=== PATIENT | male | born 1940 | race Caucasian/White ===

== ENCOUNTER 2020-07-13 07:58 | Outpatient (REF) | payer MEDICARE, SELFPAY ==
[2020-07-13 10:23] LABS: Hematocrit 42.6 % (42-52); Hemoglobin 14.5 g/dl (14.0-18.0); Mean Corpuscular Hemoglobin 31.6 pg (27.0-33.0); Mean Corpuscular Volume 92.8 fL (80-98); Mean Platelet Volume 10.3 fL (9.4-12.4); Platelet Count 201 X10*3/uL (160-400); Red Blood Count 4.59 X10*6/uL (4.60-5.80); Red Cell Distribution Width 12.2 % (11.0-16.0); White Blood Count 6.2 X10*3/uL (4.8-10.8)
[2020-07-13 10:27] LABS: Estimated Average Glucose 137 mg/dL; Hemoglobin A1c % 6.4 %
[2020-07-13 10:48] LABS: Glucose Urine UA NEG (NEG); Leukocyte Esterase Urine NEG (NEG); Nitrite Urine NEG (NEG); PH 6.5 (5.0-8.0); Urine Blood NEG (NEG); Urine Ketones NEG (NEG); Urine Protein NEG (NEG-TRACE)
[2020-07-13 10:50] LABS: Appearance Urine CLEAR; Color Urine YELLOW
[2020-07-13 10:54] LABS: Alanine Aminotransferase 17 U/L (0-40); Albumin Level 3.7 g/dL (3.5-5.0); Alkaline Phosphatase 60 U/L (39-117); Aspartate Amino Transferase 19 U/L (5-37); Bilirubin Total 1.1 mg/dL (0.0-1.0); Blood Urea Nitrogen 21 mg/dL (9-16); Calcium 8.8 mg/dL (8.4-10.2); Estimated Glomerular Filt Rate > 60; Glucose Random 120 mg/dL (60-115); Total Protein 6.1 g/dL (6.5-8.0)
[2020-07-13 11:23] LABS: Anion Gap 10 (12-20); Carbon Dioxide 31 mmol/L (22-29); Chloride 104 mmol/L (96-108); Potassium 4.4 mmol/l (3.3-5.1); Sodium 141 mmol/L (135-145)
[2020-07-13 11:33] LABS: Creatinine Urine 110.03 mg/dL; Microalbumin Urine < 5.0 mg/L
== END 2020-07-13 07:59 | disposition home or self-care (01) ==
LOC: HO.10HDL 07:58
PROVIDERS: PCP Internal Medicine; Visit Provider Internal Medicine
DX: I10 Essential (primary) hypertension (principal); K21.9 Gastro-esophageal reflux disease without esophagitis; R73.01 Impaired fasting glucose; E78.00 Pure hypercholesterolemia, unspecified
CPT/HCPCS: 36415; 80053; 81003; 82043; 83036; 85027

== ENCOUNTER 2020-08-16 07:34 | Outpatient (REF) | payer MEDICARE, SELFPAY ==
[2020-08-16 10:55] LABS: Anion Gap 8 (12-20); Blood Urea Nitrogen 16 mg/dL (9-16); Calcium 8.5 mg/dL (8.4-10.2); Carbon Dioxide 32 mmol/L (22-29); Chloride 104 mmol/L (96-108); Cholesterol 112 mg/dL; Estimated Glomerular Filt Rate > 60; Glucose Fasting 121 mg/dL (60-99); HDL Cholesterol 47 mg/dL; LDL Cholesterol Calculated 57 mg/dl; Potassium 4.3 mmol/l (3.3-5.1); Sodium 140 mmol/L (135-145); Triglycerides 43 mg/dL
[2020-08-16 11:27] LABS: Prostate Specific Antigen < 0.05 ng/mL (<0.05-4.0)
== END 2020-08-16 07:35 | disposition home or self-care (01) ==
LOC: HO.10HDL 07:34
PROVIDERS: Visit Provider Internal Medicine
DX: I10 Essential (primary) hypertension (principal); R73.01 Impaired fasting glucose; E78.00 Pure hypercholesterolemia, unspecified; Z12.5 Encounter for screening for malignant neoplasm of prostate; Z85.46 Personal history of malignant neoplasm of prostate
CPT/HCPCS: 80048; 80061; 84153

== ENCOUNTER → 2020-09-04 09:28 | Outpatient (BNVA) | payer MEDICARE, SELFPAY | PROVIDERS: PCP Internal Medicine; Referring Provider Internal Medicine; Visit Provider Internal Medicine Cardiovascular Disease | DX: I25.10 Atherosclerotic heart disease of native coronary artery without angina pectoris (principal); I48.0 Paroxysmal atrial fibrillation | CPT/HCPCS: 93005; 99212 ==

== ENCOUNTER 2021-02-19 08:24 | Outpatient (REF) | payer MEDICARE, SELFPAY ==
[2021-02-19 10:26] LABS: Appearance Urine CLEAR; Color Urine YELLOW; Glucose Urine UA NEG (NEG); Leukocyte Esterase Urine NEG (NEG); Nitrite Urine NEG (NEG); Urine Blood NEG (NEG); Urine Ketones NEG (NEG); Urine Protein NEG (NEG-TRACE)
[2021-02-19 10:35] LABS: Hematocrit 44.8 % (42-52); Hemoglobin 15.1 g/dl (14.0-18.0); Mean Corpuscular HGB Conc 33.7 g/dl (31.0-36.0); Mean Corpuscular Hemoglobin 31.5 pg (27.0-33.0); Mean Corpuscular Volume 93.5 fL (80-98); Mean Platelet Volume 10.3 fL (9.4-12.4); Platelet Count 213 X10*3/uL (160-400); Red Blood Count 4.79 X10*6/uL (4.60-5.80); Red Cell Distribution Width 12.2 % (11.0-16.0); White Blood Count 5.8 X10*3/uL (4.8-10.8)
[2021-02-19 10:48] LABS: Alanine Aminotransferase 22 U/L (0-40); Albumin Level 3.8 g/dL (3.5-5.0); Alkaline Phosphatase 62 U/L (39-117); Anion Gap 11 (12-20); Aspartate Amino Transferase 23 U/L (5-37); Bilirubin Total 1.3 mg/dL (0.0-1.0); Blood Urea Nitrogen 13 mg/dL (9-16); Calcium 9.1 mg/dL (8.4-10.2); Carbon Dioxide 31 mmol/L (22-29); Chloride 103 mmol/L (96-108); Cholesterol 119 mg/dL; Estimated Glomerular Filt Rate > 60; Glucose Random 119 mg/dL (60-115); HDL Cholesterol 50 mg/dL; LDL Cholesterol Calculated 59 mg/dl; Potassium 4.5 mmol/L (3.3-5.1); Sodium 140 mmol/L (135-145); Total Protein 6.3 g/dL (6.5-8.0); Triglycerides 54 mg/dL
[2021-02-19 11:10] LABS: Thyroid Stimulating Hormone 0.87 uIU/mL (0.32-4.0)
== END 2021-02-19 08:25 | disposition home or self-care (01) ==
LOC: HO.10HDL 08:24
PROVIDERS: Visit Provider Internal Medicine
DX: I10 Essential (primary) hypertension (principal); I25.10 Atherosclerotic heart disease of native coronary artery without angina pectoris; E78.00 Pure hypercholesterolemia, unspecified
CPT/HCPCS: 36415; 80053; 80061; 81003; 84443; 85027

== ENCOUNTER → 2021-03-12 08:58 | Outpatient (BNVA) | payer MEDICARE, SELFPAY | LOC: CF 10:24 | PROVIDERS: PCP Internal Medicine; Referring Provider Internal Medicine; Visit Provider Internal Medicine Cardiovascular Disease ==

== ENCOUNTER → 2021-03-12 10:24 | Outpatient (REF) | payer MEDICARE, SELFPAY ==
--- NOTE | 2021-03-12 10:26 | CA_ITS ---
Transthoracic Echocardiogram Amended Patient (Last, First, Middle): Sherman Watkins W Gender: Male Date of : 1940 Age: 80 Procedure Date: 03/12/2021 Procedure Type: Transthoracic Echocardiogram Location: OP Height: 167.64 cm Weight: 65.77 kg BSA: 1.74 m2 Heart Rate: bpm BP: 130 / 76 mmHg Director Of Acquisition Marketing: Referring MD: Hiro Wilson MD Symptoms: I20.0 - Unstable angina Study Quality: Good ECG Rhythm: Sinus Conclusions: - The left ventricular systolic function is mildly decreased. The visually estimated ejection fraction is between 40-45%. The calculated ejection fraction is 44% by biplane method. - The basal inferior and basal inferolateral segments are akinetic. - The mid inferior and mid inferolateral segments are hypokinetic. - No obvious valvular pathology seen on this study. Findings Left Ventricle Normal left ventricular cavity size. There is mildly increased left ventricular wall thickness. The left ventricular systolic function is mildly decreased. The visually estimated ejection fraction is between 40-45%. The calculated ejection fraction is 44% by biplane method. There is mild global hypokinesis. E/E prime ratio is between 8 and 15 consistent with indeterminate filling pressures. Evidence suggests grade I (mild) diastolic dysfunction. Wall Motion Rest Echo Findings The mid inferior and mid inferolateral segments are hypokinetic. The basal inferior and basal inferolateral segments are akinetic. Right Ventricle Normal right ventricular cavity size. There is normal right ventricular systolic function. Atria The left atrium is normal in size. The right atrium is normal in size. Aortic Valve There is a normal trileaflet aortic valve. There is no aortic valve stenosis. There is trace (trivial) aortic valve regurgitation. Mitral Valve The mitral valve appears normal. There is mild mitral valve regurgitation. There is no mitral valve stenosis. Pulmonic Valve The pulmonic valve was not well visualized. Tricuspid Valve Normal tricuspid valve structure. There is mild tricuspid valve regurgitation. The pulmonary artery systolic pressure is normal. Great Vessels The aortic annulus, sinuses of valsalva, and asc aorta are normal in size. Venous The inferior vena cava is normal in size and collapses greater than 50% with inspiration. Pericardium/Pleural There is no evidence of pericardial effusion. Prior Study Comparison Changes noted compared to prior study dated: 02/15/2020. LVEF diminished. See comments on wall motion. Recommendations, Care & Conclusions No obvious valvular pathology seen on this study. Measurements 2D Linear Measurements IVSd: 1.27 0.6-0.9/0.6-1.0 cm LVIDd: 3.87 3.9-5.3/4.2-5.9 cm LVIDd Index: 2.22 2.4-3.2/2.2-3.1 cm/m2 LVIDs: 2.44 2.0-3.6 cm LVPWd: 1.23 0.7-1.1 cm Ao Root: 3.60 2.1-3.5 cm LA Diam: 3.70 2.7-3.8/3.0-4.0 cm LAIDs Index: 2.13 1.5-2.3 cm/m2 LV Mass: 208.53 67-162/88-224 g LV Mass Index: 119.85 43-95/49-115 g/m2 LVOT Diam: 2.10 3.0+(-)1.3 cm 2D Systolic Function EF 4C: 45.10 >55% EF 2C: 44.00 >55% EF BiP: 43.80 >55% Mitral Valve MV Pk E: 0.57 MV PK A: 0.39 MV Decel Time: 268.00 E/A: 1.50 E'Lateral: 6.96 E'Medial: 4.35 E/E' Med: 13.10 E/E' Lat: 8.20 PHT: 78.00 MVA PHT: 2.82 Decel Pepin: 2.13 Aortic Valve AoV Pk Tyler: 1.05 AoV Mn Tyler: 0.60 AoV VTI: 0.24 AoV Pk Grad: 4.00 Aov Mn Grad: 2.00 JAYSON Cont.VTI: 2.47 LVOT LVOT Pk Tyler: 0.68 LVOT Mn Tyler: 0.38 LVOT VTI: 0.17 LVOT Pk Grad: 2.00 LVOT Mn Grad: 1.00 LVOT Diam: 2.10 LVOT Area: 3.46 Diastolic Function MV Pk E: 0.57 MV Pk A: 0.39 E/A: 1.50 E'Medial: 4.35 E/E' Med: 13.10 E' Laterial: 6.96 E/E' Lat: 8.20 Tricuspid Valve TR Pk Tyler: 2.35 TR Pk Grad: 22.00 RA Press: 3.00 RVSP: 25.00 Great Vessels Aorta Ao Root-2D: 3.60 2.0-3.7 cm Ao Asc: 3.50 2.1-3.4 cm Pulmonary Valve PV Pk Tyler: 0.88 Peak PV Grad: 3.00 Updated in Other Vendor System with Status of Final Sony Steel MD electronically signed on 03/12/2021 11:49:40 AM with status of Final
== END ==
LOC: HO.CARD 10:24
PROVIDERS: Visit Provider Internal Medicine Cardiovascular Disease
DX: I20.0 Unstable angina (principal)
CPT/HCPCS: 93005; 93306; 99212

== ENCOUNTER 2021-03-12 11:29 | Inpatient (IN) | payer MEDICARE, SELFPAY ==
[2021-03-12] VITALS (10 sets, daily range): BP systolic 95–157; BP diastolic 58–97; PULSE 52–73; RESP 12–18; TEMP 36.5–36.6; O2SAT 93–98; BMI 23.4; BMI 27.2
--- NOTE | 2021-03-12 11:46 | ED.CHESTPAIN ---
HPI - Chest Pain General Chief Complaint: General Medical Stated Complaint: Chest Pain Time Seen by Provider: 03/12/21 11:46 Source: patient Mode of arrival: ambulatory Limitations: no limitations History of Present Illness HPI narrative: Patient was in the ED 1 week ago at [facility], they thought he was having a heart attack was admitted to observation. Related Data Home Medications Medication Instructions Recorded Confirmed apixaban 5 mg tablet 5 mg PO BID 09/04/20 03/12/21 lisinopril 10 mg tablet 10 mg PO DAILY 09/04/20 03/12/21 metoprolol tartrate 50 mg tablet 50 mg PO BID tab 09/04/20 03/12/21 Previous Rx's Medication Instructions Recorded atorvastatin 20 mg tablet 20 mg PO DAILY #90 tab 02/11/21 isosorbide mononitrate 30 mg 30 mg PO DAILY #30 tab 03/12/21 tablet,extended release 24 hr omeprazole magnesium 20 mg 20 mg PO DAILY #30 tab 03/12/21 tablet,delayed release Allergies Allergy/AdvReac Type Severity Reaction Status Date / Time No Known Allergies Allergy Unverified 06/14/20 15:29 Review of Systems Constitutional: Constitutional: Reports no additional constitutional complaints Eyes: Eyes: Reports no additional eye complaints ENT: Denies dizziness Cardiovascular: Cardiovascular: Reports no additional cardiovascular complaints Respiratory: Respiratory: Reports as per HPI Gastrointestinal: Gastrointestinal: Reports no additional gastrointestinal complaints Musculoskeletal: Musculoskeletal: Reports no additional musculoskeletal complaints Integumentary/Breasts: Skin/Breast: Denies rash Neurologic: Reports system reviewed and no additional complaints, except as documented, Denies dizziness and Denies Sensory deficit (Neuro) Psychiatric: Psychiatric: Denies anxiety [facility] Past Medical History Medical History CAD (coronary artery disease) HTN (hypertension) Hyperlipidemia Paroxysmal atrial fibrillation Surgical History History of hip replacement Hx of cardiac cath Hx of prostatectomy Stented coronary artery Family History Family History Father Diabetes Mother No problems noted. Social History Social History Alcohol intake: current Alcohol intake frequency: holidays/special occasions only Alcohol type: beer Patient Tobacco Use Status: Never used Tobacco Use of substances other than those prescribed or required for medical reasons: No Advance Directives: Yes Advance Directives Information Provided: No Advance Directives on File: No Physical Exam Vital Signs: Vital Signs: Last Vital Signs Temp 97.7 F 03/12/21 11:46 Pulse 57 03/12/21 12:15 Resp 12 03/12/21 11:46 BP 150/81 H 03/12/21 12:15 Pulse Ox 93 03/12/21 11:46 Body Mass Index 23.4 Const: General: healthy appearing Nutritional Appearance: average body habitus Orientation/consciousness: oriented to person and patient oriented x3 Limitations: no limitations HENMT: Head: Yes normal to inspection Ears: external ears normal General nose exam: Normal external nose present Mouth: Normal oral and palatal mucosa present and oropharynx normal Throat: Yes posterior oropharynx normal Eyes: General: appearance normal, both eyes and all related structures Neck: Other: supple Neck: Yes normal visual inspection Chest: Chest palpation & inspection: normal inspection of the chest Resp: Auscultation: clear to auscultation bilaterally Cardio: Jugular venous distension: no JVD Rate: regular rate Rhythm: regular rhythm Heart sounds: S1 normal heart sound present and S2 normal heart sound present GI: Inspection: Yes normal to inspection Palpation (GI): Soft to palpation, nontender and No hepatosplenomegaly present Auscultation: normal bowel sounds : General: Yes no CVA tenderness Back/Spine/Pelvis: Back: no CVA tenderness Skin: General skin exam: no rashes or lesions noted Neuro: General: oriented to person and patient oriented x3 Cranial nerves: Yes CN's II-XII intact bilaterally Motor exam (neuro): 5/5 motor strength present throughout Sensory Exam: No Sensory deficit (Neuro) Extrem: General: Yes normal to inspection Psych: Appearance: grossly normal Course Course Course Narrative: Discussed with Dr. Wilson, went to see patient and has more chest pain inferior dynamic twaves, echo with new posterior changes. Admit today for likely posterior ischemia Reevaluation(s) Reevaluation #1: troponin was positive, will admit Time: 13:36 MDM - Chest Pain Lab Data Result diagrams: 03/12/21 12:01 03/12/21 12:01 Labs: Lab Results 03/12/21 03/12/21 03/12/21 Range/Units 12:01 12:01 12:01 WBC 6.7 (4.8-10.8) X10*3/uL RBC 5.12 (4.60-5.80) X10*6/uL Hgb 16.2 (14.0-18.0) g/dl Hct 47.4 (42-52) % MCV 92.6 (80-98) fL MCH 31.6 (27.0-33.0) pg MCHC 34.2 (31.0-36.0) g/dl RDW 12.2 (11.0-16.0) % Plt Count 209 (160-400) X10*3/uL MPV 9.7 (9.4-12.4) fL Immature Gran % (Auto) 0.3 (0.0-0.4) % Neut % (Auto) 77.6 H (45-73) % Lymph % (Auto) 12.7 L (20-40) % [place] % (Auto) 8.1 (2-11) % Eos % (Auto) 0.7 (0-4) % Baso % (Auto) 0.6 (0-2) % Lymph # (Auto) 0.9 L (1.2-4.9) X10*3/uL [place] # (Auto) 0.5 (0.1-1.2) X10*3/uL Eos # (Auto) 0.1 (0.0-0.4) X10*3/uL Baso # (Auto) 0.0 (0.0-0.2) X10*3/uL Abs Immat Gran (auto) 0.02 (0.00-0.03) X10*3/uL Absolute Neuts (auto) 5.2 (2.0-8.3) X10*3/uL Absolute Nucleated RBC 0.000 (0.0-0.012) X10*3/uL Nucleated RBC % (auto) 0.0 (0.0-0.2) /100WBC Sodium 143 (135-145) mmol/L Potassium 4.5 (3.3-5.1) mmol/L Chloride 105 (96-108) mmol/L Carbon Dioxide 28 (22-29) mmol/L Anion Gap 15 (12-20) BUN 17 H (9-16) mg/dL Creatinine 0.92 (0.5-1.4) mg/dL Estim Creat Clear Calc 57.8 Estimated GFR > 60 Random Glucose 162 H D (60-115) mg/dL Calcium 9.7 D (8.4-10.2) mg/dL Troponin I High Sens 135.9 H* (<3.5-35.0) ng/L ECG Data ECG #1: Attestation: I personally reviewed and interpreted this ECG as follows: Interpretation: sinus rate 50, no st or twave changes Discharge Plan Discharge Clinical Impression: Unstable angina CAD (coronary artery disease) Qualifiers: Coronary Disease-Associated Artery/Lesion type: unspecified vessel or lesion type [place] vs. transplanted heart: [place] heart Associated angina: with unstable angina Qualified Code(s): I25.110 - Atherosclerotic heart disease of [place] coronary artery with unstable angina pectoris Patient Disposition: Admitted As Inpatient
--- NOTE | 2021-03-12 11:58 | ECG_ITS ---
Test Reason : CHEST PAIN Blood Pressure : / mmHG Vent. Rate : 051 BPM Atrial Rate : 051 BPM P-R Int : 198 ms QRS Dur : 108 ms QT Int : 478 ms P-R-T Axes : 072 -24 -14 degrees QTc Int : 440 ms Sinus bradycardia Septal infarct , age undetermined Abnormal ECG When compared with ECG of 27-AUG-2018 07:57, Nonspecific T wave abnormality now evident in Lateral leads Referred By: Prem Walsh Electronically Signed By:KEERTHI ANDERSEN
[2021-03-12 12:14] LABS: MANUAL DIFF FLAG NO
[2021-03-12 12:15] LABS: Basophils Percent Auto 0.6 % (0-2); Eosinophils Absolute Auto 0.1 X10*3/uL (0.0-0.4); Eosinophils Percent Auto 0.7 % (0-4); Hematocrit 47.4 % (42-52); Hemoglobin 16.2 g/dl (14.0-18.0); Imm Gran Abs Auto 0.02 X10*3/uL (0.00-0.03); Imm Gran Pct Auto 0.3 % (0.0-0.4); Lymphocytes Absolute Auto 0.9 X10*3/uL (1.2-4.9); Lymphocytes Percent Auto 12.7 % (20-40); Mean Corpuscular HGB Conc 34.2 g/dl (31.0-36.0); Mean Corpuscular Hemoglobin 31.6 pg (27.0-33.0); Mean Corpuscular Volume 92.6 fL (80-98); Mean Platelet Volume 9.7 fL (9.4-12.4); Monocytes Absolute Auto 0.5 X10*3/uL (0.1-1.2); Monocytes Percent Auto 8.1 % (2-11); Neutrophils Absolute Auto 5.2 X10*3/uL (2.0-8.3); Neutrophils Percent Auto 77.6 % (45-73); Platelet Count 209 X10*3/uL (160-400); Red Blood Count 5.12 X10*6/uL (4.60-5.80); Red Cell Distribution Width 12.2 % (11.0-16.0); White Blood Count 6.7 X10*3/uL (4.8-10.8)
[2021-03-12] MEDS: Nitroglycerin 2 % Oint 1 GM Packet 1 INCH TRANSDERMA (12:15)
[2021-03-12] MEDS: Aspirin Enteric Coated 81 MG TABLET.DR 162 MG PO (12:16)
[2021-03-12 12:48] LABS: Anion Gap 15 (12-20); Blood Urea Nitrogen 17 mg/dL (9-16); Calcium 9.7 mg/dL (8.4-10.2); Carbon Dioxide 28 mmol/L (22-29); Chloride 105 mmol/L (96-108); Creatinine Clr Calc Pharmacy 57.8; Estimated Glomerular Filt Rate > 60; Glucose Random 162 mg/dL (60-115); Potassium 4.5 mmol/L (3.3-5.1); Sodium 143 mmol/L (135-145)
[2021-03-12 13:00] LABS: Troponin-I High Sensitivity 135.9 ng/L (<3.5-35.0)
--- NOTE | 2021-03-12 13:53 | PHA.MEDREC ---
Pharmacy Consult ? Medication Reconciliation Pharmacy has completed the medication reconciliation.
--- NOTE | 2021-03-12 14:06 | PM.EVENT ---
Event Note Date of Service: 03/12/21 Event Note: Patient seen and examined independently and was present during balderrama portion of E/M service. Agree with midlevel's history, physical, assessment, and plan. 80M presented with chest pain NSTEMI iv heparin to start at 2000 (12 hours from eliquis) cardio eval
[2021-03-12 14:10] LABS: COVID-19 Test Negative (Negative); IDNOW Serial# 9DD0AD1C
--- NOTE | 2021-03-12 14:45 | PM.IMHP ---
History of Present Illness Date of Service: 03/12/21 Chief Complaint: Abnormal EKG 80 year old man presenting from his [employer] office with burning restrosternal epigastric discomfort with history of CAD and unstable angina. Echocardiogram was performed in the [employer] office which showed new wall motion abnormalities. Patient was advised to go to the ER for further evaluation. Initial troponin 135.9. He currently has no chest pain. Other labs within acceptable limits, vital signs stable. He was given full-dose aspirin, nitro and statin. He will be admitted for further management of NSTEMI. Review of Systems Review of Systems: Denies any recent fever chills or decrease in appetite respiratory denies any shortness of breath coverage production cardiovascular is adjustment of any PND or edema gastrointestinal denies any dysphagia abdominal pain nausea vomiting or diarrhea genitourinary denies any dysuria frequency or hematuria musculoskeletal denies any joint pain or swelling neuropsych denies any weakness or seizures all other systems reviewed are negative [facility] Medical History CAD (coronary artery disease) HTN (hypertension) Hyperlipidemia Paroxysmal atrial fibrillation Family History Father Diabetes Mother No problems noted. Surgical History History of hip replacement Hx of cardiac cath Hx of prostatectomy Stented coronary artery Social History Alcohol intake: current Alcohol intake frequency: holidays/special occasions only Alcohol type: beer Patient Tobacco Use Status: Never used Tobacco Use of substances other than those prescribed or required for medical reasons: No Advance Directives: Yes Advance Directives Information Provided: No Advance Directives on File: No Meds Allergies Allergy/AdvReac Type Severity Reaction Status Date / Time No Known Allergies Allergy Unverified 06/14/20 15:29 Active Medications: Current Medications Generic Name Dose Route Start Last Admin Trade Name Freq PRN Reason Stop Dose Admin Acetaminophen 650 mg 03/12/21 14:41 Acetaminophen 325 Mg Tablet PO Q6H PRN Pain, Mild (Pain Scale 1-3) Aspirin 162 mg 03/12/21 12:00 03/12/21 12:16 Aspirin Enteric Coated 81 Mg Tablet. PO 162 mg DAILY JUAN ANTONIO Administration Atorvastatin Calcium 80 mg 03/13/21 09:00 Atorvastatin Calcium 80 Mg Tablet PO DAILY [facility] Famotidine 20 mg 03/12/21 21:00 Famotidine 20 Mg Tablet PO BID [facility] Lisinopril 10 mg 03/13/21 09:00 Lisinopril 10 Mg Tablet PO DAILY [facility] Protocol Metoprolol Tartrate 25 mg 03/12/21 21:00 Metoprolol Tartrate 25 Mg Tablet PO BID [facility] Protocol Ondansetron HCl 4 mg 03/12/21 14:41 Ondansetron Hcl 4 Mg/2 Ml Vial IVPUSH Q8H PRN Nausea and Vomiting Pharmacy Consult 1 each 03/12/21 13:31 Consult Rx Perform Med Rec MISCELLANE ONCE PRN Consult order Sodium Chloride 3 ml 03/12/21 16:00 0.9 % Sodium Chloride Flush 3 Ml Syringe IVFLUSH QSHIFT [facility] Vitamin D 25 mcg 03/13/21 09:00 Cholecalciferol (Vitamin D3) 25 Mcg Tablet PO DAILY [facility] Home Medications Medication Instructions Recorded Confirmed Last Taken Type apixaban 5 mg tablet 5 mg PO BID 09/04/20 03/12/21 03/12/21 History lisinopril 10 mg tablet 10 mg PO DAILY 09/04/20 03/12/21 03/12/21 History metoprolol tartrate 50 mg tablet 25 mg PO BID tab 09/04/20 03/12/21 03/12/21 History cholecalciferol (vitamin D3) 25 mcg PO DAILY 03/12/21 03/12/21 03/12/21 History coenzyme Q10 [Co Q-10] 30 mg PO DAILY 03/12/21 03/12/21 03/12/21 History famotidine 1 tab PO BID 03/12/21 03/12/21 03/12/21 History vitamin B complex [B Complex] 1 tab PO DAILY 03/12/21 03/12/21 03/11/21 History Physical Exam Vital Signs and Narrative: Vital Signs: Last Vital Signs Temp 97.7 F 03/12/21 11:46 Pulse 64 03/12/21 13:49 Resp 18 03/12/21 13:49 BP 112/74 03/12/21 13:49 Pulse Ox 93 03/12/21 13:49 Body Mass Index 23.4 Appearing in no acute distress head is normocephalic atraumatic eyes pupils are PERRLA sclera is anicteric mouth throat mucous membranes are intact and moist neck is supple no lymphadenopathy, no JVD noted lung sounds are clear to auscultation heart regular rate rhythm, clear S1, S2 positive bowel sounds, abdomen is soft, nontender neuro patient is alert x3, no focal deficits Results Labs CBC and Chem 7: 03/12/21 12:01 03/12/21 12:01 Labs: Laboratory Results - last 24 hr 03/12/21 03/12/21 03/12/21 12:01 12:01 12:01 MCV 92.6 MCH 31.6 MCHC 34.2 RDW 12.2 Plt Count 209 MPV 9.7 Immature Gran % (Auto) 0.3 Neut % (Auto) 77.6 H Lymph % (Auto) 12.7 L [place] % (Auto) 8.1 Eos % (Auto) 0.7 Baso % (Auto) 0.6 Lymph # (Auto) 0.9 L [place] # (Auto) 0.5 Eos # (Auto) 0.1 Baso # (Auto) 0.0 Abs Immat Gran (auto) 0.02 Absolute Neuts (auto) 5.2 Absolute Nucleated RBC 0.000 Nucleated RBC % (auto) 0.0 Anion Gap 15 Estim Creat Clear Calc 57.8 Estimated GFR > 60 Random Glucose 162 H D Calcium 9.7 D Troponin I High Sens 135.9 H* COVID-19 (FER) COVID-19 Clin Com 03/12/21 13:48 MCV MCH MCHC RDW Plt Count MPV Immature Gran % (Auto) Neut % (Auto) Lymph % (Auto) [place] % (Auto) Eos % (Auto) Baso % (Auto) Lymph # (Auto) [place] # (Auto) Eos # (Auto) Baso # (Auto) Abs Immat Gran (auto) Absolute Neuts (auto) Absolute Nucleated RBC Nucleated RBC % (auto) Anion Gap Estim Creat Clear Calc Estimated GFR Random Glucose Calcium Troponin I High Sens COVID-19 (FER) Negative COVID-19 Clin Com See Note Assessment and Plan (1) CAD (coronary artery disease): Qualifiers: Associated angina: with unstable angina Coronary Disease-Associated Artery/Lesion type: unspecified vessel or lesion type [place] vs. transplanted heart: [place] heart Qualified Code(s): I25.110 - Atherosclerotic heart disease of [place] coronary artery with unstable angina pectoris Status: Acute 80 year old man admitted with NSTEMI. Will likely be transferred to [facility] for cardiac cath. NSTEMI. Hx of CAD with stent -Cardiology following -ASA, statin, BB -hold eliquis and start heparin 12 hours after last dose Hypertension -Lisinopril GERD -Pepcid DVT prophylaxis with IV heparin Attending: Dr. Childress Full code
[2021-03-12 16:04] LABS: Troponin-I High Sensitivity 181.6 ng/L (<3.5-35.0)
--- NOTE | 2021-03-12 17:56 | MHC.CM.PN ---
CM met with patient. Awaiting room assignment. Admitted with NSTEMI. IMM reviewed and signed per protocol. HCP/ Annia Watkins ([phone]). HCP is not on file. Pt to call to bring into hospital tomorrow. A&Ox3. Pt independednt and leads a very active lifestyle, hiking and hunting. No service. Received 2 doses Pfizer Covid vaccine. Pt is a likely transfer to [facility] for cardiac cath tomorrow. CM will follow for d/c needs.
--- NOTE | 2021-03-12 18:37 | SUR.OPER ---
Patient assisted back to bed after ambulating to the bathroom and back. Pt denies any chest pain, shortness or breath or dizziness.
[2021-03-12] MEDS: 0.9 % Sodium Chloride Flush 3 ML SYRINGE IVFLUSH (19:15)
[2021-03-12 19:48] LABS: INTERNATIONAL NORM RATIO 1.5 (0.9-1.1); Prothrombin Time 17.3 SEC (10.8-13.0)
[2021-03-12 19:51] LABS: PTT Heparin Drip 38.6 SEC (53-77.9)
--- NOTE | 2021-03-12 20:34 | PC.NURSE ---
[facility] unable to take report x 2. Hospitalist aware of delay with Heparin infusion.
[2021-03-12] MEDS: Heparin Sodium,Porcine 5,000 UNIT/ML VIAL 2700 UNIT IVPUSH (20:52)
[2021-03-12] MEDS: Heparin Sodium,Porcine/1/2NS 25,000 UNIT/250 ML IV.SOLN 8.15 UNIT IVCONT (20:54)
[2021-03-12] MEDS: Metoprolol Tartrate 25 MG TABLET PO (20:55)
[2021-03-12] MEDS: Famotidine 20 MG TABLET PO (20:55)
--- NOTE | 2021-03-12 20:58 | PC.NURSE ---
Pt medicated with Heparin, infusion started per protocol @ 12 units/kg/hr. Pt pain free at this time. VSS. Continue to monitor.
--- NOTE | 2021-03-12 21:04 | PC.NURSE ---
Report given to [facility] RN.
[2021-03-13 03:49] LABS: PTT Heparin Drip 114.9 SEC (53-77.9)
[2021-03-13] MEDS: Acetaminophen 325 MG TABLET 650 MG PO (05:46)
[2021-03-13 06:00] VITALS: BMI 24.5
[2021-03-13 07:03] LABS: MANUAL DIFF FLAG NO
[2021-03-13 07:07] LABS: Basophils Absolute Auto 0.1 X10*3/uL (0.0-0.2); Basophils Percent Auto 0.7 % (0-2); Eosinophils Absolute Auto 0.1 X10*3/uL (0.0-0.4); Eosinophils Percent Auto 1.1 % (0-4); Hematocrit 43.1 % (42-52); Hemoglobin 14.6 g/dl (14.0-18.0); Imm Gran Abs Auto 0.02 X10*3/uL (0.00-0.03); Imm Gran Pct Auto 0.2 % (0.0-0.4); Lymphocytes Absolute Auto 1.3 X10*3/uL (1.2-4.9); Lymphocytes Percent Auto 14.7 % (20-40); Mean Corpuscular HGB Conc 33.9 g/dl (31.0-36.0); Mean Corpuscular Hemoglobin 31.5 pg (27.0-33.0); Mean Corpuscular Volume 93.1 fL (80-98); Mean Platelet Volume 10.3 fL (9.4-12.4); Monocytes Absolute Auto 0.7 X10*3/uL (0.1-1.2); Monocytes Percent Auto 8.2 % (2-11); Neutrophils Absolute Auto 6.4 X10*3/uL (2.0-8.3); Neutrophils Percent Auto 75.1 % (45-73); Platelet Count 193 X10*3/uL (160-400); Red Blood Count 4.63 X10*6/uL (4.60-5.80); Red Cell Distribution Width 12.3 % (11.0-16.0); White Blood Count 8.5 X10*3/uL (4.8-10.8)
[2021-03-13 07:16] LABS: INTERNATIONAL NORM RATIO 1.3 (0.9-1.1); Prothrombin Time 15.5 SEC (10.8-13.0)
[2021-03-13 07:19] LABS: PTT Heparin Drip 36.5 SEC (53-77.9)
[2021-03-13 07:39] LABS: Anion Gap 10 (12-20); Blood Urea Nitrogen 17 mg/dL (9-16); Carbon Dioxide 31 mmol/L (22-29); Chloride 105 mmol/L (96-108); Creatinine Clr Calc Pharmacy 59.8; Estimated Glomerular Filt Rate > 60; Glucose Random 131 mg/dL (60-115); Potassium 3.9 mmol/L (3.3-5.1); Sodium 142 mmol/L (135-145)
[2021-03-13 08:00] VITALS: BP 101/65; PULSE 63; RESP 20; TEMP 36.7; O2SAT 93
[2021-03-13 08:00] LABS: Calcium 9.2 mg/dL (8.4-10.2)
[2021-03-13 08:58] VITALS: BP 101/65; PULSE 63
[2021-03-13] MEDS: Famotidine 20 MG TABLET PO (08:58)
[2021-03-13] MEDS: Atorvastatin Calcium 80 MG TABLET PO (08:58)
[2021-03-13] MEDS: Metoprolol Tartrate 25 MG TABLET PO (08:58)
[2021-03-13] MEDS: Cholecalciferol (Vitamin D3) 25 MCG TABLET PO (08:59)
[2021-03-13] MEDS: 0.9 % Sodium Chloride Flush 3 ML SYRINGE IVFLUSH (08:59)
[2021-03-13] MEDS: Aspirin Enteric Coated 81 MG TABLET.DR 162 MG PO (08:59)
--- NOTE | 2021-03-13 10:09 | PM.CNCAR ---
History of Present Illness History of Present Illness Date of Service: 03/13/21 Consult reason: chest pain Chief complaint: NSTEMI Narrative: This is a cardiology consultation regarding chest pain and elevated troponins. Patient was seen by Dr. 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 He had been complaining of chest pain. When I questioned him in detail, he states that he has been having chest pains in the lower substernal area for almost 3-4 months now. Lot of exertional characteristics and recently the pain got worse and he actually went to [facility]. It seems that was monitored overnight and then discharged home. However when he came to the office this pain is quite concerning and hence he was sent to the ER and admitted. High sensitivity troponins are indeed elevated. 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 Otherwise he has been fairly stable except for the recent onset of chest pain. He also has proximal atrial fibrillation for which she is on Eliquis. Last dose was yesterday morning. Review of Systems Review of Systems: Yes all other systems are reviewed and are negative Cardiovascular: Cardiovascular: Reports as per HPI, Reports no additional cardiovascular complaints, Denies acrocyanosis, Denies cool extremities, Denies painful fingertips, Reports chest pain, Denies chest pain at rest, Denies diaphoresis, Denies syncope, Denies irregular heart rhythm, Denies claudication, Denies leg edema, Denies lightheadedness, Denies palpitations and Denies dyspnea Respiratory: Respiratory: Denies dyspnea Neurologic: Denies syncope Endocrine: Endocrine: Denies palpitations [facility] Past Medical History Medical History CAD (coronary artery disease) HTN (hypertension) Hyperlipidemia Paroxysmal atrial fibrillation Family History Family History Father Diabetes Mother No problems noted. Surgical History Surgical History History of hip replacement Hx of cardiac cath Hx of prostatectomy Stented coronary artery Social History Social History Household Members: Spouse Housing: House Do you presently have visiting nurse or other home services: No Alcohol intake: current Alcohol intake frequency: holidays/special occasions only Alcohol type: beer Patient Tobacco Use Status: Never used Tobacco Use of substances other than those prescribed or required for medical reasons: No Currently Displaying Signs/Symptoms of Drug Intoxication Withdrawal: No Have you been hit, kicked, punched, or otherwise hurt by someone within the past year? If so, by whom?: No Do you feel safe in your current relationship?: Yes Is there a partner from a previous relationship who is making you feel unsafe now?: No Are you made to feel afraid or neglected: No Advance Directives: Yes Advance Directives Information Provided: No Advance Directives on File: No Advance Directives Date on File: 03/12/21 Do you have thoughts of harming others: None Do you have a plan to hurt others: No Plan Recently lost weight without trying: No service: No Current occupational status: retired [employer] Allergies Allergy/AdvReac Type Severity Reaction Status Date / Time No Known Allergies Allergy Verified 03/13/21 01:03 Active Medications: Current Medications Generic Name Dose Route Start Last Admin Trade Name Luisq PRN Reason Stop Dose Admin Acetaminophen 650 mg 03/12/21 14:41 03/13/21 05:46 Acetaminophen 325 Mg Tablet PO 650 mg Q6H PRN Administration Pain, Mild (Pain Scale 1-3) Aspirin 162 mg 03/12/21 12:00 03/13/21 08:59 Aspirin Enteric Coated 81 Mg Tablet. PO 162 mg DAILY JUAN ANTONIO Administration Atorvastatin Calcium 80 mg 03/13/21 09:00 03/13/21 08:58 Atorvastatin Calcium 80 Mg Tablet PO 80 mg DAILY JUAN ANTONIO Administration Famotidine 20 mg 03/12/21 21:00 03/13/21 08:58 Famotidine 20 Mg Tablet PO 20 mg BID JUAN ANTONIO Administration Heparin Sodium (Porcine) 2,700 unit 03/12/21 16:58 03/12/21 20:52 Heparin Sodium,Porcine 5,000 Unit/Ml Vial 40 unit/kg (2700 unit) 2,700 unit IVPUSH Administration BOLUS PRN 40 unit/kg - Heparin Protocol Heparin Sodium (Porcine) 5,400 unit 03/12/21 16:58 Heparin Sodium,Porcine 5,000 Unit/Ml Vial 80 unit/kg (5400 unit) IVPUSH BOLUS PRN 80 unit/kg - Heparin Protocol Heparin Sodium/Sodium Chloride 25,000 unit in 250 mls @ 0 mls/hr 03/12/21 20:00 03/13/21 07:33 IVCONT 8 units/kg/hr .Q0M JUAN ANTONIO 5.43 mls/hr Titration Protocol Per Protocol Metoprolol Tartrate 25 mg 03/12/21 21:00 03/13/21 08:58 Metoprolol Tartrate 25 Mg Tablet PO 25 mg BID [facility] Administration Protocol Ondansetron HCl 4 mg 03/12/21 14:41 Ondansetron Hcl 4 Mg/2 Ml Vial IVPUSH Q8H PRN Nausea and Vomiting Pharmacy Consult 1 each 03/12/21 13:31 Consult Rx Perform Med Rec MISCELLANE ONCE PRN Consult order Sodium Chloride 3 ml 03/12/21 16:00 03/13/21 08:59 0.9 % Sodium Chloride Flush 3 Ml Syringe IVFLUSH 3 ml QSHIFT [facility] Administration Vitamin D 25 mcg 03/13/21 09:00 03/13/21 08:59 Cholecalciferol (Vitamin D3) 25 Mcg Tablet PO 25 mcg DAILY [facility] Administration Home Medications Medication Instructions Recorded Confirmed Last Taken Type apixaban 5 mg tablet 5 mg PO BID 09/04/20 03/12/21 03/12/21 History lisinopril 10 mg tablet 10 mg PO DAILY 09/04/20 03/12/21 03/12/21 History metoprolol tartrate 50 mg tablet 25 mg PO BID tab 09/04/20 03/12/21 03/12/21 History cholecalciferol (vitamin D3) 25 mcg PO DAILY 03/12/21 03/12/21 03/12/21 History coenzyme Q10 [Co Q-10] 30 mg PO DAILY 03/12/21 03/12/21 03/12/21 History famotidine 1 tab PO BID 03/12/21 03/12/21 03/12/21 History vitamin B complex [B Complex] 1 tab PO DAILY 03/12/21 03/12/21 03/11/21 History Physical Exam Vital Signs: Vital Signs: Last Vital Signs Temp 98.1 F 03/13/21 08:00 Pulse 63 03/13/21 08:58 Resp 20 03/13/21 08:00 BP 101/65 03/13/21 08:58 Pulse Ox 93 03/13/21 08:00 Body Mass Index 24.5 Const: General: cooperative, comfortable and no acute distress Orientation/consciousness: patient oriented x3 HENMT: Other: Unremarkable Neck: Neck: Yes normal visual inspection Chest: Chest palpation & inspection: normal inspection of the chest Resp: Auscultation: clear to auscultation bilaterally, no crackles and no wheezes Cardio: Jugular venous distension: no JVD Palpation: normal PMI Heart sounds: S1 normal heart sound present, S2 normal heart sound present, no gallops, no murmurs and no rubs GI: Palpation (GI): Soft to palpation Back/Spine/Pelvis: Other: unremarkable Skin: General skin exam: no rashes or lesions noted Neuro: General: patient oriented x3 Extrem: General: Yes no clubbing, cyanosis or edema Psych: Mental Status: mental status grossly normal Results Labs and Meds Result diagrams: 03/13/21 05:39 03/13/21 05:39 Lab results: Laboratory Results - last 24 hr 03/12/21 03/12/21 03/12/21 12:01 12:01 12:01 WBC 6.7 RBC 5.12 Hgb 16.2 Hct 47.4 MCV 92.6 MCH 31.6 MCHC 34.2 RDW 12.2 Plt Count 209 MPV 9.7 Immature Gran % (Auto) 0.3 Neut % (Auto) 77.6 H Lymph % (Auto) 12.7 L [place] % (Auto) 8.1 Eos % (Auto) 0.7 Baso % (Auto) 0.6 Lymph # (Auto) 0.9 L [place] # (Auto) 0.5 Eos # (Auto) 0.1 Baso # (Auto) 0.0 Abs Immat Gran (auto) 0.02 Absolute Neuts (auto) 5.2 Absolute Nucleated RBC 0.000 Nucleated RBC % (auto) 0.0 PT INR PTT (Heparin Protocol) Sodium 143 Potassium 4.5 Chloride 105 Carbon Dioxide 28 Anion Gap 15 BUN 17 H Creatinine 0.92 Estim Creat Clear Calc 57.8 Estimated GFR > 60 Random Glucose 162 H D Calcium 9.7 D Troponin I High Sens 135.9 H* COVID-19 (FER) COVID-19 Clin Com 03/12/21 03/12/21 03/12/21 13:48 15:10 19:22 WBC RBC Hgb Hct MCV MCH MCHC RDW Plt Count MPV Immature Gran % (Auto) Neut % (Auto) Lymph % (Auto) [place] % (Auto) Eos % (Auto) Baso % (Auto) Lymph # (Auto) [place] # (Auto) Eos # (Auto) Baso # (Auto) Abs Immat Gran (auto) Absolute Neuts (auto) Absolute Nucleated RBC Nucleated RBC % (auto) PT 17.3 H INR 1.5 H PTT (Heparin Protocol) 38.6 L Sodium Potassium Chloride Carbon Dioxide Anion Gap BUN Creatinine Estim Creat Clear Calc Estimated GFR Random Glucose Calcium Troponin I High Sens 181.6 H* COVID-19 (FER) Negative COVID-19 Clin Com See Note 03/13/21 03/13/21 03/13/21 02:56 05:39 05:39 WBC 8.5 RBC 4.63 Hgb 14.6 Hct 43.1 MCV 93.1 MCH 31.5 MCHC 33.9 RDW 12.3 Plt Count 193 MPV 10.3 Immature Gran % (Auto) 0.2 Neut % (Auto) 75.1 H Lymph % (Auto) 14.7 L [place] % (Auto) 8.2 Eos % (Auto) 1.1 Baso % (Auto) 0.7 Lymph # (Auto) 1.3 [place] # (Auto) 0.7 Eos # (Auto) 0.1 Baso # (Auto) 0.1 Abs Immat Gran (auto) 0.02 Absolute Neuts (auto) 6.4 Absolute Nucleated RBC 0.000 Nucleated RBC % (auto) 0.0 PT 15.5 H INR 1.3 H PTT (Heparin Protocol) 114.9 H* D Sodium Potassium Chloride Carbon Dioxide Anion Gap BUN Creatinine Estim Creat Clear Calc Estimated GFR Random Glucose Calcium Troponin I High Sens COVID-19 (FER) COVID-19 Clin Com 03/13/21 03/13/21 05:39 05:39 WBC RBC Hgb Hct MCV MCH MCHC RDW Plt Count MPV Immature Gran % (Auto) Neut % (Auto) Lymph % (Auto) [place] % (Auto) Eos % (Auto) Baso % (Auto) Lymph # (Auto) [place] # (Auto) Eos # (Auto) Baso # (Auto) Abs Immat Gran (auto) Absolute Neuts (auto) Absolute Nucleated RBC Nucleated RBC % (auto) PT INR PTT (Heparin Protocol) 36.5 L D Sodium 142 Potassium 3.9 Chloride 105 Carbon Dioxide 31 H Anion Gap 10 L BUN 17 H Creatinine 0.89 Estim Creat Clear Calc 59.8 Estimated GFR > 60 Random Glucose 131 H Calcium 9.2 Troponin I High Sens COVID-19 (FER) COVID-19 Clin Com ECG Attestation: I personally reviewed and interpreted this ECG as follows: Interpretation: Admission EKG shows sinus rhythm, 51/Min; T inversions in lead 3 and AVF. Nonspecific changes in V5, V6. Compared to prior EKG, the lateral nonspecific changes seem new. The inferior T inversions are more pronounced. Assessment and Plan (1) NSTEMI (non-ST elevated myocardial infarction): Status: Acute (2) Paroxysmal atrial fibrillation: Status: Acute Labs reviewed. Hemoglobin is 14.6. White cells 8.5. Platelets 193. Creatinine is 0.89. High sensitivity troponins are 135 and 181. Echocardiogram shows LVEF of 40-45%. Inferior wall motion abnormalities more pronounced than in the past. Overall, he needs a diagnostic cardiac catheterization and possibly intervention based on findings. He may remain on IV heparin. Last dose of Eliquis was yesterday morning. Otherwise on aspirin, beta-blockers and high-dose statins. We will make arrangements for transfer to [facility]. Procedures Date of Service Date of Service: 03/13/21
[2021-03-13 11:25] VITALS: BP 111/73; PULSE 62; RESP 19; TEMP 36.7; O2SAT 95
--- NOTE | 2021-03-13 12:52 | PM.DS ---
DS: Providers Provider Date of Service: 03/13/21 Date of admission: 03/12/21 14:41 Primary care physician: Kameron Sky MD Consults: 03/12/21 14:44 Consult to Cardiology Routine Consulting Provider: Sony Steel Reason for consultation: nstemi Has provider been notified: No DS: Diagnosis Discharge Diagnosis (1) NSTEMI (non-ST elevated myocardial infarction): Status: Acute (2) Paroxysmal atrial fibrillation: Status: Acute DS: Medications Discharge Medications Home Medications: Home Medications Medication Instructions Recorded Confirmed metoprolol tartrate 50 mg tablet 25 mg PO BID tab 09/04/20 03/12/21 cholecalciferol (vitamin D3) 25 mcg PO DAILY 03/12/21 03/12/21 coenzyme Q10 [Co Q-10] 30 mg PO DAILY 03/12/21 03/12/21 famotidine 1 tab PO BID 03/12/21 03/12/21 vitamin B complex 1 tab PO DAILY 03/12/21 03/12/21 Previous Rx's Medication Instructions Recorded aspirin 81 mg PO DAILY #1 tab 03/13/21 atorvastatin 80 mg PO DAILY #30 tab 03/13/21 heparin (porcine) 2,700 unit IVPUSH BOLUS PRN #1 ml 03/13/21 heparin(porcine) in 0.45% NaCl 25,000 unit CONTINUOUS IV INFUSION 03/13/21 .Q0M #1 ml lisinopril 5 mg PO DAILY #1 tab 03/13/21 DS: Summary Hospital Course Hospital Course: History of presenting illness 80-year-old gentleman with past medical history significant for paroxysmal atrial fibrillation on Eliquis, coronary artery disease, hypertension and hyperlipidemia was evaluated by his money order clerk due to symptoms of lower sternal chest pain with exertion intermittently for 3-4 months, patient was recently evaluated at [facility] for chest pain where he was monitored overnight and was subsequently discharged home since his workup was benign, patient was evaluated by his money order clerk Dr. Torres at his office on March 12 for evaluation of chest pain, since his pain was of concern he was transferred to [facility] where he was noted to have an elevated troponin and subsequently got admitted with a diagnosis of non ST elevation OR PMHx CAD (coronary artery disease) HTN (hypertension) Hyperlipidemia Paroxysmal atrial fibrillation 80-year-old gentleman admitted with a diagnosis of non ST elevation OR, High sensitivity troponins are 135 and 181. Echocardiogram shows LVEF of 40-45%. Inferior wall motion abnormalities more pronounced than in the past, patient needs a diagnostic cardiac catheterization and possibly intervention based on findings therefore being transferred to [facility], will continue IV heparin, statins aspirin beta-blockers and low-dose lisinopril, previously he was on Eliquis last dose of Eliquis was n 03/12 morning. Time Spent with Patient Time attestation: Total time spent providing and/or coordinating discharge services: Discharge coordination time: Greater than 30 minutes Quality: Stroke Does the patient have a stroke diagnosis?: No Physical Exam Vital Signs: Vital Signs: Last Vital Signs Temp 98.1 F 03/13/21 11:25 Pulse 62 03/13/21 11:25 Resp 19 03/13/21 11:25 BP 111/73 03/13/21 11:25 Pulse Ox 95 03/13/21 11:25 Body Mass Index 24.5 General no acute distress. Neck supple no JVD. CVS regular rate rhythm, Respiratory lungs clear to auscultation, no respiratory distress, no wheeze, no rhonchi. Gastrointestinal abdomen soft, nontender, bowel sounds audible, no guarding , no rigidity. Extremities no edema. Neuro nonfocal , speech clear. Skin no rash DS: Data Data Completed and Pending Labs on day of discharge: Laboratory Results - last 24 hr 03/12/21 03/12/21 03/12/21 12:01 13:48 15:10 WBC RBC Hgb Hct MCV MCH MCHC RDW Plt Count MPV Immature Gran % (Auto) Neut % (Auto) Lymph % (Auto) [place] % (Auto) Eos % (Auto) Baso % (Auto) Lymph # (Auto) [place] # (Auto) Eos # (Auto) Baso # (Auto) Abs Immat Gran (auto) Absolute Neuts (auto) Absolute Nucleated RBC Nucleated RBC % (auto) PT INR PTT (Heparin Protocol) Sodium Potassium Chloride Carbon Dioxide Anion Gap BUN Creatinine Estim Creat Clear Calc Estimated GFR Random Glucose Calcium Troponin I High Sens 135.9 H* 181.6 H* COVID-19 (FER) Negative COVID-19 Clin Com See Note 03/12/21 03/13/21 03/13/21 19:22 02:56 05:39 WBC RBC Hgb Hct MCV MCH MCHC RDW Plt Count MPV Immature Gran % (Auto) Neut % (Auto) Lymph % (Auto) [place] % (Auto) Eos % (Auto) Baso % (Auto) Lymph # (Auto) [place] # (Auto) Eos # (Auto) Baso # (Auto) Abs Immat Gran (auto) Absolute Neuts (auto) Absolute Nucleated RBC Nucleated RBC % (auto) PT 17.3 H 15.5 H INR 1.5 H 1.3 H PTT (Heparin Protocol) 38.6 L 114.9 H* D Sodium Potassium Chloride Carbon Dioxide Anion Gap BUN Creatinine Estim Creat Clear Calc Estimated GFR Random Glucose Calcium Troponin I High Sens COVID-19 (FER) COVID-19 Allocadia 03/13/21 03/13/21 03/13/21 05:39 05:39 05:39 WBC 8.5 RBC 4.63 Hgb 14.6 Hct 43.1 MCV 93.1 MCH 31.5 MCHC 33.9 RDW 12.3 Plt Count 193 MPV 10.3 Immature Gran % (Auto) 0.2 Neut % (Auto) 75.1 H Lymph % (Auto) 14.7 L [place] % (Auto) 8.2 Eos % (Auto) 1.1 Baso % (Auto) 0.7 Lymph # (Auto) 1.3 [place] # (Auto) 0.7 Eos # (Auto) 0.1 Baso # (Auto) 0.1 Abs Immat Gran (auto) 0.02 Absolute Neuts (auto) 6.4 Absolute Nucleated RBC 0.000 Nucleated RBC % (auto) 0.0 PT INR PTT (Heparin Protocol) 36.5 L D Sodium 142 Potassium 3.9 Chloride 105 Carbon Dioxide 31 H Anion Gap 10 L BUN 17 H Creatinine 0.89 Estim Creat Clear Calc 59.8 Estimated GFR > 60 Random Glucose 131 H Calcium 9.2 Troponin I High Sens COVID-19 (FER) COVID-19 Clin Com Discharge Plan Discharge Patient Disposition: Xfer Acute Care Hospital Discharge Diagnosis: Non ST-elevation OR Referrals: [facility] [Other] - 1 Week Kameron Sky MD [Primary Care Provider] - 1 Week Discharge Medications: New heparin(porcine) in 0.45% NaCl 25,000 unit/250 mL Parenteral Solution 25,000 unit continuous IV infusion .Q0M Qty: 1 RF: 0 heparin (porcine) 5,000 unit/mL Solution 2,700 unit IVPUSH BOLUS PRN (Reason: 40 Unit/Kg - Heparin Protocol) Qty: 1 RF: 0 atorvastatin 80 mg Tablet 80 mg PO DAILY Qty: 30 RF: 0 aspirin 81 mg Tablet,Delayed Release (Dr/Ec) 81 mg PO DAILY Qty: 1 RF: 0 lisinopril 5 mg Tablet 5 mg PO DAILY Qty: 1 RF: 0 Continued vitamin B complex Tablet Extended Release 1 tab PO DAILY RF: 0 famotidine 20 mg tablet 1 tab PO BID RF: 0 coenzyme Q10 [Co Q-10] 30 mg Capsule 30 mg PO DAILY RF: 0 cholecalciferol (vitamin D3) 25 mcg (1,000 unit) Tablet 25 mcg PO DAILY RF: 0 metoprolol tartrate 50 mg tablet 25 mg PO BID RF: 0 Discontinued atorvastatin 20 mg tablet 20 mg PO DAILY Qty: 90 RF: 1 Eliquis 5 mg tablet 5 mg PO BID RF: 0 lisinopril 10 mg tablet 10 mg PO DAILY RF: 0 Discharge Orders: Discharge Order (Routine); Ordered 03/13/21 Ordered By: Patti Juan Diet: low fat, low cholesterol Activity on Discharge: bed rest Stand Alone Forms: Patient Portal Discharge page Care Plan Goals: Transferred to [facility] for cardiac catheterization Health Concerns: Non ST-elevation OR/hyperlipidemia and paroxysmal atrial fibrillation continue all medications as prescribed, resume Eliquis for atrial fibrillation Plan of Treatment: Outpatient follow-up with Cardiology and primary care physician Assessment: As above
[2021-03-13 14:14] LABS: PTT Heparin Drip 49.4 SEC (53-77.9)
[2021-03-13] MEDS: Heparin Sodium,Porcine 5,000 UNIT/ML VIAL 2700 UNIT IVPUSH (15:05)
[2021-03-13 15:37] VITALS: BP 139/78; PULSE 65; RESP 16; TEMP 36.4; O2SAT 96
== END 2021-03-13 20:00 | disposition short-term general hospital (02) | DRG 282 ==
LOC: HO.ED 13:37 → HO.EDOVER 14:56 → HO.IMC 17:59
PROVIDERS: Internal Medicine; Admitting Provider Nurse Practitioner Acute Care; Emergency Provider Emergency Medicine; PCP Internal Medicine; Visit Provider Hospitalist
DX: I21.4 Non-ST elevation (NSTEMI) myocardial infarction (principal); E78.5 Hyperlipidemia, unspecified; K21.9 Gastro-esophageal reflux disease without esophagitis; I25.10 Atherosclerotic heart disease of native coronary artery without angina pectoris; I10 Essential (primary) hypertension; I48.0 Paroxysmal atrial fibrillation; Z20.822 Contact with and (suspected) exposure to COVID-19; Z79.82 Long term (current) use of aspirin; Z79.899 Other long term (current) drug therapy
CPT/HCPCS: 36415; 80048; 84484; 85025; 85610; 85730; 87635; 93005; 99285

== ENCOUNTER → 2021-03-22 08:32 | Outpatient (BNVA) | payer MEDICARE, SELFPAY | PROVIDERS: PCP Internal Medicine; Referring Provider Internal Medicine; Visit Provider Internal Medicine Cardiovascular Disease | DX: I22.2 Subsequent non-ST elevation (NSTEMI) myocardial infarction (principal); I25.5 Ischemic cardiomyopathy; I25.110 Atherosclerotic heart disease of native coronary artery with unstable angina pectoris; I48.0 Paroxysmal atrial fibrillation | CPT/HCPCS: 99212 ==

== ENCOUNTER → 2021-04-26 10:27 | Outpatient (REF) | payer MEDICARE, SELFPAY ==
--- NOTE | 2021-04-26 10:32 | CA_ITS ---
Transthoracic Echocardiogram Patient (Last, First, Middle): Sherman Watkins W Gender: Male Date of : 1940 Age: 80 Procedure Date: 04/26/2021 Procedure Type: Transthoracic Echocardiogram Location: OP Height: 170.18 cm Weight: 72.58 kg BSA: 1.84 m2 Heart Rate: bpm BP: 130 / 85 mmHg Steam Cleaning Machine Operator: LIZETH Referring MD: Hiro Wilson MD Symptoms: I42.9 - Cardiomyopathy, unspecified Study Quality: Good ECG Rhythm: Sinus Conclusions: - The left ventricular systolic function is mildly decreased. The calculated ejection fraction is 52% by biplane method. - The basal inferior segment is akinetic. - The inferolateral wall is hypokinetic. Findings Left Ventricle Normal left ventricular cavity size. There is mildly increased left ventricular wall thickness. The left ventricular systolic function is mildly decreased. The calculated ejection fraction is 52% by biplane method. E/E prime ratio is between 8 and 15 consistent with indeterminate filling pressures. Evidence suggests grade I (mild) diastolic dysfunction. Wall Motion Rest Echo Findings The inferolateral wall is hypokinetic. The basal inferior segment is akinetic. Prior Study Comparison Changes noted compared to prior study dated: 03/12/2021. LVEF slightly higher. Measurements 2D Linear Measurements IVSd: 1.39 0.6-0.9/0.6-1.0 cm LVIDd: 3.87 3.9-5.3/4.2-5.9 cm LVIDd Index: 2.10 2.4-3.2/2.2-3.1 cm/m2 LVIDs: 2.53 2.0-3.6 cm LVPWd: 0.95 0.7-1.1 cm LV Mass: 188.66 67-162/88-224 g LV Mass Index: 102.53 43-95/49-115 g/m2 2D Systolic Function EF 4C: 51.50 >55% EF 2C: 54.30 >55% EF BiP: 52.40 >55% Mitral Valve MV Pk E: 0.56 MV PK A: 0.45 MV Decel Time: 369.00 E/A: 1.20 E'Lateral: 6.74 E'Medial: 5.22 E/E' Med: 10.70 E/E' Lat: 8.30 PHT: 108.00 MVA PHT: 2.04 Decel [place]: 1.51 Diastolic Function MV Pk E: 0.56 MV Pk A: 0.45 E/A: 1.20 E'Medial: 5.22 E/E' Med: 10.70 E' Laterial: 6.74 E/E' Lat: 8.30 Updated in Other Vendor System with Status of Final Sony Steel MD electronically signed on 04/28/2021 1:26:50 PM with status of Final
== END ==
LOC: HO.CARD 10:27
PROVIDERS: PCP Internal Medicine; Visit Provider Internal Medicine Cardiovascular Disease
DX: I25.5 Ischemic cardiomyopathy (principal); I42.9 Cardiomyopathy, unspecified
CPT/HCPCS: 93308

== ENCOUNTER → 2021-05-10 08:28 | Outpatient (BNVA) | payer MEDICARE, SELFPAY | PROVIDERS: PCP Internal Medicine; Visit Provider Internal Medicine Cardiovascular Disease | DX: I25.110 Atherosclerotic heart disease of native coronary artery with unstable angina pectoris (principal); I48.0 Paroxysmal atrial fibrillation | CPT/HCPCS: 99212 ==

== ENCOUNTER 2021-08-27 08:08 | Outpatient (REF) | payer MEDICARE, SELFPAY ==
[2021-08-27 10:21] LABS: MANUAL DIFF FLAG NO
[2021-08-27 10:25] LABS: Basophils Absolute Auto 0.1 X10*3/uL (0.0-0.2); Basophils Percent Auto 0.8 % (0-2); Eosinophils Absolute Auto 0.2 X10*3/uL (0.0-0.4); Hematocrit 47.1 % (42.0-52.0); Hemoglobin 15.2 g/dl (14.0-18.0); Imm Gran Abs Auto 0.01 X10*3/uL (0.00-0.03); Imm Gran Pct Auto 0.2 % (0.0-0.4); Lymphocytes Absolute Auto 1.7 X10*3/uL (1.2-4.9); Lymphocytes Percent Auto 27.6 % (20-40); Mean Corpuscular HGB Conc 32.3 g/dl (31.0-36.0); Mean Corpuscular Hemoglobin 30.6 pg (27.0-33.0); Mean Platelet Volume 10.7 fL (9.4-12.4); Monocytes Absolute Auto 0.6 X10*3/uL (0.1-1.2); Monocytes Percent Auto 9.9 % (2-11); Neutrophils Absolute Auto 3.7 x10*3/uL (2.0-8.3); Neutrophils Percent Auto 58.5 % (45-73); Platelet Count 208 X10*3/uL (160-400); Red Blood Count 4.96 X10*6/uL (4.60-5.80); Red Cell Distribution Width 12.3 % (11.0-16.0); White Blood Count 6.2 X10*3/uL (4.8-10.8)
[2021-08-27 10:36] LABS: Alanine Aminotransferase 17 U/L (0-40); Albumin Level 3.6 g/dL (3.5-5.0); Alkaline Phosphatase 62 U/L (39-117); Anion Gap 9 (12-20); Aspartate Amino Transferase 19 U/L (5-37); Bilirubin Total 1.2 mg/dL (0.0-1.0); Blood Urea Nitrogen 20 mg/dL (9-16); Calcium 9.1 mg/dL (8.4-10.2); Carbon Dioxide 32 mmol/L (22-29); Chloride 105 mmol/L (96-108); Cholesterol 126 mg/dL; Estimated Glomerular Filt Rate > 60; Glucose Fasting 142 mg/dL (60-99); HDL Cholesterol 43 mg/dL; LDL Cholesterol Calculated 67 mg/dl; Potassium 4.3 mmol/L (3.3-5.1); Sodium 142 mmol/L (135-145); Total Protein 6.2 g/dL (6.5-8.0); Triglycerides 83 mg/dL
[2021-08-27 10:54] LABS: Thyroid Stimulating Hormone 1.57 uIU/mL (0.32-4.0)
== END 2021-08-27 08:09 | disposition home or self-care (01) ==
LOC: HO.10HDL 08:08
PROVIDERS: Visit Provider Internal Medicine
DX: I10 Essential (primary) hypertension (principal); E78.00 Pure hypercholesterolemia, unspecified
CPT/HCPCS: 36415; 80053; 80061; 84443; 85025

== ENCOUNTER → 2021-08-28 12:55 | Outpatient (BNVA) | payer MEDICARE, SELFPAY | PROVIDERS: PCP Internal Medicine; Referring Provider Internal Medicine; Visit Provider Internal Medicine Cardiovascular Disease | DX: I48.0 Paroxysmal atrial fibrillation (principal); I25.110 Atherosclerotic heart disease of native coronary artery with unstable angina pectoris | CPT/HCPCS: 93005; 99212 ==

== ENCOUNTER → 2021-09-05 11:18 | Outpatient (REF) | payer MEDICARE, SELFPAY ==
--- NOTE | 2021-09-05 11:21 | HM_ITS ---
Conclusion : 1. Patient was monitored for a total period of 14 days and 2 hours 2. Baseline rhythm is NSR with average HR of 63 bpm 3. Paroxysmal AF episodes with total burden of 1.52% with longest episode lasting 3 hours and 13 minutes 4. Frequent PVC with total burden of 12.6%, PVCs are multifocal 5. Frequent PACs with total burden of 2.7% 6. Four salvos of NSVT with longest 4 beats 1t 151 bpm 7. No patient reported events MTDD
== END ==
LOC: HO.CARD 11:18
PROVIDERS: PCP Internal Medicine; Visit Provider Internal Medicine Cardiovascular Disease
DX: I48.0 Paroxysmal atrial fibrillation (principal)
CPT/HCPCS: 93246

== ENCOUNTER → 2021-10-09 11:13 | Outpatient (BNVA) | payer MEDICARE, SELFPAY | PROVIDERS: PCP Internal Medicine; Referring Provider Internal Medicine; Visit Provider Internal Medicine Cardiovascular Disease | DX: I48.0 Paroxysmal atrial fibrillation (principal); I25.110 Atherosclerotic heart disease of native coronary artery with unstable angina pectoris; I25.2 Old myocardial infarction; Z79.01 Long term (current) use of anticoagulants; Z79.02 Long term (current) use of antithrombotics/antiplatelets; Z79.899 Other long term (current) drug therapy | CPT/HCPCS: 99212 ==

== ENCOUNTER → 2021-12-11 15:57 | Outpatient (BNVA) | payer MEDICARE, SELFPAY | PROVIDERS: PCP Internal Medicine; Visit Provider Internal Medicine Cardiovascular Disease | DX: I25.118 Atherosclerotic heart disease of native coronary artery with other forms of angina pectoris (principal); I22.2 Subsequent non-ST elevation (NSTEMI) myocardial infarction; I21.4 Non-ST elevation (NSTEMI) myocardial infarction; I11.9 Hypertensive heart disease without heart failure; I48.0 Paroxysmal atrial fibrillation; E78.5 Hyperlipidemia, unspecified; Z95.5 Presence of coronary angioplasty implant and graft; Z79.899 Other long term (current) drug therapy | CPT/HCPCS: 99212 ==

== ENCOUNTER 2021-12-18 11:16 | Outpatient (REF) | payer MEDICARE, SELFPAY ==
[2021-12-18 13:43] LABS: Cholesterol 126 mg/dL; HDL Cholesterol 45 mg/dL; LDL Cholesterol Calculated 67 mg/dl; Triglycerides 70 mg/dL
== END 2021-12-18 11:17 | disposition home or self-care (01) ==
LOC: HO.10HDL 11:16
PROVIDERS: Visit Provider Internal Medicine Cardiovascular Disease
DX: I22.2 Subsequent non-ST elevation (NSTEMI) myocardial infarction (principal)
CPT/HCPCS: 36415; 80061

== ENCOUNTER 2021-12-18 15:30 | Outpatient (REF) | payer MEDICARE, SELFPAY ==
[2021-12-18 16:08] LABS: Hemoglobin 14.4 g/dl (14.0-18.0); Mean Corpuscular HGB Conc 33.5 g/dl (31.0-36.0); Mean Corpuscular Hemoglobin 31.1 pg (27.0-33.0); Mean Corpuscular Volume 92.9 fL (80.0-98.0); Mean Platelet Volume 10.2 fL (9.4-12.4); Platelet Count 210 X10*3/uL (160-400); Red Blood Count 4.63 X10*6/uL (4.60-5.80); Red Cell Distribution Width 12.4 % (11.0-16.0); White Blood Count 5.5 X10*3/uL (4.8-10.8)
[2021-12-18 16:09] LABS: INTERNATIONAL NORM RATIO 1.3 (0.9-1.1); Prothrombin Time 14.9 SEC (9.9-13.0)
[2021-12-18 16:29] LABS: Anion Gap 11 (12-20); Blood Urea Nitrogen 19 mg/dL (9-16); Calcium 9.3 mg/dL (8.4-10.2); Carbon Dioxide 29 mmol/L (22-29); Chloride 104 mmol/L (96-108); Estimated Glomerular Filt Rate > 60; Glucose Random 152 mg/dL (60-115); Potassium 4.5 mmol/L (3.3-5.1); Sodium 139 mmol/L (135-145)
== END 2021-12-18 15:31 | disposition home or self-care (01) ==
LOC: HO.LAB 15:30
PROVIDERS: PCP Internal Medicine; Visit Provider Internal Medicine Cardiovascular Disease
DX: I20.8 Other forms of angina pectoris (principal); I21.4 Non-ST elevation (NSTEMI) myocardial infarction; I48.0 Paroxysmal atrial fibrillation
CPT/HCPCS: 36415; 80048; 85027; 85610

== ENCOUNTER → 2021-12-30 13:07 | Outpatient (BNVA) | payer MEDICARE, SELFPAY | PROVIDERS: PCP Internal Medicine; Referring Provider Internal Medicine; Visit Provider Internal Medicine Cardiovascular Disease | DX: I25.118 Atherosclerotic heart disease of native coronary artery with other forms of angina pectoris (principal); I48.0 Paroxysmal atrial fibrillation; Z79.01 Long term (current) use of anticoagulants; Z79.02 Long term (current) use of antithrombotics/antiplatelets; Z79.899 Other long term (current) drug therapy | CPT/HCPCS: 99212 ==

== ENCOUNTER → 2022-01-30 09:06 | Outpatient (BNVA) | payer MEDICARE, SELFPAY ==
[2022-01-17 13:22] VITALS: BP 122/70; BP 124/70; BMI 25.0
== END ==
PROVIDERS: PCP Internal Medicine; Referring Provider Internal Medicine; Visit Provider Internal Medicine Cardiovascular Disease
DX: I25.110 Atherosclerotic heart disease of native coronary artery with unstable angina pectoris (principal); I48.0 Paroxysmal atrial fibrillation
CPT/HCPCS: 99212

== ENCOUNTER → 2022-04-10 09:27 | Outpatient (REF) | payer MEDICARE, SELFPAY ==
[2022-01-17 13:22] VITALS: BP 122/70; BP 124/70
[2022-02-10 12:42] VITALS: BP 102/60; BMI 24.3
[2022-04-08 08:04] VITALS: BP 112/64; BMI 24.3
--- NOTE | 2022-04-10 09:30 | CA_ITS ---
Transthoracic Echocardiogram Patient (Last, First, Middle): Sherman Watkins W Gender: Male Date of : 1940 Age: 81 Procedure Date: 04/10/2022 Procedure Type: Transthoracic Echocardiogram Location: OP Height: 170.18 cm Weight: 72.58 kg BSA: 1.84 m2 Heart Rate: bpm BP: 120 / 80 mmHg Customs Brokerage Manager: TO Referring MD: Hiro Wilson MD Wool Fleece Grader: Hiro Wilson MD Symptoms: I48.0 - Paroxysmal atrial fibrillation Study Quality: Adequate ECG Rhythm: Atrial Fibrillation Conclusions: - 1. Low normal LV systolic function with LVEF of 50-55% 2. Moderately dilated left atrium 3. Mild aortic and mitral regurgitation 4. Mildly dilated ascending aorta 5. Normal RV systolic pressure 6. No pericardial effusion Findings Left Ventricle Normal left ventricular cavity size. There is normal left ventricular wall thickness. The left ventricular systolic function is low normal. The visually estimated ejection fraction is between 50-55%. There is mild septal asymmetric hypertrophy. Right Ventricle Normal right ventricular cavity size and systolic function. Atria The left atrium is moderately dilated. There is lipomatous hypertrophy of the interatrial septum. There is no evidence of interatrial shunt. The right atrium is mildly dilated. Aortic Valve Normal aortic valve structure and function. There is no aortic valve stenosis. There is mild aortic valve regurgitation. Mitral Valve There is mild anterior mitral leaflet thickening. The posterior mitral leaflet has restricted mobility. There is mild mitral valve regurgitation. There is no mitral valve stenosis. Pulmonic Valve The pulmonic valve is likely normal. There is mild pulmonic valve regurgitation. Tricuspid Valve Normal tricuspid valve structure. There is mild tricuspid valve regurgitation. The right ventricular systolic pressure is normal. The right ventricular systolic pressure is 29 mmHg. There is no evidence of pulmonary hypertension. Great Vessels The pulmonary artery was not well visualized. There is mild dilatation of the ascending aorta measuring 3.80 cm. Venous The inferior vena cava is normal in size and collapses greater than 50% with inspiration. Pericardium/Pleural There is no evidence of pericardial effusion. Prior Study Comparison No significant change compared to prior study dated: 04/26/2021. Measurements 2D Linear Measurements IVSd: 1.27 0.6-0.9/0.6-1.0 cm LVIDd: 4.33 3.9-5.3/4.2-5.9 cm LVIDd Index: 2.35 2.4-3.2/2.2-3.1 cm/m2 LVIDs: 3.04 2.0-3.6 cm LVPWd: 0.99 0.7-1.1 cm LA Diam: 4.40 2.7-3.8/3.0-4.0 cm LAIDs Index: 2.39 1.5-2.3 cm/m2 LV Mass: 213.34 67-162/88-224 g LV Mass Index: 115.95 43-95/49-115 g/m2 LVOT Diam: 2.20 3.0+(-)1.3 cm 2D Systolic Function EF 4C: 48.10 >55% EF 2C: 47.40 >55% Mitral Valve MV Pk E: 0.80 MV Decel Time: 225.00 E'Lateral: 12.90 E'Medial: 7.29 E/E' Med: 10.90 E/E' Lat: 6.20 PHT: 66.00 MVA PHT: 3.33 Decel [place]: 3.54 Aortic Valve AoV Pk [place]: 0.95 AoV Mn [place]: 0.70 AoV VTI: 0.18 AoV Pk Grad: 4.00 Aov Mn Grad: 2.00 JAYSON Cont.VTI: 3.09 LVOT LVOT Pk [place]: 0.71 LVOT Mn [place]: 0.51 LVOT VTI: 0.14 LVOT Pk Grad: 2.00 LVOT Mn Grad: 1.00 LVOT Diam: 2.20 LVOT Area: 3.80 Diastolic Function MV Pk E: 0.80 E'Medial: 7.29 E/E' Med: 10.90 E' Laterial: 12.90 E/E' Lat: 6.20 Right Ventricle TAPSE (mm): 17.90 TVS' [place]: 9.25 Tricuspid Valve TR Pk [place]: 2.28 TR Pk Grad: 21.00 RA Press: 8.00 RVSP: 29.00 Great Vessels Aorta Sinus of Valsalva: 3.84 2.0-3.[address] [place]: 3.40 1.7-3.4 cm Ao Asc: 3.80 2.1-3.4 cm Updated in Other Vendor System with Status of Final Hiro Wilson MD electronically signed on 04/11/2022 10:50:19 AM with status of Final
== END ==
LOC: HO.CARD 09:27
PROVIDERS: Visit Provider Internal Medicine Cardiovascular Disease
DX: I48.0 Paroxysmal atrial fibrillation (principal); I25.110 Atherosclerotic heart disease of native coronary artery with unstable angina pectoris; I25.5 Ischemic cardiomyopathy
CPT/HCPCS: 93306

== ENCOUNTER → 2022-04-17 10:57 | Outpatient (BNVA) | payer MEDICARE, SELFPAY ==
[2022-01-17 13:22] VITALS: BP 122/70; BP 124/70
[2022-04-08 08:04] VITALS: BP 112/64; BMI 24.3
== END ==
PROVIDERS: PCP Internal Medicine; Visit Provider Internal Medicine Cardiovascular Disease
DX: I48.19 Other persistent atrial fibrillation (principal); I25.10 Atherosclerotic heart disease of native coronary artery without angina pectoris; Z79.01 Long term (current) use of anticoagulants; Z79.899 Other long term (current) drug therapy
CPT/HCPCS: 93005; 99212

== ENCOUNTER 2022-05-12 07:05 | Outpatient (REF) | payer MEDICARE, SELFPAY ==
[2022-01-17 13:22] VITALS: BP 122/70; BP 124/70
[2022-04-29 07:15] VITALS: BP 118/78; BMI 24.3
[2022-05-12 07:23] LABS: MANUAL DIFF FLAG NO
[2022-05-12 07:59] LABS: Basophils Percent Auto 0.7 % (0-2); Eosinophils Absolute Auto 0.4 X10*3/uL (0.0-0.4); Eosinophils Percent Auto 6.6 % (0-4); Hematocrit 44.7 % (42.0-52.0); Hemoglobin 14.9 g/dl (14.0-18.0); Imm Gran Abs Auto 0.01 X10*3/uL (0.00-0.03); Imm Gran Pct Auto 0.2 % (0.0-0.4); Lymphocytes Absolute Auto 1.6 X10*3/uL (1.2-4.9); Lymphocytes Percent Auto 29.9 % (20-40); Mean Corpuscular HGB Conc 33.3 g/dl (31.0-36.0); Mean Corpuscular Hemoglobin 30.4 pg (27.0-33.0); Mean Corpuscular Volume 91.2 fL (80.0-98.0); Mean Platelet Volume 10.1 fL (9.4-12.4); Monocytes Absolute Auto 0.7 X10*3/uL (0.1-1.2); Neutrophils Absolute Auto 2.7 x10*3/uL (2.0-8.3); Neutrophils Percent Auto 50.6 % (45-73); Platelet Count 181 X10*3/uL (160-400); White Blood Count 5.4 X10*3/uL (4.8-10.8)
[2022-05-12 08:07] LABS: Estimated Average Glucose 137 mg/dL; Hemoglobin A1c % 6.4 %
[2022-05-12 08:36] LABS: Alanine Aminotransferase 13 U/L (0-40); Albumin Level 3.6 g/dL (3.5-5.0); Alkaline Phosphatase 62 U/L (39-117); Anion Gap 13 (12-20); Aspartate Amino Transferase 18 U/L (5-37); Bilirubin Total 1.2 mg/dL (0.0-1.0); Blood Urea Nitrogen 16 mg/dL (9-16); Calcium 8.7 mg/dL (8.4-10.2); Carbon Dioxide 28 mmol/L (22-29); Chloride 105 mmol/L (96-108); Cholesterol 113 mg/dL; Estimated Glomerular Filt Rate > 60; Glucose Random 128 mg/dL (60-115); HDL Cholesterol 54 mg/dL; LDL Cholesterol Calculated 47 mg/dl; Potassium 4.5 mmol/L (3.3-5.1); Sodium 141 mmol/L (135-145); Total Protein 6.4 g/dL (6.5-8.0); Triglycerides 62 mg/dL
[2022-05-12 08:59] LABS: Appearance Urine CLEAR; Color Urine YELLOW; Glucose Urine UA NEG (NEG); Leukocyte Esterase Urine NEG (NEG); Nitrite Urine NEG (NEG); PH 6.5 (5.0-8.0); Urine Blood NEG (NEG); Urine Ketones NEG (NEG); Urine Protein NEG (NEG-TRACE)
[2022-05-12 09:04] LABS: Prostate Specific Antigen < 0.05 ng/mL (<0.05-4.0)
== END 2022-05-12 07:06 | disposition home or self-care (01) ==
LOC: HO.LAB 07:05
PROVIDERS: PCP Internal Medicine; Visit Provider Internal Medicine
DX: I10 Essential (primary) hypertension (principal); I25.10 Atherosclerotic heart disease of native coronary artery without angina pectoris; E80.0 Hereditary erythropoietic porphyria; I48.0 Paroxysmal atrial fibrillation; R73.01 Impaired fasting glucose; Z12.5 Encounter for screening for malignant neoplasm of prostate
CPT/HCPCS: 36415; 80053; 80061; 81003; 83036; 84153; 85025

== ENCOUNTER → 2022-06-26 13:41 | Outpatient (BNVA) | payer MEDICARE, SELFPAY ==
[2022-05-27 10:38] VITALS: BP 118/78; BMI 24.3
== END ==
PROVIDERS: PCP Internal Medicine; Referring Provider Internal Medicine; Visit Provider Internal Medicine Cardiovascular Disease
DX: I48.19 Other persistent atrial fibrillation (principal); I25.110 Atherosclerotic heart disease of native coronary artery with unstable angina pectoris
CPT/HCPCS: 93005; 99212

== ENCOUNTER 2022-11-04 07:55 | Outpatient (REF) | payer MEDICARE, SELFPAY ==
[2022-05-27 10:38] VITALS: BP 118/78; BMI 24.3
[2022-11-04 10:47] LABS: MANUAL DIFF FLAG NO
[2022-11-04 10:56] LABS: Basophils Absolute Auto 0.1 X10*3/uL (0.0-0.2); Basophils Percent Auto 1.1 % (0-2); Eosinophils Absolute Auto 0.2 X10*3/uL (0.0-0.4); Eosinophils Percent Auto 2.7 % (0-4); Hematocrit 45.8 % (42.0-52.0); Hemoglobin 15.3 g/dl (14.0-18.0); Imm Gran Abs Auto 0.01 X10*3/uL (0.00-0.03); Imm Gran Pct Auto 0.2 % (0.0-0.4); Lymphocytes Absolute Auto 1.6 X10*3/uL (1.2-4.9); Lymphocytes Percent Auto 24.7 % (20-40); Mean Corpuscular HGB Conc 33.4 g/dl (31.0-36.0); Mean Corpuscular Hemoglobin 30.4 pg (27.0-33.0); Mean Corpuscular Volume 91.1 fL (80.0-98.0); Mean Platelet Volume 10.2 fL (9.4-12.4); Monocytes Absolute Auto 0.6 X10*3/uL (0.1-1.2); Monocytes Percent Auto 9.7 % (2-11); Neutrophils Percent Auto 61.6 % (45-73); Platelet Count 239 X10*3/uL (160-400); Red Blood Count 5.03 X10*6/uL (4.60-5.80); Red Cell Distribution Width 12.8 % (11.0-16.0); White Blood Count 6.4 X10*3/uL (4.8-10.8)
[2022-11-04 11:19] LABS: Alanine Aminotransferase 14 U/L (0-40); Albumin Level 3.6 g/dL (3.5-5.0); Alkaline Phosphatase 63 U/L (39-117); Anion Gap 15 (12-20); Aspartate Amino Transferase 21 U/L (5-37); Bilirubin Total 1.4 mg/dL (0.0-1.0); Blood Urea Nitrogen 17 mg/dL (9-16); Calcium 9.4 mg/dL (8.4-10.2); Carbon Dioxide 27 mmol/L (22-29); Chloride 102 mmol/L (96-108); Cholesterol 146 mg/dL; Estimated Glomerular Filt Rate > 60; Glucose Fasting 117 mg/dL (60-99); HDL Cholesterol 47 mg/dL; LDL Cholesterol Calculated 87 mg/dl; Potassium 4.3 mmol/L (3.3-5.1); Sodium 140 mmol/L (135-145); Total Protein 6.5 g/dL (6.5-8.0); Triglycerides 63 mg/dL
[2022-11-04 11:21] LABS: Estimated Average Glucose 134 mg/dL; Hemoglobin A1c % 6.3 %
[2022-11-04 11:25] LABS: Free T4 (Free Thyroxine) 0.98 ng/dL (0.71-1.85); Thyroid Stimulating Hormone 1.64 uIU/mL (0.32-4.0)
[2022-11-04 11:28] LABS: Creatinine Urine 80.88 mg/dL; Microalbum/Creatinine Ratio Ur 8.6 ug/mg cr
== END 2022-11-04 07:56 | disposition home or self-care (01) ==
LOC: HO.10HDL 07:55
PROVIDERS: Radiology Diagnostic Radiology; Visit Provider Internal Medicine
DX: Z13.89 Encounter for screening for other disorder (principal)
CPT/HCPCS: 36415; 80053; 80061; 82043; 83036; 84439; 84443; 85025

== ENCOUNTER → 2022-12-25 10:17 | Outpatient (BNVA) | payer MEDICARE, SELFPAY ==
[2022-05-27 10:38] VITALS: BP 118/78; BMI 24.3
== END ==
PROVIDERS: PCP Internal Medicine; Visit Provider Internal Medicine Cardiovascular Disease
DX: I25.110 Atherosclerotic heart disease of native coronary artery with unstable angina pectoris (principal); I48.19 Other persistent atrial fibrillation; I10 Essential (primary) hypertension; Z95.5 Presence of coronary angioplasty implant and graft; Z98.890 Other specified postprocedural states
CPT/HCPCS: 99212

== ENCOUNTER 2023-06-16 07:30 | Outpatient (REF) | payer MEDICARE, SELFPAY ==
[2022-05-27 10:38] VITALS: BP 118/78; BMI 24.3
[2023-06-16 10:42] LABS: MANUAL DIFF FLAG NO
[2023-06-16 10:58] LABS: Basophils Absolute Auto 0.1 X10*3/uL (0.0-0.2); Basophils Percent Auto 1.5 % (0-2); Eosinophils Absolute Auto 0.2 X10*3/uL (0.0-0.4); Eosinophils Percent Auto 3.8 % (0-4); Hematocrit 46.3 % (42.0-52.0); Hemoglobin 15.3 g/dl (14.0-18.0); Imm Gran Abs Auto 0.01 X10*3/uL (0.00-0.03); Imm Gran Pct Auto 0.2 % (0.0-0.4); Lymphocytes Absolute Auto 1.8 X10*3/uL (1.2-4.9); Lymphocytes Percent Auto 33.1 % (20-40); Mean Corpuscular Hemoglobin 30.6 pg (27.0-33.0); Mean Corpuscular Volume 92.6 fL (80.0-98.0); Mean Platelet Volume 10.6 fL (9.4-12.4); Monocytes Absolute Auto 0.6 X10*3/uL (0.1-1.2); Monocytes Percent Auto 10.8 % (2-11); Neutrophils Absolute Auto 2.8 x10*3/uL (2.0-8.3); Neutrophils Percent Auto 50.6 % (45-73); Platelet Count 207 X10*3/uL (160-400); Red Cell Distribution Width 13.1 % (11.0-16.0); White Blood Count 5.5 X10*3/uL (4.8-10.8)
[2023-06-16 11:15] LABS: Alanine Aminotransferase 16 U/L (0-40); Albumin Level 3.8 g/dL (3.5-5.0); Alkaline Phosphatase 69 U/L (39-117); Anion Gap 10 (12-20); Aspartate Amino Transferase 22 U/L (5-37); Bilirubin Total 1.2 mg/dL (0.0-1.0); Blood Urea Nitrogen 14 mg/dL (9-16); Calcium 9.8 mg/dL (8.4-10.2); Carbon Dioxide 31 mmol/L (22-29); Chloride 104 mmol/L (96-108); Cholesterol 166 mg/dL (<200); Estimated Glomerular Filt Rate > 60; Glucose Random 119 mg/dL (60-115); HDL Cholesterol 58 mg/dL (>40); LDL Cholesterol Calculated 93 mg/dL (<100); Potassium 4.4 mmol/L (3.3-5.1); Sodium 141 mmol/L (135-145); Total Protein 7.1 g/dL (6.5-8.0); Triglycerides 78 mg/dL (<150)
[2023-06-16 11:22] LABS: Estimated Average Glucose 128 mg/dL; Hemoglobin A1C 170.4064 umol/L; Hemoglobin A1c % 6.1 % (<6.0)
[2023-06-16 11:31] LABS: Thyroid Stimulating Hormone 2.48 uIU/mL (0.32-4.0)
== END 2023-06-16 07:31 | disposition home or self-care (01) ==
LOC: HO.10HDL 07:30
PROVIDERS: Visit Provider Internal Medicine
DX: E78.00 Pure hypercholesterolemia, unspecified (principal); R73.01 Impaired fasting glucose; I10 Essential (primary) hypertension; I25.10 Atherosclerotic heart disease of native coronary artery without angina pectoris
CPT/HCPCS: 36415; 80053; 80061; 83036; 84443; 85025

== ENCOUNTER 2023-06-22 12:57 | Outpatient (AMB) | payer MEDICARE, SELFPAY ==
[2022-05-27 10:38] VITALS: BP 118/78; BMI 24.3
[2023-06-22 13:00] VITALS: BP 120/80; PULSE 78; BMI 23.5
--- NOTE | 2023-06-22 13:00 | A.OFFVIS_ITS ---
Intake Vital Signs 06/22/23 13:00 Height 5 ft 7 in Weight 149 lb 14.629 oz BMI 23.5 BP 120/80 Blood Pressure Location Lt brachial Position Sitting Pulse 78 Intake Visit Reasons: 6 mth f/up Intake Note: 6 month follow-up with ekg c/o fatigue has been hold the statin and is feeling better Market Research Analyst Required: No Allergies No Known Allergies Allergy (Verified 03/22/21 08:39) Medication List - Last Reconciled 06/22/23 by Hiro Wilson MD amlodipine 2.5 mg PO DAILY apixaban (Eliquis) 5 mg PO BID atorvastatin 40 mg PO BEDTIME cholecalciferol (vitamin D3) 25 mcg PO DAILY coenzyme Q10 (Co Q-10) 30 mg PO DAILY ezetimibe 10 mg PO DAILY lisinopril 10 mg PO DAILY metoprolol tartrate 25 mg PO BID HPI HPI Comments History of Present Illness Details Sherman comes for follow-up. He is accompanied by his . He says when he pushes in says he gets burning discomfort in his precordium similar to his angina. He does not get symptoms with day-to-day activity. However he says he has been getting increasing fatigue over the last few months. No clear orthopnea, PND. No leg edema, lightheadedness, syncope. Taking all his medications. No bleeding issues or neurologic events. He has discontinue statin therapy due to muscle aches. [facility] Medical History Exertional angina Ischemic cardiomyopathy NSTEMI (non-ST elevated myocardial infarction) CAD (coronary artery disease) Paroxysmal atrial fibrillation HTN (hypertension) Hyperlipidemia Surgical History Stented coronary artery Hx of cardiac cath Hx of prostatectomy History of hip replacement Family History Father Diabetes Mother No problems noted. Social History Household Members: Spouse Housing: House Do you presently have visiting nurse or other home services: No Alcohol intake: current Alcohol intake frequency: holidays/special occasions only Alcohol type: beer Patient Tobacco Use Status: Never used Tobacco Advance Directives Date on File: 03/12/21 service: No Current occupational status: retired Review of Systems Const Denies chills, Denies fatigue, Denies fever(s), Denies frequent falls, Denies weakness, Denies weight gain and Denies weight loss ENT Denies dizziness Card Denies chest pain, Denies leg edema, Denies lightheadedness, Denies palpitations, Denies dyspnea, Denies dyspnea on exertion, Denies orthopnea and Denies other (loss of consciousness) Resp Denies cough, Denies dyspnea and Denies dyspnea on exertion GI Denies hematochezia and Denies change in stool character Musc Denies abnormal gait, Denies muscle weakness, Denies numbness, Denies radiating pain into limb and Denies tingling Neuro Denies abnormal gait, Denies dizziness, Denies frequent falls, Denies numbness, Denies tingling and Denies weakness Endo Denies fatigue and Denies palpitations Physical Exam Vital Signs: Last Vital Signs Pulse 78 06/22/23 13:00 BP 120/80 06/22/23 13:00 BMI result Body Mass Index 23.5 Const General: cooperative, comfortable, no acute distress, alert and awake Nutritional Appearance: average body habitus Orientation/consciousness: patient oriented x3 Limitations: no limitations Neck Neck: Yes trachea midline, Yes supple and Yes no JVD Resp Effort & Inspection: normal respiratory effort Auscultation: clear to auscultation bilaterally Cardio Jugular venous distension: no JVD Palpation: normal PMI Rate: regular rate Rhythm: abnormal rhythm irregularly irregular Heart sounds: S1 normal heart sound present and S2 normal heart sound present GI Auscultation: normal bowel sounds Skin General skin exam: no rashes or lesions noted Neuro General: patient oriented x3 and no focal motor deficits Extrem General: Yes no clubbing, cyanosis or edema Psych Appearance: grossly normal Office Procedures EKG Details: EKG shows atrial fibrillation with T-wave inversion inferior leads [id number], Complete Assessment & Plan Assessment & Plan (1) Persistent atrial fibrillation: Code(s): I48.19 - Other persistent atrial fibrillation Plan: Persistent atrial fibrillation with adequate rate control. Despite rate control is having symptoms of exertional fatigue and shortness of breath which held most likely due to loss of AV synchrony. We discussed about management of this. He has moderate left atrial enlargement and has had persistent atrial fibrillation for some time. We discussed difficulty in pursuing rhythm control approach. However he is quite symptomatic with reduction is exercise capacity. Will start him on Multaq 400 mg b.i.d. and reduce his metoprolol dose by half once he starts taking his Multaq followed by synchronized cardioversion in 2 days. Continued use of oral anticoagulation was discussed. We discussed the procedure of synchronized cardioversion including risk, benefits, alternatives and possible outcomes. He understands agrees. Further treatment based on rhythm management and symptom improvement or not. This was discussed with him. He understands and agrees. (2) CAD (coronary artery disease): Comment: inferior wall ND, status post stent Code(s): I25.10 - Atherosclerotic heart disease of [place] coronary artery without angina pectoris Qualifiers: Associated angina: with unstable angina Coronary Disease-Associated Artery/Lesion type: unspecified vessel or lesion type [place] vs. transplanted heart: [place] heart Qualified Code(s): I25.110 - Atherosclerotic heart disease of [place] coronary artery with unstable angina pectoris Plan: CAD with some symptoms suggestive angina with over exertion. Will start him on isosorbide 30 mg daily. Continue other antianginal therapy. Currently on full oral anticoagulation with Eliquis. Continue the same. He is off statin therapy due to muscle aches. Check lipid panel in 2 months. Will discussed PCSK9 inhibitor therapy if he has significantly elevated LDL cholesterol at that point time. Follow up in the clinic in 1 months time, sooner p.r.n.. Thank you for allowing me to partake in his care Medications: New isosorbide mononitrate ER 30 mg PO DAILY 30 tabs 5RF dronedarone (Multaq) must administer with a meal/food 400 mg PO BID 60 tabs 1RF Discontinued atorvastatin Discontinued Reason: Patient no longer taking 40 mg PO BEDTIME 90 tabs 3RF Coding Level of Care Code Est Pt Level 4 (87808) Diagnoses Persistent atrial fibrillation I48.19 CAD (coronary artery disease) I25.110 Associated angina: with unstable angina Coronary Disease-Associated Artery/Lesion type: unspecified vessel or lesion type [place] vs. transplanted heart: [place] heart CPT Codes EKG - CPT: 00133-[id number], Complete ([id number])
== END 2023-06-22 13:44 | disposition home or self-care (01) ==
PROVIDERS: PCP Internal Medicine; Referring Provider Internal Medicine; Visit Provider Internal Medicine Cardiovascular Disease
DX: I48.19 Other persistent atrial fibrillation (principal); I25.110 Atherosclerotic heart disease of native coronary artery with unstable angina pectoris
CPT/HCPCS: 93010; 99214

== ENCOUNTER → 2023-06-22 12:57 | Outpatient (BNVA) | payer MEDICARE, SELFPAY ==
[2022-05-27 10:38] VITALS: BP 118/78; BMI 24.3
== END ==
PROVIDERS: PCP Internal Medicine; Referring Provider Internal Medicine; Visit Provider Internal Medicine Cardiovascular Disease
DX: I48.19 Other persistent atrial fibrillation (principal); I25.110 Atherosclerotic heart disease of native coronary artery with unstable angina pectoris
CPT/HCPCS: 93005; 99212

== ENCOUNTER 2023-06-26 11:28 | Day surgery (SDC) | payer MEDICARE, SELFPAY ==
[2022-05-27 10:38] VITALS: BP 118/78; BMI 24.3
[2023-06-26 07:03] VITALS: BMI 26.2
[2023-06-26 11:32] VITALS: BP 154/83; PULSE 68; RESP 20; TEMP 36.1; O2SAT 98
[2023-06-26] MEDS: Lactated Ringers 1,000 ML 50 ML IVCONT (12:03)
--- NOTE | 2023-06-26 12:20 | HO.ANESPROP2 ---
HPI - Anesthesia Eval Consult details Narrative: 83 M for cardioversion CAD s/p stent x2. Angina with extertion patient has been having increased fatigue , attributted to a fib PMFSH Active Problems Active Problems: All Active Problems (Updated 06/26/23 @ 11:58 by Monse Haas RN) Persistent atrial fibrillation (Acute) CAD (coronary artery disease) (Acute) HTN (hypertension) (Acute) Hyperlipidemia (Acute) Past Medical History Medical History Paroxysmal atrial fibrillation Atrial fibrillation status post cardioversion History of cardioversion Exertional angina Ischemic cardiomyopathy NSTEMI (non-ST elevated myocardial infarction) CAD (coronary artery disease) HTN (hypertension) Hyperlipidemia Functional capacity: independent ambulation Family History Family History Father Diabetes Mother No problems noted. Family history of problems with anesthesia: No Surgical History Surgical History Stented coronary artery Hx of cardiac cath Hx of prostatectomy History of hip replacement History of Problems with Anesthesia: No Social History Household Members: Spouse Housing: House Do you presently have visiting nurse or other home services: No Alcohol intake: current Alcohol intake frequency: holidays/special occasions only Alcohol type: beer Patient Tobacco Use Status: Never used Tobacco Smoked in Last 30 Days: No Use of substances other than those prescribed or required for medical reasons: No Advance Directives: No Advance Directives Information Provided: No Advance Directives Date on File: 03/12/21 service: No Current occupational status: retired Meds Allergies Allergy/AdvReac Type Severity Reaction Status Date / Time No Known Allergies Allergy Verified 03/22/21 08:39 Active Medications: Current Medications Lactated Ringer's (Lr) 1,000 mls @ 50 mls/hr IVCONT .Q20H JUAN ANTONIO Last Admin: 06/26/23 12:03 Dose: 50 mls/hr Home Medications Medication Instructions Recorded Confirmed Last Taken Type cholecalciferol (vitamin D3) 25 25 mcg PO DAILY 03/12/21 06/26/23 06/23/23 History mcg (1,000 unit) tablet coenzyme Q10 30 mg capsule (Co 30 mg PO DAILY 03/12/21 06/26/23 06/23/23 History Q-10) apixaban 5 mg tablet (Eliquis) 5 mg PO BID 03/22/21 06/26/23 06/26/23 History lisinopril 10 mg tablet 10 mg PO DAILY 08/28/21 06/26/23 06/25/23 History metoprolol tartrate 50 mg tablet 25 mg PO BID 06/26/22 06/26/23 06/26/23 History Exam Exam Date and Time: June 26, 2023 1220 Height,Weight and Vital Signs: Height 5 ft 3.5 in Weight 68.039 kg Last Vital Signs Temp 97 F 06/26/23 11:32 Pulse 68 06/26/23 11:32 Resp 20 06/26/23 11:32 BP 154/83 H 06/26/23 11:32 Pulse Ox 98 06/26/23 11:32 O2 Del Method Room Air 06/26/23 11:32 Narrative Narrative: Procedure Date: 04/10/2022 Procedure Type: Transthoracic Echocardiogram Conclusions: - 1. Low normal LV systolic function with LVEF of 50-55% 2. Moderately dilated left atrium 3. Mild aortic and mitral regurgitation 4. Mildly dilated ascending aorta 5. Normal RV systolic pressure 6. No pericardial effusion Airway Mallampati Class: III Denture: Upper and Lower Loose/Missing/Broken Teeth: Yes Assessment and Plan Assessment Anesthesia Assessment: Anesthesia Plan Discussed and Chart Reviewed Final Anesthetic Review Family History of Problems with Anesthesia: No History of Problems with Anesthesia: No NPO: Yes ASA Class: IV Final Preanesthetic Review: Meds/Allgs Chart Reviewed, Consent Obtained/Reviewed and Anes Risks/Benef Reviewed Patient Risk: High Procedure Risk: Intermediate Anesthetic Plan Anesthetic Plan: MAC: and Agree w/ Assess. and Plan Disposition: Standard PACU
--- NOTE | 2023-06-26 12:43 | MHC.SHP ---
Pre-Procedural Eval Section A Date of Service: 06/26/23 The patient is an INPATIENT: No Changes since office visit: Yes Patient answered all questions; No Cold of Flu in the past 2 weeks, No New Medical Problems and No Changes in Medication The History & Physical has been completed within 30 days and I have reviewed it.: Yes Section B Chief Complaint: Other persistent atrial fibrillation Allergies: Allergies Allergy/AdvReac Type Severity Reaction Status Date / Time No Known Allergies Allergy Verified 03/22/21 08:39 Plan I have reviewed the history and physical and performed a pertinent physical examination on my patient. No changes have occurred unless specified. Time Spent With Patient Time: Total time managing care of this patient today ____ minutes.
--- NOTE | 2023-06-26 12:57 | ECG_ITS ---
Test Reason : s/p cardioversion Blood Pressure : / mmHG Vent. Rate : 062 BPM Atrial Rate : 326 BPM P-R Int : 000 ms QRS Dur : 116 ms QT Int : 470 ms P-R-T Axes : 000 -15 007 degrees QTc Int : 477 ms Atrial flutter with variable A-V block Abnormal ECG When compared with ECG of 12-MAR-2021 12:18, Atrial flutter has replaced Sinus rhythm Criteria for Septal infarct are no longer Present Nonspecific T wave abnormality has replaced inverted T waves in Inferior leads Nonspecific T wave abnormality, worse in Lateral leads Referred By: Hiro Wilson Electronically Signed By:PRUDENCIO OSORIO
--- NOTE | 2023-06-26 12:59 | HO.CARDIVERS ---
Cardioversion Procedure Note Cardioversion Date of Procedure: Today Ordering Provider: Myself Performing Provider: Myself Indication for Procedure: Symptomatic persistent atrial fibrillation Pre-Op Diagnosis: Same Post-Op Diagnosis: Normal sinus rhythm Performed with Transesophageal Echo: No History: See my note Consent: Verbal and Written consent was obtained from the patient before starting and after confirming oral anticoagulation use. The patient was made aware of the risk of synchronized cardioversion including benefits and risks Procedure: After consent obtained, cardioversion pads were attached in anteroposterior configuration and the patient was sedated by the anesthesia team. Once adequate sedation achieved, patient was delivered 200 joules of biphasic synchronized energy in anteroposterior configuration. Complications: None Impression: Successful conversion to sinus rhythm Recommendations: 1. 12 lead EKG 2. Continue Multaq and full oral anticoagulation 3. Follow up in the office in 4 weeks time
[2023-06-26 13:05] VITALS: BP 115/78; PULSE 64; RESP 15; TEMP 36.4; O2SAT 99
[2023-06-26 13:10] VITALS: BP 115/81; PULSE 61; RESP 15; O2SAT 99
[2023-06-26 13:15] VITALS: BP 120/82; PULSE 74; RESP 15; O2SAT 99
[2023-06-26 13:20] VITALS: BP 129/86; PULSE 69; RESP 15; O2SAT 98
[2023-06-26 13:35] VITALS: BP 148/84; PULSE 62; RESP 16; TEMP 36.4; O2SAT 98
== END 2023-06-26 13:59 | disposition home or self-care (01) ==
PROVIDERS: PCP Internal Medicine; Visit Provider Internal Medicine Cardiovascular Disease
PROC: 5A2204Z Restoration of Cardiac Rhythm, Single (ICD-10-PCS; principal; 2023-06-26 12:30)
DX: I48.19 Other persistent atrial fibrillation (principal); I48.0 Paroxysmal atrial fibrillation; Z79.01 Long term (current) use of anticoagulants
CPT/HCPCS: 92960; 93005

== ENCOUNTER → 2023-06-26 11:28 | Outpatient (BNV) | payer MEDICARE, SELFPAY ==
[2022-05-27 10:38] VITALS: BP 118/78; BMI 24.3
== END ==
PROVIDERS: PCP Internal Medicine; Visit Provider Internal Medicine Cardiovascular Disease
DX: I48.19 Other persistent atrial fibrillation (principal)
CPT/HCPCS: 92960

== ENCOUNTER 2023-08-07 00:52 | Emergency (ER) | payer MEDICARE, SELFPAY ==
[2022-05-27 10:38] VITALS: BP 118/78; BMI 24.3
[2023-08-07] VITALS (7 sets, daily range): BP systolic 148–178; BP diastolic 93–117; PULSE 80–90; RESP 12–18; TEMP 36.4–36.5; O2SAT 95–99; BMI 22.4
--- NOTE | 2023-08-07 | ECG_ITS ---
Test Reason : dizziness Blood Pressure : / mmHG Vent. Rate : 071 BPM Atrial Rate : 357 BPM P-R Int : 000 ms QRS Dur : 098 ms QT Int : 398 ms P-R-T Axes : 000 -18 002 degrees QTc Int : 432 ms Atrial flutter with variable A-V block Abnormal ECG When compared with ECG of 26-JUN-2023 13:09, No significant change was found Referred By: Kateryna Romero Electronically Signed By:JOANNE SETHI MD
--- NOTE | ~2023-08-07 | CT_ITS ---
EXAMINATION: CT head/brain wo IV con CLINICAL INFORMATION: Reason for Exam ams COMPARISON: None. TECHNIQUE: Contiguous axial imaging was performed from the skull base to vertex without intravenous contrast. Sagittal and coronal reformatted images were obtained. This CT examination was performed using dose optimization techniques as appropriate, variously including the following: * Automated exposure control * Adjustment of mA and/or kV according to patient size (this includes techniques or standardized protocols for targeted exams where dose is matched to indication/reason for exam; i.e. extremities or head) Use of iterative reconstruction technique DLP: 631.21 mGy-cm FINDINGS: No acute osseous or soft tissue abnormality. The mastoid air cells and visualized portions of the paranasal sinuses are well aerated. There is no evidence of acute intracranial hemorrhage or territorial infarction. No abnormal mass effect or midline shift is seen. [place] to white matter differentiation is well preserved. No extra-axial fluid collections are identified. No hydrocephalus. No significant volume loss. Patchy periventricular and deep white matter hypoattenuation is consistent with moderate small vessel ischemic changes. CT/CT head/brain wo IV con IMPRESSION: No acute intracranial abnormality including hemorrhage, mass effect, hydrocephalus, or acute territorial edematous infarction. .
--- NOTE | 2023-08-07 01:28 | MHC.EDTECH ---
Patient was biba from home ,pt is alert and oriented ,Pt use the urinal ,vitals taken ,pt was change into hospital gown ,ekg taken and was read by Provider ,pt was hooked up to engine monitor ,blood drawn ,urine sample collected ,also flu and covid swab all sent to lab ,Pt comfortable at this time ,no apparent distress noted ,Pt at bedside ,Call driver within Pt reach .
[2023-08-07 01:30] LABS: MANUAL DIFF FLAG NO
[2023-08-07 01:31] LABS: Basophils Absolute Auto 0.1 X10*3/uL (0.0-0.2); Basophils Percent Auto 1.2 % (0-2); Eosinophils Absolute Auto 0.2 X10*3/uL (0.0-0.4); Hematocrit 47.3 % (42.0-52.0); Hemoglobin 16.1 g/dl (14.0-18.0); Imm Gran Abs Auto 0.01 X10*3/uL (0.00-0.03); Imm Gran Pct Auto 0.2 % (0.0-0.4); Lymphocytes Absolute Auto 1.5 X10*3/uL (1.2-4.9); Lymphocytes Percent Auto 24.9 % (20-40); Mean Corpuscular Hemoglobin 30.7 pg (27.0-33.0); Mean Corpuscular Volume 90.3 fL (80.0-98.0); Mean Platelet Volume 9.9 fL (9.4-12.4); Monocytes Absolute Auto 0.6 X10*3/uL (0.1-1.2); Monocytes Percent Auto 9.6 % (2-11); Neutrophils Absolute Auto 3.6 x10*3/uL (2.0-8.3); Neutrophils Percent Auto 60.1 % (45-73); Platelet Count 180 X10*3/uL (160-400); Red Blood Count 5.24 X10*6/uL (4.60-5.80); Red Cell Distribution Width 12.8 % (11.0-16.0); White Blood Count 5.9 X10*3/uL (4.8-10.8)
[2023-08-07 01:34] LABS: Appearance Urine Clear; Color Urine Yellow; Glucose Urine UA Negative (Negative); Leukocyte Esterase Urine Negative (Negative); Nitrite Urine Negative (Negative); PH 7.5 (5.0-9.0); Urine Blood Negative (Negative); Urine Ketones Negative (Negative); Urine Protein Negative (Neg-Trace)
[2023-08-07 01:39] LABS: Bacteria Urine None Seen (None Seen); Hyaline Casts Urine 0-2 /LPF (0-2); RBC Urine 0-2 /HPF (0-2); Squamous Epithelial Cell Urine 0-2 /HPF (0-2); WBC Urine 0-5 /HPF (0-5)
[2023-08-07 01:43] LABS: INTERNATIONAL NORM RATIO 1.3 (0.9-1.1); Prothrombin Time 16.3 SEC (11.1-13.3)
[2023-08-07 01:51] LABS: COVID-19 Test Negative (Negative); IDNOW Serial# 08D9AD1C; IDNOW Serial# BCCEAD1C; Influenza A Negative (Negative); Influenza B2 Negative (Negative)
[2023-08-07 01:53] LABS: Alanine Aminotransferase 16 U/L (0-40); Albumin Level 3.9 g/dL (3.5-5.0); Alkaline Phosphatase 64 U/L (39-117); Anion Gap 12 (12-20); Aspartate Amino Transferase 23 U/L (5-37); Bilirubin Total 0.7 mg/dL (0.0-1.0); Blood Urea Nitrogen 15 mg/dL (9-16); Calcium 9.7 mg/dL (8.4-10.2); Carbon Dioxide 27 mmol/L (22-29); Chloride 107 mmol/L (96-108); Creatinine Clr Calc Pharmacy 63.4; Estimated Glomerular Filt Rate > 60; Glucose Random 141 mg/dL (60-115); Sodium 142 mmol/L (135-145); Total Protein 7.2 g/dL (6.5-8.0)
--- NOTE | 2023-08-07 02:09 | ED_ITS ---
HPI - Dizziness General Chief Complaint: Dizziness Stated Complaint: Dizziness Time Seen by Provider: 08/07/23 01:01 History of Present Illness HPI Narrative: patient is 83 years old with a history of paroxysmal AFib currently on Eliquis. positive history of coronary artery disease status post stents. Patient was getting up suddenly when he felt a spinning sensation that was sick strain. Associated with some nausea improved with staying still. Symptom has since resolved. Patient denies any chest pain denies any diaphoresis denies any focal weakness. He denies any trauma to his head. No pacemakers. History of arrhythmia history of being on amiodarone history of being on amlodipine. history of high cholesterol Related Data Home Medications Medication Instructions Recorded Confirmed cholecalciferol (vitamin D3) 25 25 mcg PO DAILY 03/12/21 06/26/23 mcg (1,000 unit) tablet coenzyme Q10 30 mg capsule (Co 30 mg PO DAILY 03/12/21 06/26/23 Q-10) apixaban 5 mg tablet (Eliquis) 5 mg PO BID 03/22/21 06/26/23 lisinopril 10 mg tablet 10 mg PO DAILY 08/28/21 06/26/23 metoprolol tartrate 50 mg tablet 25 mg PO BID 06/26/22 06/26/23 Previous Rx's Medication Instructions Recorded ezetimibe 10 mg tablet 10 mg PO DAILY #90 tabs 11/20/22 amlodipine 2.5 mg tablet 2.5 mg PO DAILY #90 tabs 05/18/23 isosorbide mononitrate 30 mg 30 mg PO DAILY #30 tabs 06/22/23 tablet,extended release 24 hr amiodarone 200 mg tablet 200 mg PO DAILY #30 tabs 06/26/23 amiodarone 400 mg tablet 400 mg PO BID #30 tabs 06/26/23 Allergies Allergy/AdvReac Type Severity Reaction Status Date / Time No Known Allergies Allergy Verified 03/22/21 08:39 Review of Systems 2 Review of Systems: no fever no chills, no chest pain or shortness of breath Yes all other systems are reviewed and are negative [facility] Past Medical History Medical History Paroxysmal atrial fibrillation Atrial fibrillation status post cardioversion History of cardioversion Exertional angina Ischemic cardiomyopathy NSTEMI (non-ST elevated myocardial infarction) CAD (coronary artery disease) HTN (hypertension) Hyperlipidemia Surgical History Stented coronary artery Hx of cardiac cath Hx of prostatectomy History of hip replacement Family History Family History Father Diabetes Mother No problems noted. Social History Social History Household Members: Spouse Housing: House Do you presently have visiting nurse or other home services: No Alcohol intake: current Alcohol intake frequency: holidays/special occasions only Alcohol type: beer Patient Tobacco Use Status: Never used Tobacco Smoked in Last 30 Days: No Use of substances other than those prescribed or required for medical reasons: No Advance Directives: No Advance Directives Information Provided: No Advance Directives Date on File: 03/12/21 service: No Current occupational status: retired Physical Exam 2 Vital Signs: Vital Signs: Last Vital Signs Temp 97.6 F 08/07/23 01:57 Pulse 88 08/07/23 02:14 Resp 15 08/07/23 01:57 BP 158/97 H 08/07/23 02:14 Pulse Ox 95 08/07/23 01:57 O2 Del Method Room Air 08/07/23 01:57 BMI result Body Mass Index 22.4 Appearance: Alert. Oriented X3. No acute distress. Eyes: Pupils equal, round and reactive to light. ENT: Pharynx normal. Neck: Normal inspection. Neck supple. No lymph nodes noted. No crepitus CVS: Normal heart rate and rhythm. Pulses normal. Normal S1 and S2 Respiratory: No respiratory distress. Breath sounds normal. No Wheezing. No rales Abdomen: Soft and nontender. No rigidity. No distention. good BS x4 Skin: Skin warm and dry. Normal skin color. Normal skin turgor. Extremities: No lower extremity edema. Neurovascular intact to all extremities. No Lacerations. No Rash Neuro: Oriented X 3. No motor deficit. No sensory deficit. Moving all extermities. No slurred speech. Cranial nerves 2-12 intact. Rapid alternating movement intact. NIH stroke scale was 0. Medical Decision Making Medical Decision Making MDM Narrative: Question if patient's symptoms secondary to a peripheral vertigo. Patient has no chest pain or shortness of breath no focal weakness no nausea no vomiting. Has a history of being on Eliquis for paroxysmal AFib. A CT scan of the head was ordered. Patient's labs are ordered. Will monitor very carefully currently symptom free will get at least 2 sets of enzymes and get orthostatics. My interpretation of patient's EKG showed an atrial fibrillation pattern heart rate is 70 QRS QTC within normal limits is no acute ST segment elevation it is grossly unchanged from previous EKG. Two sets of cardiac enzymes are negative. Patient has these episodes of spinning only when he moves his head quickly. Question if it is peripheral vertigo at this time patient symptoms seems to have resolved. Patient's did not have a positive Hallpike on exam. CT scan of the head was done as patient is on blood thinners. It was grossly negative. Explained to patient the need to move slowly and to closely follow up. He states understanding. Will discharge patient home Differential Diagnosis Differential Diagnoses: The differential diagnosis associated with the presentation includes peripheral vertigo, intracranial bleed, ACS Admission/Observation Consideration of admission/observation: Escalation of care including admission/observation considered patient well appearing no distress he is 83 years old does not want to stay in the hospital . understood the risk and benefit.will discharge patient home Lab Data MDM Lab Attestation statement: I reviewed the patient's lab results. 08/07/23 01:26 08/07/23 01:26 Labs: Lab Results 08/07/23 08/07/23 08/07/23 Range/Units 01:25 01:26 01:27 WBC 5.9 (4.8-10.8) X10*3/uL RBC 5.24 (4.60-5.80) X10*6/uL Hgb 16.1 (14.0-18.0) g/dl Hct 47.3 (42.0-52.0) % MCV 90.3 (80.0-98.0) fL MCH 30.7 (27.0-33.0) pg MCHC 34.0 (31.0-36.0) g/dl RDW 12.8 (11.0-16.0) % Plt Count 180 (160-400) X10*3/uL MPV 9.9 (9.4-12.4) fL Immature Gran % (Auto) 0.2 (0.0-0.4) % Neut % (Auto) 60.1 (45-73) % Lymph % (Auto) 24.9 (20-40) % Harmon % (Auto) 9.6 (2-11) % Eos % (Auto) 4.0 (0-4) % Baso % (Auto) 1.2 (0-2) % Lymph # (Auto) 1.5 (1.2-4.9) X10*3/uL Harmon # (Auto) 0.6 (0.1-1.2) X10*3/uL Eos # (Auto) 0.2 (0.0-0.4) X10*3/uL Baso # (Auto) 0.1 (0.0-0.2) X10*3/uL Abs Immat Gran (auto) 0.01 (0.00-0.03) X10*3/uL Absolute Neuts (auto) 3.6 (2.0-8.3) x10*3/uL Absolute Nucleated RBC 0.000 (0.0-0.012) X10*3/uL Nucleated RBC % (auto) 0.0 (0.0-0.2) /100WBC PT 16.3 H (11.1-13.3) SEC INR 1.3 H (0.9-1.1) Sodium 142 (135-145) mmol/L Potassium 4.0 (3.3-5.1) mmol/L Chloride 107 (96-108) mmol/L Carbon Dioxide 27 (22-29) mmol/L Anion Gap 12 (12-20) BUN 15 (9-16) mg/dL Creatinine 0.83 (0.5-1.4) mg/dL Estim Creat Clear Calc 63.4 Estimated GFR > 60 Random Glucose 141 H (60-115) mg/dL Calcium 9.7 (8.4-10.2) mg/dL Total Bilirubin 0.7 (0.0-1.0) mg/dL AST 23 (5-37) U/L ALT 16 (0-40) U/L Alkaline Phosphatase 64 (39-117) U/L Troponin I High Sens 7.3 (<3.5-35.0) ng/L Total Protein 7.2 (6.5-8.0) g/dL Albumin 3.9 (3.5-5.0) g/dL Urine Color Yellow Urine Appearance Clear Urine pH 7.5 (5.0-9.0) Ur Specific [place] 1.010 (1.005-1.025) Urine Protein Negative (Neg-Trace) mg/dL Urine Glucose (UA) Negative (Negative) mg/dL Urine Ketones Negative (Negative) mg/dL Urine Blood Negative (Negative) Urine Nitrite Negative (Negative) Ur Leukocyte Esterase Negative (Negative) Urine RBC 0-2 (0-2) /HPF Urine WBC 0-5 (0-5) /HPF Ur Squamous Epith Cells 0-2 (0-2) /HPF Urine Bacteria None Seen (None Seen) Hyaline Casts 0-2 (0-2) /LPF COVID-19 (FER) Negative (Negative) COVID-19 Clin Com See Note Influenza Type A (SHANON) Negative (Negative) Influenza Type B (SHANON) Negative (Negative) Influenza A & B Note See Note 08/07/23 Range/Units 03:27 WBC (4.8-10.8) X10*3/uL RBC (4.60-5.80) X10*6/uL Hgb (14.0-18.0) g/dl Hct (42.0-52.0) % MCV (80.0-98.0) fL MCH (27.0-33.0) pg MCHC (31.0-36.0) g/dl RDW (11.0-16.0) % Plt Count (160-400) X10*3/uL MPV (9.4-12.4) fL Immature Gran % (Auto) (0.0-0.4) % Neut % (Auto) (45-73) % Lymph % (Auto) (20-40) % Harmon % (Auto) (2-11) % Eos % (Auto) (0-4) % Baso % (Auto) (0-2) % Lymph # (Auto) (1.2-4.9) X10*3/uL [place]on # (Auto) (0.1-1.2) X10*3/uL Eos # (Auto) (0.0-0.4) X10*3/uL Baso # (Auto) (0.0-0.2) X10*3/uL Abs Immat Gran (auto) (0.00-0.03) X10*3/uL Absolute Neuts (auto) (2.0-8.3) x10*3/uL Absolute Nucleated RBC (0.0-0.012) X10*3/uL Nucleated RBC % (auto) (0.0-0.2) /100WBC PT (11.1-13.3) SEC INR (0.9-1.1) Sodium (135-145) mmol/L Potassium (3.3-5.1) mmol/L Chloride (96-108) mmol/L Carbon Dioxide (22-29) mmol/L Anion Gap (12-20) BUN (9-16) mg/dL Creatinine (0.5-1.4) mg/dL Estim Creat Clear Calc Estimated GFR Random Glucose (60-115) mg/dL Calcium (8.4-10.2) mg/dL Total Bilirubin (0.0-1.0) mg/dL AST (5-37) U/L ALT (0-40) U/L Alkaline Phosphatase (39-117) U/L Troponin I High Sens 7.1 (<3.5-35.0) ng/L Total Protein (6.5-8.0) g/dL Albumin (3.5-5.0) g/dL Urine Color Urine Appearance Urine pH (5.0-9.0) Ur Specific [place] (1.005-1.025) Urine Protein (Neg-Trace) mg/dL Urine Glucose (UA) (Negative) mg/dL Urine Ketones (Negative) mg/dL Urine Blood (Negative) Urine Nitrite (Negative) Ur Leukocyte Esterase (Negative) Urine RBC (0-2) /HPF Urine WBC (0-5) /HPF Ur Squamous Epith Cells (0-2) /HPF Urine Bacteria (None Seen) Hyaline Casts (0-2) /LPF COVID-19 (FER) (Negative) COVID-19 Clin Com Influenza Type A (SHANON) (Negative) Influenza Type B (SHANON) (Negative) Influenza A & B Note Independent Interpretation I performed an independent interpretation of an: EKG ( Atrial fibrillation heart rate is 70 QRS QTC within normal limits there is no acute ST segment elevation) Radiology Impression Discussion of test interpretation with radiology: I have reviewed the radiologist's reading. Independent Historian Clinical information obtained from an independent historian. History obtained from or confirmed by: Spouse External Record Review External record reviewed: Office record previous cardiology record reviewed Prescription Management will prescribe Antivert for symptom support Chronic Conditions Patient?s care impacted by: Hypertension history of coronary artery disease status post stents. History of high cholesterol Discharge Plan Discharge Clinical Impression: Persistent atrial fibrillation, Benign paroxysmal positional vertigo Patient Disposition: Home, Self-Care Instructions: Benign Paroxysmal Positional Vertigo (ED) Additional Instructions: please move very slowly. Please be extremely careful. Falling could cause intracranial bleeding If he hit to head. Please be very careful. Prescriptions: No Action ezetimibe 10 mg tablet 10 mg PO DAILY Qty: 90 3RF Rx Instructions: Cholesterol medication amlodipine 2.5 mg tablet 2.5 mg PO DAILY Qty: 90 3RF amiodarone 400 mg tablet 400 mg PO BID Qty: 30 0RF amiodarone 200 mg tablet 200 mg PO DAILY Qty: 30 2RF Rx Instructions: After 2 weeks of loading coenzyme Q10 [Co Q-10] 30 mg Capsule 30 mg PO DAILY cholecalciferol (vitamin D3) 25 mcg (1,000 unit) Tablet 25 mcg PO DAILY Eliquis 5 mg tablet 5 mg PO BID lisinopril 10 mg tablet 10 mg PO DAILY metoprolol tartrate 50 mg tablet 25 mg PO BID isosorbide mononitrate 30 mg tablet extended release 24 hr 30 mg PO DAILY Qty: 30 5RF Referrals: Kameron Sky MD [Primary Care Provider] - 08/10/23
[2023-08-07 02:19] LABS: Troponin-I High Sensitivity 7.3 ng/L (<3.5-35.0)
[2023-08-07 03:59] LABS: Troponin-I High Sensitivity 7.1 ng/L (<3.5-35.0)
== END 2023-08-07 04:49 | disposition home or self-care (01) ==
PROVIDERS: Emergency Provider Emergency Medicine Emergency Medical Services; PCP Internal Medicine
DX: I48.19 Other persistent atrial fibrillation (principal); H81.10 Benign paroxysmal vertigo, unspecified ear; R11.2 Nausea with vomiting, unspecified; Z79.01 Long term (current) use of anticoagulants; Z11.52 Encounter for screening for COVID-19; Z20.822 Contact with and (suspected) exposure to COVID-19; Z79.899 Other long term (current) drug therapy
CPT/HCPCS: 36415; 70450; 80053; 81001; 84484; 85025; 85610; 87502; 87635; 93005; 99284; 99285

== ENCOUNTER 2023-09-30 08:23 | Outpatient (REF) | payer MEDICARE, SELFPAY ==
[2022-05-27 10:38] VITALS: BP 118/78; BMI 24.3
[2023-09-30 09:43] LABS: Cholesterol 163 mg/dL (<200); HDL Cholesterol 57 mg/dL (>40); LDL Cholesterol Calculated 93 mg/dL (<100); Triglycerides 67 mg/dL (<150)
== END 2023-09-30 08:24 | disposition home or self-care (01) ==
LOC: HO.LAB 08:23
PROVIDERS: Visit Provider Internal Medicine Cardiovascular Disease
DX: I48.0 Paroxysmal atrial fibrillation (principal)
CPT/HCPCS: 36415; 80061

== ENCOUNTER 2023-10-05 12:26 | Outpatient (AMB) | payer MEDICARE, SELFPAY ==
[2022-05-27 10:38] VITALS: BP 118/78; BMI 24.3
--- NOTE | 2023-10-05 12:32 | MHC.OFFVIS ---
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 He continues to have symptoms of fatigue and tiredness throughout the day. He did not want to go back on amiodarone because of his prior side effect with thyroid dysfunction. He remains on metoprolol for rate control. Occasionally takes half a metoprolol when he has rapid heart rate. Otherwise no bleeding issues or neurologic events. No clear orthopnea, PND, leg edema. No anginal symptoms. In July was in the emergency room with vertigo symptoms. No recurrent vertigo symptoms. [facility] Medical History (Updated 10/05/23 @ 13:04 by Hiro Wilson MD) Paroxysmal atrial fibrillation Atrial fibrillation status post cardioversion History of cardioversion Exertional angina Ischemic cardiomyopathy NSTEMI (non-ST elevated myocardial infarction) CAD (coronary artery disease) HTN (hypertension) Hyperlipidemia Surgical History Stented coronary artery Hx of cardiac cath Hx of prostatectomy History of hip replacement Family History Father Diabetes Mother No problems noted. Social History Household Members: Spouse Housing: House Do you presently have visiting nurse or other home services: No Alcohol intake: current Alcohol intake frequency: holidays/special occasions only Alcohol type: beer Patient Tobacco Use Status: Never used Tobacco Advance Directives Date on File: 03/12/21 service: No Current occupational status: retired Review of Systems Const Denies chills, Denies fatigue, Denies fever(s), Denies frequent falls, Denies weakness, Denies weight gain and Denies weight loss ENT Denies dizziness Card Denies chest pain, Denies leg edema, Denies lightheadedness, Denies palpitations, Denies dyspnea, Denies dyspnea on exertion, Denies orthopnea and Denies other (loss of consciousness) Resp Denies cough, Denies dyspnea and Denies dyspnea on exertion GI Denies hematochezia and Denies change in stool character Musc Denies abnormal gait, Denies muscle weakness, Denies numbness, Denies radiating pain into limb and Denies tingling Neuro Denies abnormal gait, Denies dizziness, Denies frequent falls, Denies numbness, Denies tingling and Denies weakness Endo Denies fatigue and Denies palpitations Physical Exam Vital Signs: Last Vital Signs Pulse 84 10/05/23 12:33 BP 110/68 10/05/23 12:33 BMI result Body Mass Index 21.8 Const General: cooperative, comfortable, no acute distress, alert and awake Nutritional Appearance: average body habitus Orientation/consciousness: patient oriented x3 Limitations: no limitations Neck Neck: Yes trachea midline, Yes supple and Yes no JVD Resp Effort & Inspection: normal respiratory effort Auscultation: clear to auscultation bilaterally Cardio Jugular venous distension: no JVD Palpation: normal PMI Rate: regular rate Rhythm: abnormal rhythm irregularly irregular Heart sounds: S1 normal heart sound present and S2 normal heart sound present GI Auscultation: normal bowel sounds Skin General skin exam: no rashes or lesions noted Neuro General: patient oriented x3 and no focal motor deficits Extrem General: Yes no clubbing, cyanosis or edema Psych Appearance: grossly normal Assessment & Plan Assessment & Plan (1) Persistent atrial fibrillation: Code(s): I48.19 - Other persistent atrial fibrillation Plan: Persistent atrial fibrillation in this elderly gentleman I think causing his symptoms related to loss of AV synchrony. However he does not want to go back on amiodarone therapy due to thyroid dysfunction. This is reasonable. I discussed with him the pathophysiology of atrial fibrillation and cause of his symptoms due to loss of AV synchrony. He understands them with. We discussed that potentially using an alternative antiarrhythmic agent such as sotalol can be pursued but will require inpatient initiation. They want to think about it. He wants to start increasing his activity level. He will call me in 2 months to see if he remains persistently symptomatic. We discussed longer he has persistent atrial fibrillation, it will be more difficult to pursue rhythm control approach. Both patient and patient's understand. Continue full oral anticoagulation with Eliquis. Continue current rate control with metoprolol. (2) CAD (coronary artery disease): Comment: inferior wall PA, status post stent Code(s): I25.10 - Atherosclerotic heart disease of [place] coronary artery without angina pectoris Qualifiers: Associated angina: with unstable angina Coronary Disease-Associated Artery/Lesion type: unspecified vessel or lesion type [place] vs. transplanted heart: [place] heart Qualified Code(s): I25.110 - Atherosclerotic heart disease of [place] coronary artery with unstable angina pectoris Plan: CAD status post stenting to the RCA territory. No recurrent symptoms of angina at current point time. Continue current medical therapy with isosorbide, metoprolol and amlodipine. Continue aggressive blood pressure control. Continue full oral anticoagulation with Eliquis and would avoid antiplatelet agent to reduce bleeding risk. His LDL is not well optimized and discussed about starting statin therapy although he is not currently interested due to muscle aches. Will follow up in the clinic in 2 months time, sooner p.r.n.. Thank you for allowing me to partake in his care Coding Level of Care Code Est Pt Level 4 (69530) Diagnoses Persistent atrial fibrillation I48.19 CAD (coronary artery disease) I25.110 Associated angina: with unstable angina Coronary Disease-Associated Artery/Lesion type: unspecified vessel or lesion type [place] vs. transplanted heart: [place] heart
[2023-10-05 12:33] VITALS: BP 110/68; PULSE 84; BMI 21.8
== END 2023-10-05 13:08 | disposition home or self-care (01) ==
PROVIDERS: PCP Internal Medicine; Visit Provider Internal Medicine Cardiovascular Disease
DX: I48.19 Other persistent atrial fibrillation (principal); I25.110 Atherosclerotic heart disease of native coronary artery with unstable angina pectoris
CPT/HCPCS: 99214

== ENCOUNTER → 2023-10-05 12:26 | Outpatient (BNVA) | payer MEDICARE, SELFPAY ==
[2022-05-27 10:38] VITALS: BP 118/78; BMI 24.3
== END ==
PROVIDERS: PCP Internal Medicine; Visit Provider Internal Medicine Cardiovascular Disease
DX: I48.19 Other persistent atrial fibrillation (principal); I25.110 Atherosclerotic heart disease of native coronary artery with unstable angina pectoris
CPT/HCPCS: 99212

== ENCOUNTER 2023-10-14 12:02 | Outpatient (REF) | payer MEDICARE, SELFPAY ==
[2022-05-27 10:38] VITALS: BP 118/78; BMI 24.3
[2023-10-14 12:35] LABS: MANUAL DIFF FLAG NO
[2023-10-14 12:58] LABS: Basophils Absolute Auto 0.1 X10*3/uL (0.0-0.2); Basophils Percent Auto 0.8 % (0-2); Eosinophils Absolute Auto 0.2 X10*3/uL (0.0-0.4); Eosinophils Percent Auto 2.4 % (0-4); Hematocrit 48.1 % (42.0-52.0); Hemoglobin 15.9 g/dl (14.0-18.0); Imm Gran Abs Auto 0.03 X10*3/uL (0.00-0.03); Imm Gran Pct Auto 0.5 % (0.0-0.4); Lymphocytes Absolute Auto 1.4 X10*3/uL (1.2-4.9); Lymphocytes Percent Auto 20.5 % (20-40); Mean Corpuscular HGB Conc 33.1 g/dl (31.0-36.0); Mean Corpuscular Hemoglobin 31.4 pg (27.0-33.0); Mean Corpuscular Volume 94.9 fL (80.0-98.0); Mean Platelet Volume 9.9 fL (9.4-12.4); Monocytes Absolute Auto 0.6 X10*3/uL (0.1-1.2); Monocytes Percent Auto 8.4 % (2-11); Neutrophils Absolute Auto 4.4 x10*3/uL (2.0-8.3); Neutrophils Percent Auto 67.4 % (45-73); Platelet Count 194 X10*3/uL (160-400); Red Blood Count 5.07 X10*6/uL (4.60-5.80); Red Cell Distribution Width 12.9 % (11.0-16.0); White Blood Count 6.6 X10*3/uL (4.8-10.8)
[2023-10-14 13:59] LABS: Appearance Urine Clear; Color Urine Yellow; Glucose Urine UA Negative (Negative); Leukocyte Esterase Urine Negative (Negative); Nitrite Urine Negative (Negative); PH 7.5 (5.0-9.0); Urine Blood Negative (Negative); Urine Ketones Negative (Negative); Urine Protein Negative (Neg-Trace)
[2023-10-14 14:08] LABS: Alanine Aminotransferase 16 U/L (0-40); Albumin Level 3.7 g/dL (3.5-5.0); Alkaline Phosphatase 59 U/L (39-117); Anion Gap 10 (12-20); Aspartate Amino Transferase 20 U/L (5-37); Bilirubin Total 1.2 mg/dL (0.0-1.0); Blood Urea Nitrogen 18 mg/dL (9-16); Calcium 9.7 mg/dL (8.4-10.2); Carbon Dioxide 31 mmol/L (22-29); Chloride 105 mmol/L (96-108); Estimated Glomerular Filt Rate > 60; Glucose Random 165 mg/dL (60-115); Potassium 4.4 mmol/L (3.3-5.1); Sodium 142 mmol/L (135-145); Total Protein 6.9 g/dL (6.5-8.0)
[2023-10-14 14:26] LABS: Free T4 (Free Thyroxine) 1.06 ng/dL (0.71-1.85); Thyroid Stimulating Hormone 1.15 uIU/mL (0.32-4.0)
== END 2023-10-14 12:03 | disposition home or self-care (01) ==
LOC: HO.LAB 12:02
PROVIDERS: PCP Internal Medicine; Visit Provider Internal Medicine
DX: I10 Essential (primary) hypertension (principal); R35.0 Frequency of micturition
CPT/HCPCS: 36415; 80053; 81003; 84439; 84443; 85025; 87086

== ENCOUNTER 2023-10-19 14:56 | Inpatient (IN) | payer MEDICARE, SELFPAY ==
[2022-05-27 10:38] VITALS: BP 118/78; BMI 24.3
--- NOTE | 2023-10-19 | ECG_ITS ---
Test Reason : CHECK PROLONG QT Blood Pressure : / mmHG Vent. Rate : 090 BPM Atrial Rate : 000 BPM P-R Int : 000 ms QRS Dur : 100 ms QT Int : 388 ms P-R-T Axes : 000 -09 015 degrees QTc Int : 474 ms Atrial fibrillation Septal infarct Abnormal ECG When compared with ECG of 07-AUG-2023 01:10, No significant changes seen Referred By: Generic ED Physician Electronically Signed By:Ethan Roberts
--- NOTE | ~2023-10-19 | XR_ITS ---
EXAMINATION: XR CHEST CLINICAL INFORMATION: 10/03/2018 COMPARISON: None available. TECHNIQUE: Frontal view of the chest was obtained. FINDINGS: No significant abnormality is noted involving the heart, lungs, mediastinum, bony thorax or soft tissues. XR/XR chest 1V IMPRESSION: Unremarkable examination.
--- NOTE | ~2023-10-19 | CT_ITS ---
EXAMINATION: CT head/brain wo IV con CLINICAL INFORMATION: Reason for Exam recent psychosis COMPARISON: CT head 08/07/2023 TECHNIQUE: Contiguous axial imaging was performed from the skull base to vertex without intravenous contrast. Sagittal and coronal reformatted images were obtained. This CT examination was performed using dose optimization techniques as appropriate, variously including the following: * Automated exposure control * Adjustment of mA and/or kV according to patient size (this includes techniques or standardized protocols for targeted exams where dose is matched to indication/reason for exam; i.e. extremities or head) Use of iterative reconstruction technique DLP: 808 mGy-cm FINDINGS: There is no evidence of acute intracranial hemorrhage. No mass-effect or ventricular shift is noted. No acute, territorial loss of clark-white differentiation. Generalized cerebral volume loss with associated ventricular and sulcal prominencePeriventricular and subcortical white matter hypodensity is nonspecific but likely represents chronic microvascular ischemic change. Intracranial atherosclerotic calcification is noted. No depressed calvarial fracture. The paranasal sinuses are well-aerated. The mastoid air cells are clear. Small subcutaneous lipomatous lesion along the left dorsal soft tissues. Bilateral intraocular lens replacements. CT/CT head/brain wo IV con IMPRESSION: No acute intracranial hemorrhage or territorial loss of clark-white differentiation.
[2023-10-19 15:12] VITALS: BP 133/71; BP 155/104; PULSE 73; PULSE 80; RESP 14; TEMP 36.8; O2SAT 98; O2SAT 99; BMI 20.7
--- NOTE | 2023-10-19 15:19 | ED_ITS ---
HPI - Psych General Chief Complaint: Psychiatric Symptoms Stated Complaint: MHE SECTION 12 PER EMS Time Seen by Provider: 10/19/23 15:14 Source: patient, EMS, RN notes reviewed and old records reviewed Mode of arrival: EMS History of Present Illness HPI Narrative: 83-year-old male with a past medical history of proximal AFib, angina, ischemic cardiomyopathy, NSTEMI, CAD, HTN, HLD, presenting to the ED via EMS on section 12 by [facility] for increasing paranoid delusions, memory loss, auditory and visual hallucinations. Per section 12 patient hallucinating 75 people on his front porch, saw a Ericson, and was found by family waving a gun at closet door believing somebody was inside of it. Patient reports compliance with home medications. Patient himself denies auditory and visual hallucinations, SI/HI, injury/trauma or fall. States there is nothing wrong with me MD complaint: hallucinations Related Data Home Medications Medication Instructions Recorded Confirmed cholecalciferol (vitamin D3) 25 25 mcg PO DAILY 03/12/21 10/19/23 mcg (1,000 unit) tablet coenzyme Q10 30 mg capsule (Co 30 mg PO DAILY 03/12/21 10/19/23 Q-10) apixaban 5 mg tablet (Eliquis) 5 mg PO BID 03/22/21 10/19/23 lisinopril 10 mg tablet 10 mg PO DAILY 08/28/21 10/19/23 metoprolol tartrate 50 mg tablet 25 mg PO BID 06/26/22 10/19/23 famotidine 40 mg tablet (Pepcid) 40 mg PO MOWESA 10/19/23 10/19/23 quetiapine 25 mg tablet 25 mg PO BEDTIME 10/19/23 10/19/23 Previous Rx's Medication Instructions Recorded amlodipine 2.5 mg tablet 2.5 mg PO DAILY #90 tabs 05/18/23 isosorbide mononitrate 30 mg 30 mg PO DAILY #30 tabs 06/22/23 tablet,extended release 24 hr Allergies Allergy/AdvReac Type Severity Reaction Status Date / Time No Known Allergies Allergy Verified 10/19/23 15:28 Review of Systems 2 Review of Systems: Constitutional: No Fever, No Chills, No Fatigue, No Malaise ENT/Mouth:No Ear Pain, No sore throat, No Rhinorrhea, No Swallowing Difficulty Cardiovascular: No Chest Pain, No SOB, No Palpitations Respiratory: No Cough, No Dyspnea Gastrointestinal: No Nausea, No Vomiting, No Diarrhea, No Constipation, No Abdominal pain Musculoskeletal: No joint pain, No Myalgias, No Joint Swelling Skin: No Skin Lesions, No rash Neuro: No Weakness Psych: No Anxiety/Panic, No Depression, No SI/HI, +AH/VH, No Social Issues Yes all other systems are reviewed and are negative Constitutional: Constitutional: Reports as per [facility] Past Medical History Attestation statement: The following information was validated with the patient. Source: old records reviewed Medical History Paroxysmal atrial fibrillation Atrial fibrillation status post cardioversion History of cardioversion Exertional angina Ischemic cardiomyopathy NSTEMI (non-ST elevated myocardial infarction) CAD (coronary artery disease) HTN (hypertension) Hyperlipidemia Surgical History Stented coronary artery Hx of cardiac cath Hx of prostatectomy History of hip replacement Family History Family History Father Diabetes Mother No problems noted. Social History Social History Household Members: Spouse Housing: House Do you presently have visiting nurse or other home services: No Alcohol intake: current Alcohol intake frequency: holidays/special occasions only Alcohol type: beer Patient Tobacco Use Status: Never used Tobacco Smoked in Last 30 Days: No Use of substances other than those prescribed or required for medical reasons: No Advance Directives: No Advance Directives Information Provided: No Advance Directives Date on File: 03/12/21 service: No Current occupational status: retired Physical Exam 2 Vital Signs: Vital Signs: Last Vital Signs Temp 98.3 F 10/19/23 15:12 Pulse 80 10/19/23 15:12 Resp 14 10/19/23 15:20 BP 155/104 H 10/19/23 15:12 Pulse Ox 98 10/19/23 15:12 O2 Del Method Room Air 10/19/23 15:12 BMI result Body Mass Index 20.7 Const: General: cooperative, no acute distress, alert and awake O rientation/consciousness: patient oriented x3 Limitations: no limitations HEENT: Head: Yes normal to inspection and Yes atraumatic Ears: hearing grossly normal bilaterally General nose exam: Normal external nose present Face and sinus: Yes normal facial exam Eyes: General: appearance normal, both eyes and all related structures EOM: EOMs intact bilaterally Neck: Neck: Yes normal visual inspection and Yes no meningeal signs Resp: Effort & Inspection: normal respiratory effort and no respiratory distress Auscultation: clear to auscultation bilaterally Cardio: Rate: regular rate Heart sounds: S1 normal heart sound present and S2 normal heart sound present GI: Inspection: Yes normal to inspection Palpation (GI): Soft to palpation, nontender, no guarding and not rigid Skin: Rashes: no rashes Wounds: no wounds Neuro: General: patient oriented x3, tone normal, moves all extremities, no meningeal signs and CN's II-XI intact bilaterally Cranial nerves: Yes CN's II-XII intact bilaterally Extrem: General: Yes normal to inspection Psych: Attitude: cooperative Thought content: suicidality, no homicidality, Paranoid delusions present and Hallucination(s) present auditory and visual Course Course Course Narrative: -1634--labs reassuring. UA negative. Tox screen negative. Physician observation initiated at 1635 as patient needs more time for CARE team/bedsearch. ED care transferred to JEFERSON Fish Medical Decision Making Medical Decision Making [facility] Narrative: 83-year-old male with a past medical history of proximal AFib, angina, ischemic cardiomyopathy, NSTEMI, CAD, HTN, HLD, presenting to the ED via EMS on section 12 by [facility] for increasing paranoid delusions, memory loss, auditory and visual hallucinations. On exam hypertensive, NAD, nontoxic appearing, physical exam as noted above. Concern for new onset dementia with paranoid delusions rule out metabolic/infectious etiologies.. Rule out organic causes. Brain MRI from 10/17/2023 showing no evidence of acute intracranial abnormality. Plan: Labs, UA, tox screen, CARE team consult Please refer to course for remaining clinical decision making, interpretation of labs/imaging results, and discussions with consultants and/or family members. Differential Diagnosis Differential Diagnoses: The differential diagnosis associated with the presentation includes As above Admission/Observation Consideration of admission/observation: Escalation of care including admission/observation considered Consult Healthcare Provider Management of the patient was discussed with: Behavioral Health Provider Lab Data [facility] Lab Attestation statement: I reviewed the patient's lab results. 10/19/23 16:01 10/19/23 16:01 Labs: Lab Results 10/19/23 10/19/23 Range/Units 15:20 16:01 WBC 6.3 (4.8-10.8) X10*3/uL RBC 5.19 (4.60-5.80) X10*6/uL Hgb 16.2 (14.0-18.0) g/dl Hct 47.1 (42.0-52.0) % MCV 90.8 (80.0-98.0) fL MCH 31.2 (27.0-33.0) pg MCHC 34.4 (31.0-36.0) g/dl RDW 12.6 (11.0-16.0) % Plt Count 192 (160-400) X10*3/uL MPV 9.7 (9.4-12.4) fL Immature Gran % (Auto) 0.3 (0.0-0.4) % Neut % (Auto) 72.4 (45-73) % Lymph % (Auto) 16.3 L (20-40) % [place] % (Auto) 8.7 (2-11) % Eos % (Auto) 1.7 (0-4) % Baso % (Auto) 0.6 (0-2) % Lymph # (Auto) 1.0 L (1.2-4.9) X10*3/uL [place] # (Auto) 0.6 (0.1-1.2) X10*3/uL Eos # (Auto) 0.1 (0.0-0.4) X10*3/uL Baso # (Auto) 0.0 (0.0-0.2) X10*3/uL Abs Immat Gran (auto) 0.02 (0.00-0.03) X10*3/uL Absolute Neuts (auto) 4.6 (2.0-8.3) x10*3/uL Absolute Nucleated RBC 0.000 (0.0-0.012) X10*3/uL Nucleated RBC % (auto) 0.0 (0.0-0.2) /100WBC Sodium 144 (135-145) mmol/L Potassium 4.4 (3.3-5.1) mmol/L Chloride 106 (96-108) mmol/L Carbon Dioxide 29 (22-29) mmol/L Anion Gap 13 (12-20) BUN 20 H (9-16) mg/dL Creatinine 0.99 (0.5-1.4) mg/dL Estim Creat Clear Calc 48.9 Estimated GFR > 60 Random Glucose 121 H (60-115) mg/dL Calcium 9.6 (8.4-10.2) mg/dL Magnesium 1.9 (1.6-2.6) mg/dL Total Bilirubin 1.2 H (0.0-1.0) mg/dL AST 21 (5-37) U/L ALT 15 (0-40) U/L Alkaline Phosphatase 56 (39-117) U/L Total Protein 6.7 (6.5-8.0) g/dL Albumin 3.7 (3.5-5.0) g/dL Urine Color Yellow Urine Appearance Clear Urine pH 5.5 (5.0-9.0) Ur Specific [place] 1.020 (1.005-1.025) Urine Protein Negative (Neg-Trace) mg/dL Urine Glucose (UA) Negative (Negative) mg/dL Urine Ketones Negative (Negative) mg/dL Urine Blood Negative (Negative) Urine Nitrite Negative (Negative) Ur Leukocyte Esterase Negative (Negative) Urine Opiates Screen Not Detected (Not Detect) Urine Fentanyl Screen Not Detected (Not Detect) Ur Barbiturates Screen Not Detected (Not Detect) Ur Phencyclidine Scrn Not Detected (Not Detect) Ur Amphetamines Screen Not Detected (Not Detect) U Benzodiazepines Scrn Not Detected (Not Detect) Urine Cocaine Screen Not Detected (Not Detect) U Marijuana (THC) Screen Not Detected (Not Detect) Ethyl Alcohol < 10 mg/dL COVID-19 (FER) Negative (Negative) COVID-19 Clin Com See Note Radiology Impression Discussion of test interpretation with radiology: I have reviewed the radiologist's reading. Independent Historian Clinical information obtained from an independent historian. History obtained from or confirmed by: EMS External Record Review External record reviewed: Inpatient record, Office record, Outpatient record, Prior outpatient labs, Prior outpatient radiology, Primary care record and Outside ED record Tests considered The following testing was considered but not selected: As above Chronic Conditions Patient?s care impacted by: Hypertension and Other Discharge Plan Discharge Clinical Impression: Paranoid delusion Patient Disposition: Still a Patient Prescriptions: No Action amlodipine 2.5 mg tablet 2.5 mg PO DAILY Qty: 90 3RF coenzyme Q10 [Co Q-10] 30 mg Capsule 30 mg PO DAILY cholecalciferol (vitamin D3) 25 mcg (1,000 unit) Tablet 25 mcg PO DAILY quetiapine 25 mg Tablet 25 mg PO BEDTIME famotidine [Pepcid] 40 mg Tablet 40 mg PO MOWESA Eliquis 5 mg tablet 5 mg PO BID lisinopril 10 mg tablet 10 mg PO DAILY metoprolol tartrate 50 mg tablet 25 mg PO BID isosorbide mononitrate 30 mg tablet extended release 24 hr 30 mg PO DAILY Qty: 30 5RF Interventions: Mclennan-Suicide Risk Severity Scale Last Done: 10/19/23 15:16
[2023-10-19 15:20] VITALS: RESP 14
[2023-10-19 15:32] LABS: Appearance Urine Clear; Color Urine Yellow; Glucose Urine UA Negative (Negative); Leukocyte Esterase Urine Negative (Negative); Nitrite Urine Negative (Negative); PH 5.5 (5.0-9.0); Urine Blood Negative (Negative); Urine Ketones Negative (Negative); Urine Protein Negative (Neg-Trace)
[2023-10-19 15:37] LABS: Amphetamine Screen Urine Not Detected (Not Detect); Barbiturates, Urine Not Detected (Not Detect); Benzodiazepines Screen Urine Not Detected (Not Detect); Cannabinoid Screen Urine Not Detected (Not Detect); Cocaine Screen Urine Not Detected (Not Detect); Fentanyl, urine Not Detected (Not Detect); Opiate Screen Urine Not Detected (Not Detect); Phencyclidine Screen Urine Not Detected (Not Detect)
[2023-10-19 15:46] LABS: COVID-19 Test Negative (Negative); IDNOW Serial# 08D9AD1C
[2023-10-19 16:04] LABS: MANUAL DIFF FLAG NO
[2023-10-19 16:06] LABS: Basophils Percent Auto 0.6 % (0-2); Eosinophils Absolute Auto 0.1 X10*3/uL (0.0-0.4); Eosinophils Percent Auto 1.7 % (0-4); Hematocrit 47.1 % (42.0-52.0); Hemoglobin 16.2 g/dl (14.0-18.0); Imm Gran Abs Auto 0.02 X10*3/uL (0.00-0.03); Imm Gran Pct Auto 0.3 % (0.0-0.4); Lymphocytes Percent Auto 16.3 % (20-40); Mean Corpuscular HGB Conc 34.4 g/dl (31.0-36.0); Mean Corpuscular Hemoglobin 31.2 pg (27.0-33.0); Mean Corpuscular Volume 90.8 fL (80.0-98.0); Mean Platelet Volume 9.7 fL (9.4-12.4); Monocytes Absolute Auto 0.6 X10*3/uL (0.1-1.2); Monocytes Percent Auto 8.7 % (2-11); Neutrophils Absolute Auto 4.6 x10*3/uL (2.0-8.3); Neutrophils Percent Auto 72.4 % (45-73); Platelet Count 192 X10*3/uL (160-400); Red Blood Count 5.19 X10*6/uL (4.60-5.80); Red Cell Distribution Width 12.6 % (11.0-16.0); White Blood Count 6.3 X10*3/uL (4.8-10.8)
--- NOTE | 2023-10-19 16:18 | PC.NURSE ---
Spoke with patients who brought pt briefs and dentures. Pt became upset when visited and stated I hope you don't bring our son in here . states she is worried about him due to his recent actions
[2023-10-19 16:20] LABS: Alanine Aminotransferase 15 U/L (0-40); Albumin Level 3.7 g/dL (3.5-5.0); Alkaline Phosphatase 56 U/L (39-117); Anion Gap 13 (12-20); Aspartate Amino Transferase 21 U/L (5-37); Bilirubin Total 1.2 mg/dL (0.0-1.0); Blood Urea Nitrogen 20 mg/dL (9-16); Calcium 9.6 mg/dL (8.4-10.2); Carbon Dioxide 29 mmol/L (22-29); Chloride 106 mmol/L (96-108); Creatinine Clr Calc Pharmacy 48.9; Estimated Glomerular Filt Rate > 60; Ethanol < 10 mg/dL; Glucose Random 121 mg/dL (60-115); Magnesium 1.9 mg/dL (1.6-2.6); Potassium 4.4 mmol/L (3.3-5.1); Sodium 144 mmol/L (135-145); Total Protein 6.7 g/dL (6.5-8.0)
[2023-10-19] MEDS: QUEtiapine Fumarate 25 MG TABLET PO (18:15)
[2023-10-20 00:47] VITALS: BP 155/105; PULSE 84; RESP 16; TEMP 36.4; O2SAT 96
[2023-10-20] MEDS: lisinopriL 10 MG TABLET PO ×2 (01:09→08:58)
--- NOTE | 2023-10-20 01:10 | PC.NURSE ---
Boy Fish NP, can give blood pressure medication unscheduled due to patient's blood pressure being elevated at this time
[2023-10-20 05:22] VITALS: BP 172/115; PULSE 86; RESP 18; TEMP 36.4; O2SAT 98
[2023-10-20] MEDS: amLODIPine Besylate 5 MG TABLET PO (05:30)
--- NOTE | 2023-10-20 05:33 | PC.NURSE ---
PT OOB to the bathroom. Morning vitals taken. PT bp elvate 170s/115s. Notified provided. New orders placed. Administered PT as per NOV.
--- NOTE | 2023-10-20 07:38 | PC.NURSE ---
Assumed care of this pt at 0700. Pt alert, oriented to self, he denies SI/HI/AH/VH. States my only concern is when am I getting out of here . Pt sitting in the common area at this time. No behavioral concerns.
[2023-10-20 08:34] VITALS: BP 125/72; PULSE 76; RESP 16; TEMP 36.1; O2SAT 96
[2023-10-20] MEDS: amLODIPine Besylate 2.5 MG TABLET PO (08:58)
[2023-10-20] MEDS: Apixaban 5 MG TABLET PO ×2 (08:58→20:18)
[2023-10-20] MEDS: Isosorbide Mononitrate 30 MG TAB.ER.24H PO (08:58)
[2023-10-20] MEDS: Cholecalciferol (Vitamin D3) 25 MCG TABLET PO (08:59)
[2023-10-20] MEDS: Metoprolol Tartrate 25 MG TABLET PO ×2 (08:59→20:18)
--- NOTE | 2023-10-20 10:38 | PC.NURSE ---
Pt reports seeing someone go into his room and is laying on his bed. He pointed at the blanket on his bed and stated see them they are laying right there . Staff clarified and reassured him that it was a blanket, he stated oh ok . Pt refused breakfast, compliant with taking his med. His called for update, pt got upset when he was told, stated I don't want to hear it she left me here for . Pt currently sitting in the chair outside of his room, no behavioral concerns at this time.
[2023-10-20 14:03] VITALS: BP 148/76; PULSE 80; RESP 18; TEMP 36.4; O2SAT 94
--- NOTE | 2023-10-20 16:12 | P.HPPS_ITS ---
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 The patient does not have prior psychiatric history. According to the crisis assessment, the patient was brought on a Section 12 from his home after his family noticed that he had been more forgetful in the last weeks, he reported visual hallucinations of people inside his home, paranoia, and persecutory delusions. According to the crisis assessment, the patient was seen in his home with a gun pointing to a closet stating that there was someone there. His son removed all the weapons of the home. Also, the patient nearly put his hand inside of the garbage disposal stating that there was someone hiding inside. On interview, the patient reported that he has never had visual hallucinations that he should he saw the people in his house but he minimized the event. He adamantly denies suicidal or homicidal thoughts and he is able to contract for safety. He understood mckeon warning and he signed himself into the hospital. He denies prior medical or psychiatric conditions. He admitted sporadic short-term memory loss. Past Psychiatric History: Denies Medical Evaluation Reviewed: Yes [facility] Medical History Paroxysmal atrial fibrillation Atrial fibrillation status post cardioversion History of cardioversion Exertional angina Ischemic cardiomyopathy NSTEMI (non-ST elevated myocardial infarction) CAD (coronary artery disease) HTN (hypertension) Hyperlipidemia Surgical History Stented coronary artery Hx of cardiac cath Hx of prostatectomy History of hip replacement Family History: Denies Social History: The patient was born and raised in [place], he had a normal childhood attended school. 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 He has very good social support provided by his who lives with him and his son who is very involved in his care. Substance History: Denies Trauma History: Denies Diagnostics Vital Signs (24Hr): Vital Signs - 24 hr 10/20/23 00:47 10/20/23 05:22 10/20/23 08:34 Temperature 97.6 F 97.5 F 97 F Pulse Rate 84 86 76 Respiratory Rate 16 18 16 Blood Pressure 155/105 H 172/115 H 125/72 Pulse Oximetry 96 98 96 Oxygen Delivery Method Room Air Room Air Room Air 10/20/23 14:03 Temperature 97.6 F Pulse Rate 80 Respiratory Rate 18 Blood Pressure 148/76 H Pulse Oximetry 94 Oxygen Delivery Method Room Air BMI result Body Mass Index 20.7 Labs 10/19/23 16:01 10/19/23 16:01 Labs: Laboratory Results - last 48 hr 10/19/23 10/19/23 15:20 16:01 WBC 6.3 RBC 5.19 Hgb 16.2 Hct 47.1 MCV 90.8 MCH 31.2 MCHC 34.4 RDW 12.6 Plt Count 192 MPV 9.7 Immature Gran % (Auto) 0.3 Neut % (Auto) 72.4 Lymph % (Auto) 16.3 L [place] % (Auto) 8.7 Eos % (Auto) 1.7 Baso % (Auto) 0.6 Lymph # (Auto) 1.0 L [place] # (Auto) 0.6 Eos # (Auto) 0.1 Baso # (Auto) 0.0 Abs Immat Gran (auto) 0.02 Absolute Neuts (auto) 4.6 Absolute Nucleated RBC 0.000 Nucleated RBC % (auto) 0.0 Sodium 144 Potassium 4.4 Chloride 106 Carbon Dioxide 29 Anion Gap 13 BUN 20 H Creatinine 0.99 Estim Creat Clear Calc 48.9 Estimated GFR > 60 Random Glucose 121 H Calcium 9.6 Magnesium 1.9 Total Bilirubin 1.2 H AST 21 ALT 15 Alkaline Phosphatase 56 Total Protein 6.7 Albumin 3.7 Urine Color Yellow Urine Appearance Clear Urine pH 5.5 Ur Specific [place] 1.020 Urine Protein Negative Urine Glucose (UA) Negative Urine Ketones Negative Urine Blood Negative Urine Nitrite Negative Ur Leukocyte Esterase Negative Urine Opiates Screen Not Detected Urine Fentanyl Screen Not Detected Ur Barbiturates Screen Not Detected Ur Phencyclidine Scrn Not Detected Ur Amphetamines Screen Not Detected U Benzodiazepines Scrn Not Detected Urine Cocaine Screen Not Detected U Marijuana (THC) Screen Not Detected Ethyl Alcohol < 10 COVID-19 (FER) Negative COVID-19 Clin Com See Note Meds/Allergies Meds Home Medications Medication Instructions Recorded Confirmed Type cholecalciferol (vitamin D3) 25 25 mcg PO DAILY 03/12/21 10/19/23 History mcg (1,000 unit) tablet coenzyme Q10 30 mg capsule (Co 30 mg PO DAILY 03/12/21 10/19/23 History Q-10) apixaban 5 mg tablet (Eliquis) 5 mg PO BID 03/22/21 10/19/23 History lisinopril 10 mg tablet 10 mg PO DAILY 08/28/21 10/19/23 History metoprolol tartrate 50 mg tablet 25 mg PO BID 06/26/22 10/19/23 History famotidine 40 mg tablet (Pepcid) 40 mg PO MOWESA 10/19/23 10/19/23 History quetiapine 25 mg tablet 25 mg PO BEDTIME 10/19/23 10/19/23 History Allergies Allergies Allergy/AdvReac Type Severity Reaction Status Date / Time No Known Allergies Allergy Verified 10/19/23 15:28 Mental Status Exam Mental Status Exam Patient Appearance: Appropriate Patient Orientation: Person and Situation Level of Consciousness: Awake and Appropriate Patient Behavior: Guarded and Passive Mood Description: Withdrawn Affect Description: Constricted Patient Cognition Impaired: Yes Ability to Follow Directions: Good Speech Pattern: Clear Hallucinations: Auditory and Visual Delusions: Paranoid Ideation and Ideas of Reference Thought Process: Distracted and Slowed Thinking Thought Content: positive for [place] and positive for Circumstantial Judgement: Fair Assessment & Plan Assessment & Plan (1) Persistent atrial fibrillation: Status: Acute Code(s): I48.19 - Other persistent atrial fibrillation (2) CAD (coronary artery disease): Status: Acute Qualifiers: Associated angina: with unstable angina Coronary Disease-Associated Artery/Lesion type: unspecified vessel or lesion type [place] vs. transplanted heart: [place] heart Qualified Code(s): I25.110 - Atherosclerotic heart disease of [place] coronary artery with unstable angina pectoris Code(s): I25.10 - Atherosclerotic heart disease of [place] coronary artery without angina pectoris (3) HTN (hypertension): Status: Acute Code(s): I10 - Essential (primary) hypertension (4) Hyperlipidemia: Status: Acute Code(s): E78.5 - Hyperlipidemia, unspecified (5) Psychosis: Status: Acute Code(s): F29 - Unspecified psychosis not due to a substance or known physiological condition Plan The patient is an 83-year-old male with a prior history of CAD, HTN, atrial fibrillation and other medical comorbidities with no prior psychiatric illness referred to the emergency room for the onset of psychosis. Also there is no report of a possible cognitive impairment. At the moment of the interview the patient denies new symptoms he is pleasant cooperative and he is willing to follow treatment. Plan 1. Gather collateral information. The patient is willing to give us permission to talk with his and family. 2. Continue with regular medical treatment. 3. Continue medical workout. 4. Reassessment with results. 5. 15 minute checks. Patient educated on: diagnosis Reason for continued inpatient stay Substantial Risk for: inability to function, rapid decompensation and med/psych decompensation Statement Statement: I have reviewed the history and physical and performed a pertinent examination on my patient. No changes have occurred unless specified. If the History and Physical was not performed prior to admission, the Hospitalist's service will be consulted for completing the admission physical. Time Spent With Patient Time: Total time managing care of this patient today __45__ minutes.
--- NOTE | 2023-10-20 17:03 | PC.ADMIT ---
Patient transported to unit via WC from POD at 1330. CV signed on unit. Brought to ED on Sec 12 due to hallucintations, delusions and memory loss. Per patient's symptoms have been worsening over past two weeks. Patient presents as alert and oriented to person, place and time. Lacking insight into situation. Admitting diagnosis is Unspecified Schizophrenia and other psychotic disorder. Upon arrival on unit patient was taken into exam room where he was weighed and skin was checked in presence of two RN's. Dressed in [facility] until clothes could be inventoried. Appears well groomed, makes good eye contact and speaks clearly. Upon answering questions it becomes obvious that patient is experiencing confusion. Patient was oriented to unit and participated in admission process. , Manjula, was notified of his admission to unit. Visitation policy was explained and appointment made for her to visit tomorrow. PMH includes AFIB, Angina, Cardiomyopathy, NSTEMI, CAD, HTN and HLD. Patient seen Dr. Lea. Observed eating with peets and interacting appropriately.
[2023-10-20] MEDS: QUEtiapine Fumarate 25 MG TABLET PO (20:18)
[2023-10-20 20:20] VITALS: BP 103/66; PULSE 82; RESP 18; TEMP 36.4; O2SAT 94
[2023-10-20] MEDS: Milk of Magnesia 30 ML ORAL.SUSP PO (21:41)
[2023-10-21 06:00] VITALS: BP 134/90; PULSE 59; RESP 18; TEMP 36.1; O2SAT 96
[2023-10-21] MEDS: Isosorbide Mononitrate 30 MG TAB.ER.24H PO (08:34)
[2023-10-21] MEDS: lisinopriL 10 MG TABLET PO (08:34)
[2023-10-21] MEDS: Metoprolol Tartrate 25 MG TABLET PO ×2 (08:34→19:51)
[2023-10-21] MEDS: Cholecalciferol (Vitamin D3) 25 MCG TABLET PO (08:35)
[2023-10-21] MEDS: amLODIPine Besylate 2.5 MG TABLET PO (08:35)
[2023-10-21] MEDS: Apixaban 5 MG TABLET PO ×2 (08:35→19:52)
[2023-10-21 08:58] LABS: Alanine Aminotransferase 15 U/L (0-40); Albumin Level 3.6 g/dL (3.5-5.0); Alkaline Phosphatase 56 U/L (39-117); Anion Gap 14 (12-20); Aspartate Amino Transferase 29 U/L (5-37); Bilirubin Total 1.5 mg/dL (0.0-1.0); Blood Urea Nitrogen 26 mg/dL (9-16); Calcium 9.8 mg/dL (8.4-10.2); Carbon Dioxide 28 mmol/L (22-29); Chloride 101 mmol/L (96-108); Cholesterol 153 mg/dL (<200); Creatinine Clr Calc Pharmacy 41.4; Estimated Glomerular Filt Rate 59; Glucose Fasting 117 mg/dL (60-99); HDL Cholesterol 53 mg/dL (>40); LDL Cholesterol Calculated 89 mg/dL (<100); Potassium 4.2 mmol/L (3.3-5.1); Sodium 139 mmol/L (135-145); Total Protein 6.7 g/dL (6.5-8.0); Triglycerides 55 mg/dL (<150)
[2023-10-21] MEDS: Famotidine 20 MG TABLET 40 MG PO (11:07)
--- NOTE | 2023-10-21 11:47 | HO.PSYCHPN ---
Subjective Subjective Date of Service: 10/21/23 Reason For Visit: AMS Subjective Notes: Conditional Voluntary Interim History: The nursing staff reported the patient slept well he had been compliant with medications he denies any problems. The staff noticed that he ate 50% of his meals and he had been hyperverbal and compliant, easily redirectable. On interview the patient denies new symptoms I explained that we are going to run some tests and he is in agreement of that. We will try to gather collateral information. Mental Status Exam Mental Status Exam Patient Appearance: Appropriate Patient Orientation: Person and Situation Level of Consciousness: Awake and Appropriate Patient Behavior: Guarded and Passive Mood Description: Calm Affect Description: Constricted Patient Cognition Impaired: Yes Ability to Follow Directions: Good Speech Pattern: Clear Hallucinations: None Delusions: Ideas of Reference Thought Process: Distracted and Slowed Thinking Thought Content: positive for [place] and positive for [place]overty of Content Judgement: Fair Diagnostics Vital Signs (24Hr): Vital Signs - 24 hr 10/20/23 14:03 10/20/23 20:20 10/21/23 06:00 Temperature 97.6 F 97.6 F 97.0 F Pulse Rate 80 82 59 Respiratory Rate 18 18 18 Blood Pressure 148/76 H 103/66 134/90 H Pulse Oximetry 94 94 96 Oxygen Delivery Method Room Air Room Air Room Air BMI result Body Mass Index 20.7 Labs 10/19/23 16:01 10/21/23 08:14 Labs: Laboratory Results - last 48 hr 10/19/23 10/19/23 10/21/23 15:20 16:01 08:14 WBC 6.3 RBC 5.19 Hgb 16.2 Hct 47.1 MCV 90.8 MCH 31.2 MCHC 34.4 RDW 12.6 Plt Count 192 MPV 9.7 Immature Gran % (Auto) 0.3 Neut % (Auto) 72.4 Lymph % (Auto) 16.3 L Gem % (Auto) 8.7 Eos % (Auto) 1.7 Baso % (Auto) 0.6 Lymph # (Auto) 1.0 L Gem # (Auto) 0.6 Eos # (Auto) 0.1 Baso # (Auto) 0.0 Abs Immat Gran (auto) 0.02 Absolute Neuts (auto) 4.6 Absolute Nucleated RBC 0.000 Nucleated RBC % (auto) 0.0 Sodium 144 139 Potassium 4.4 4.2 Chloride 106 101 Carbon Dioxide 29 28 Anion Gap 13 14 BUN 20 H 26 H Creatinine 0.99 1.17 Estim Creat Clear Calc 48.9 41.4 Estimated GFR > 60 59 Random Glucose 121 H Fasting Glucose 117 H Calcium 9.6 9.8 Magnesium 1.9 Total Bilirubin 1.2 H 1.5 H AST 21 29 ALT 15 15 Alkaline Phosphatase 56 56 Total Protein 6.7 6.7 Albumin 3.7 3.6 Triglycerides 55 Cholesterol 153 LDL Cholesterol, Calc 89 HDL Cholesterol 53 Urine Color Yellow Urine Appearance Clear Urine pH 5.5 Ur Specific [place] 1.020 Urine Protein Negative Urine Glucose (UA) Negative Urine Ketones Negative Urine Blood Negative Urine Nitrite Negative Ur Leukocyte Esterase Negative Urine Opiates Screen Not Detected Urine Fentanyl Screen Not Detected Ur Barbiturates Screen Not Detected Ur Phencyclidine Scrn Not Detected Ur Amphetamines Screen Not Detected U Benzodiazepines Scrn Not Detected Urine Cocaine Screen Not Detected U Marijuana (THC) Screen Not Detected Ethyl Alcohol < 10 COVID-19 (FER) Negative COVID-19 Clin Com See Note Medications Medications Current Medications Acetaminophen (Acetaminophen 325 Mg Tablet) 650 mg PO Q6H PRN PRN Reason: Headache/Pain Mild Scale (1-3) Al Hydroxide/Mg Hydroxide (Magnesium Hydrox/Alum Hydrox 30 Ml Oral.Susp) 30 ml PO Q6H PRN PRN Reason: Heartburn/Nausea Amlodipine Besylate (Amlodipine Besylate 2.5 Mg Tablet) 2.5 mg PO DAILY [facility]; Protocol Last Admin: 10/21/23 08:35 Dose: 2.5 mg Apixaban (Apixaban 5 Mg Tablet) 5 mg PO BID [facility] Last Admin: 10/21/23 08:35 Dose: 5 mg Famotidine (Famotidine 20 Mg Tablet) 40 mg PO [id number]@0900 [facility] Last Admin: 10/21/23 11:07 Dose: 40 mg Hydroxyzine HCl (Hydroxyzine Hcl 25 Mg Tablet) 25 mg PO Q6H PRN PRN Reason: Anxiety Isosorbide Mononitrate (Isosorbide Mononitrate 30 Mg Tab.Er.24h) 30 mg PO DAILY [facility]; Protocol Last Admin: 10/21/23 08:34 Dose: 30 mg Lisinopril (Lisinopril 10 Mg Tablet) 10 mg PO DAILY [facility]; Protocol Last Admin: 10/21/23 08:34 Dose: 10 mg Magnesium Hydroxide (Milk Of Magnesia 30 Ml Oral.Susp) 30 ml PO DAILY PRN PRN Reason: Constipation Last Admin: 10/20/23 21:41 Dose: 30 ml Metoprolol Tartrate (Metoprolol Tartrate 25 Mg Tablet) 25 mg PO BID [facility]; Protocol Last Admin: 10/21/23 08:34 Dose: 25 mg Quetiapine Fumarate (Quetiapine Fumarate 25 Mg Tablet) 25 mg PO BEDTIME [facility] Last Admin: 10/20/23 20:18 Dose: 25 mg Trazodone HCl (Trazodone Hcl 50 Mg Tablet) 50 mg PO BEDTIME MRX1 PRN PRN Reason: Insomnia Vitamin D (Cholecalciferol (Vitamin D3) 25 Mcg Tablet) 25 mcg PO DAILY [facility] Last Admin: 10/21/23 08:35 Dose: 25 mcg Allergies Allergies Allergy/AdvReac Type Severity Reaction Status Date / Time No Known Allergies Allergy Verified 10/19/23 15:28 Assessment & Plan Assessment & Plan (1) Persistent atrial fibrillation: Status: Acute Code(s): I48.19 - Other persistent atrial fibrillation (2) CAD (coronary artery disease): Qualifiers: Associated angina: with unstable angina Coronary Disease-Associated Artery/Lesion type: unspecified vessel or lesion type [place] vs. transplanted heart: [place] heart Qualified Code(s): I25.110 - Atherosclerotic heart disease of [place] coronary artery with unstable angina pectoris Status: Acute Code(s): I25.10 - Atherosclerotic heart disease of [place] coronary artery without angina pectoris (3) HTN (hypertension): Status: Acute Code(s): I10 - Essential (primary) hypertension (4) Hyperlipidemia: Status: Acute Code(s): E78.5 - Hyperlipidemia, unspecified (5) Psychosis: Status: Acute Code(s): F29 - Unspecified psychosis not due to a substance or known physiological condition Plan The patient is an 83-year-old male with a prior history of CAD, HTN, atrial fibrillation and other medical comorbidities with no prior psychiatric illness referred to the emergency room for the onset of psychosis. Also there is no report of a possible cognitive impairment. At the moment of the interview the patient denies new symptoms he is pleasant cooperative and he is willing to follow treatment. Plan 1. Gather collateral information. The patient is willing to give us permission to talk with his and family. 2. Continue with regular medical treatment. 3. Continue medical workout. 4. Reassessment with results. 5. [address] scan without contrast today. Reason for continued inpatient stay Substantial Risk for: inability to function, rapid decompensation and med/psych decompensation Time Spent With Patient Time: Total time managing care of this patient today __20__ minutes.
[2023-10-21 12:22] LABS: COVID-19 Test Negative (Negative); IDNOW Serial# 152EDE1D
[2023-10-21 18:00] VITALS: BP 132/90; PULSE 77; RESP 16; TEMP 36.1; O2SAT 95
[2023-10-21] MEDS: QUEtiapine Fumarate 25 MG TABLET PO (19:51)
--- NOTE | 2023-10-22 | ECG_ITS ---
Test Reason : Chest pain Blood Pressure : / mmHG Vent. Rate : 089 BPM Atrial Rate : 000 BPM P-R Int : 000 ms QRS Dur : 098 ms QT Int : 394 ms P-R-T Axes : 000 000 010 degrees QTc Int : 479 ms Atrial fibrillation Abnormal ECG When compared with ECG of 19-OCT-2023 15:42, No significant change was found Referred By: Rigoberto Lea Electronically Signed By:Ethan Roberts
[2023-10-22 07:00] VITALS: BMI 20.2
[2023-10-22 09:25] VITALS: BP 126/95; PULSE 89; RESP 16; TEMP 36.1; O2SAT 95
[2023-10-22] MEDS: Isosorbide Mononitrate 30 MG TAB.ER.24H PO (09:30)
[2023-10-22] MEDS: lisinopriL 10 MG TABLET PO (09:30)
[2023-10-22] MEDS: amLODIPine Besylate 2.5 MG TABLET PO (09:31)
[2023-10-22] MEDS: Apixaban 5 MG TABLET PO ×2 (09:31→20:20)
[2023-10-22] MEDS: Metoprolol Tartrate 25 MG TABLET PO ×2 (09:31→20:20)
[2023-10-22] MEDS: Cholecalciferol (Vitamin D3) 25 MCG TABLET PO (09:31)
[2023-10-22 12:40] VITALS: BP 116/70; PULSE 72
--- NOTE | 2023-10-22 12:43 | P.EN_ITS ---
Event Note Date of Service: 10/22/23 Event Note: Patient is an 83-year-old male PMH significant for HLD/CAD, carotid artery stenosis with bilateral stents in place, chronic AFib on Eliquis, and HTN admitted to [facility] for recent onset of visual hallucinations, paranoia, and disorganized behavior. Medical consult for sudden onset chest pain. Patient reports that earlier today he had an episode of left-sided neck pain that radiated to his chest and ?spread out? to his left side. Describes pain as a ?burning? sensation. Patient states he has experienced similar symptoms in the past, claiming ?stress and over doing it can exacerbate symptoms. Reports if he sits and calms down the pain will subside. Patient states he has a history of stents in his carotid arteries, saying that his left stent ?broke? and had to be replaced. Also reports being very active and running almost daily. Normally does not experience symptoms with that activity. Patient seen and evaluated while sitting on a bed outside his room. Patient appears alert and oriented and resting comfortably. In no acute distress. Currently denies any chest pain or pressure. No tenderness to palpation of anterior chest wall or left side. EKG shows AFib without ST elevations or depressions, similar to previous with no significant changes. Patient is currently treated appropriately for chronic AFib, being on metoprolol and Eliquis. Lipid panel from yesterday all WNL, no indication for statin. Will hold off on nitro, as patient no longer experiencing symptoms. Will get troponin. Attending: Dr. Juan Time Spent With Patient Time: Total time managing care of this patient today ____ minutes.
--- NOTE | 2023-10-22 16:08 | HO.PSYCHPN ---
Subjective Subjective Date of Service: 10/22/23 Reason For Visit: AMS Subjective Notes: Conditional Voluntary Interim History: The nursing staff reported the patient had been paranoid, he did not trust the food and he likes only items that they are sealed. He slept well with Seroquel. The social group worker reported that he met with his reported that he had been seeing little people in the basement had been confabulatory and he asked to be discharged soon. Later on in the afternoon the patient complained of chest pain and I order an EKG and called the hospitalist fortunately there were no new findings. On interview the patient reports or minimizes his psychotic symptoms and he wants to be discharged as soon as possible once we finished the medical workout. Mental Status Exam Mental Status Exam Patient Appearance: Appropriate Patient Orientation: Person and Situation Level of Consciousness: Awake and Appropriate Patient Behavior: Guarded and Passive Mood Description: Withdrawn Affect Description: Constricted Patient Cognition Impaired: Yes Ability to Follow Directions: Good Speech Pattern: Clear Hallucinations: None Delusions: Paranoid Ideation Thought Process: Distracted and Slowed Thinking Thought Content: positive for [place] and positive for Poverty of Content Judgement: Fair Diagnostics Vital Signs (24Hr): Vital Signs - 24 hr 10/21/23 18:00 10/22/23 09:25 10/22/23 12:40 Temperature 97 F 97.0 F Pulse Rate 77 89 72 Respiratory Rate 16 16 Blood Pressure 132/90 H 126/95 H 116/70 Pulse Oximetry 95 95 Oxygen Delivery Method Room Air Room Air BMI result Body Mass Index 20.7 Labs 10/19/23 16:01 10/21/23 08:14 Labs: Laboratory Results - last 48 hr 10/21/23 10/21/23 10/22/23 08:14 11:08 12:46 Sodium 139 Potassium 4.2 Chloride 101 Carbon Dioxide 28 Anion Gap 14 BUN 26 H Creatinine 1.17 Estim Creat Clear Calc 41.4 Estimated GFR 59 Fasting Glucose 117 H Calcium 9.8 Total Bilirubin 1.5 H AST 29 ALT 15 Alkaline Phosphatase 56 Troponin I High Sens 24.0 D Total Protein 6.7 Albumin 3.6 Triglycerides 55 Cholesterol 153 LDL Cholesterol, Calc 89 HDL Cholesterol 53 COVID-19 (FER) Negative COVID-19 Clin Com See Note Imaging Radiology Impressions: ITS Impressions Head CT 10/21/23 10:27 IMPRESSION: No acute intracranial hemorrhage or territorial loss of clark-white differentiation. Medications Medications Current Medications Acetaminophen (Acetaminophen 325 Mg Tablet) 650 mg PO Q6H PRN PRN Reason: Headache/Pain Mild Scale (1-3) Al Hydroxide/Mg Hydroxide (Magnesium Hydrox/Alum Hydrox 30 Ml Oral.Susp) 30 ml PO Q6H PRN PRN Reason: Heartburn/Nausea Amlodipine Besylate (Amlodipine Besylate 2.5 Mg Tablet) 2.5 mg PO DAILY [facility]; Protocol Last Admin: 10/22/23 09:31 Dose: 2.5 mg Apixaban (Apixaban 5 Mg Tablet) 5 mg PO BID [facility] Last Admin: 10/22/23 09:31 Dose: 5 mg Famotidine (Famotidine 20 Mg Tablet) 40 mg PO MoWeSa@0900 [facility] Last Admin: 10/21/23 11:07 Dose: 40 mg Haloperidol (Haloperidol 1 Mg Tablet) 1 mg PO Q4H PRN PRN Reason: Psychosis Hydroxyzine HCl (Hydroxyzine Hcl 25 Mg Tablet) 25 mg PO Q6H PRN PRN Reason: Anxiety Isosorbide Mononitrate (Isosorbide Mononitrate 30 Mg Tab.Er.24h) 30 mg PO DAILY [facility]; Protocol Last Admin: 10/22/23 09:30 Dose: 30 mg Lisinopril (Lisinopril 10 Mg Tablet) 10 mg PO DAILY [facility]; Protocol Last Admin: 10/22/23 09:30 Dose: 10 mg Magnesium Hydroxide (Milk Of Magnesia 30 Ml Oral.Susp) 30 ml PO DAILY PRN PRN Reason: Constipation Last Admin: 10/20/23 21:41 Dose: 30 ml Metoprolol Tartrate (Metoprolol Tartrate 25 Mg Tablet) 25 mg PO BID [facility]; Protocol Last Admin: 10/22/23 09:31 Dose: 25 mg Quetiapine Fumarate (Quetiapine Fumarate 25 Mg Tablet) 25 mg PO BEDTIME [facility] Last Admin: 10/21/23 19:51 Dose: 25 mg Trazodone HCl (Trazodone Hcl 50 Mg Tablet) 50 mg PO BEDTIME MRX1 PRN PRN Reason: Insomnia Vitamin D (Cholecalciferol (Vitamin D3) 25 Mcg Tablet) 25 mcg PO DAILY [facility] Last Admin: 10/22/23 09:31 Dose: 25 mcg Allergies Allergies Allergy/AdvReac Type Severity Reaction Status Date / Time No Known Allergies Allergy Verified 10/19/23 15:28 Assessment & Plan Assessment & Plan (1) Persistent atrial fibrillation: Status: Acute Code(s): I48.19 - Other persistent atrial fibrillation (2) CAD (coronary artery disease): Qualifiers: Associated angina: with unstable angina Coronary Disease-Associated Artery/Lesion type: unspecified vessel or lesion type [place] vs. transplanted heart: [place] heart Qualified Code(s): I25.110 - Atherosclerotic heart disease of [place] coronary artery with unstable angina pectoris Status: Acute Code(s): I25.10 - Atherosclerotic heart disease of [place] coronary artery without angina pectoris (3) HTN (hypertension): Status: Acute Code(s): I10 - Essential (primary) hypertension (4) Hyperlipidemia: Status: Acute Code(s): E78.5 - Hyperlipidemia, unspecified (5) Psychosis: Status: Acute Code(s): F29 - Unspecified psychosis not due to a substance or known physiological condition Plan The patient is an 83-year-old male with a prior history of CAD, HTN, atrial fibrillation and other medical comorbidities with no prior psychiatric illness referred to the emergency room for the onset of psychosis. Also there is no report of a possible cognitive impairment. At the moment of the interview the patient denies new symptoms he is pleasant cooperative and he is willing to follow treatment. Plan 1. Gather collateral information. The patient is willing to give us permission to talk with his and family. 2. Continue with regular medical treatment. 3. Continue medical workout. 4. Reassessment with results. 5. [address] scan without contrast today. 7. Occupational therapist will do cognitive assessment soon Reason for continued inpatient stay Substantial Risk for: inability to function, rapid decompensation and med/psych decompensation Time Spent With Patient Time: Total time managing care of this patient today __20__ minutes.
[2023-10-22] MEDS: HaloperidoL 1 MG TABLET PO (16:44)
[2023-10-22 19:48] VITALS: BP 113/76; PULSE 79; RESP 16; TEMP 36.9; O2SAT 79
[2023-10-22] MEDS: QUEtiapine Fumarate 25 MG TABLET PO (20:21)
--- NOTE | 2023-10-23 | ECG_ITS ---
Test Reason : CHEST PAIN Blood Pressure : / mmHG Vent. Rate : 106 BPM Atrial Rate : 000 BPM P-R Int : 000 ms QRS Dur : 094 ms QT Int : 362 ms P-R-T Axes : 000 -15 061 degrees QTc Int : 480 ms Atrial fibrillation with rapid ventricular response Abnormal ECG When compared with ECG of 22-OCT-2023 12:02, No significant change was found Referred By: Rigoberto Lea Electronically Signed By:Ethan Roberts
[2023-10-23 06:00] VITALS: BP 104/63; PULSE 65; RESP 17; TEMP 36.2; O2SAT 97
[2023-10-23] MEDS: lisinopriL 10 MG TABLET PO (10:04)
[2023-10-23] MEDS: Apixaban 5 MG TABLET PO ×2 (10:04→20:10)
[2023-10-23] MEDS: Cholecalciferol (Vitamin D3) 25 MCG TABLET PO (10:04)
[2023-10-23] MEDS: amLODIPine Besylate 2.5 MG TABLET PO (10:04)
[2023-10-23] MEDS: Isosorbide Mononitrate 30 MG TAB.ER.24H PO (10:05)
[2023-10-23] MEDS: Metoprolol Tartrate 25 MG TABLET PO ×2 (10:05→20:10)
--- NOTE | 2023-10-23 10:10 | PC.NURSE ---
This morning, patient reported burning in his carotid along with chest pain. His BP was 104/63 and pulse 65 but with inconsistent rhythm. Dr. Lea notified, EKG ordered and morning medications given per Dr orders. Patient currently resting in bed, states this place is stressing me out which is making this all worse .
--- NOTE | 2023-10-23 11:48 | HO.PSYCHPN ---
Subjective Subjective Date of Service: 10/23/23 Reason For Visit: AMS Subjective Notes: Conditional Voluntary Healthcare Proxy: Yes Guardianship: No Medical Problems Affecting Mental Status: Yes (CAD) Interim History: The nursing staff reported the patient complained yesterday of chest pain and today in the morning he was complaining of some palpitations. We did an EKG with no changes again. The occupational therapist reported that he scored 3.2 on the Hasmukh test and a [place] 15/30. He has good verbal skills but he was very tangential and he had visual hallucinations here. On interview the patient denies new symptoms he wants to get discharged as soon as possible. 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 Mental Status Exam Mental Status Exam Patient Appearance: Well Grooomed and Appropriate Patient Orientation: Person Level of Consciousness: Awake Patient Behavior: Guarded Mood Description: Withdrawn Affect Description: Constricted Patient Cognition Impaired: Yes Ability to Follow Directions: Fair Speech Pattern: Clear Hallucinations: Auditory Delusions: Paranoid Ideation and Ideas of Reference Thought Process: Distracted and Slowed Thinking Thought Content: positive for [place] and positive for [place] Judgement: Fair Diagnostics Vital Signs (24Hr): Vital Signs - 24 hr 10/22/23 12:40 10/22/23 19:48 10/23/23 06:00 Temperature 98.4 F 97.2 F Pulse Rate 72 79 65 Respiratory Rate 16 17 Blood Pressure 116/70 113/76 104/63 Pulse Oximetry 79 L 97 Oxygen Delivery Method Room Air Room Air BMI result Body Mass Index 20.7 Labs 10/19/23 16:01 10/21/23 08:14 Labs: Laboratory Results - last 48 hr 10/21/23 10/22/23 11:08 12:46 Troponin I High Sens 24.0 D COVID-19 (FER) Negative COVID-19 Clin Com See Note Imaging Radiology Impressions: ITS Impressions Head CT 10/21/23 10:27 IMPRESSION: No acute intracranial hemorrhage or territorial loss of clark-white differentiation. Medications Medications Current Medications Acetaminophen (Acetaminophen 325 Mg Tablet) 650 mg PO Q6H PRN PRN Reason: Headache/Pain Mild Scale (1-3) Al Hydroxide/Mg Hydroxide (Magnesium Hydrox/Alum Hydrox 30 Ml Oral.Susp) 30 ml PO Q6H PRN PRN Reason: Heartburn/Nausea Amlodipine Besylate (Amlodipine Besylate 2.5 Mg Tablet) 2.5 mg PO DAILY [facility]; Protocol Last Admin: 10/23/23 10:04 Dose: 2.5 mg Apixaban (Apixaban 5 Mg Tablet) 5 mg PO BID [facility] Last Admin: 10/23/23 10:04 Dose: 5 mg Famotidine (Famotidine 20 Mg Tablet) 40 mg PO MoWeSa@0900 [facility] Last Admin: 10/21/23 11:07 Dose: 40 mg Haloperidol (Haloperidol 1 Mg Tablet) 1 mg PO Q4H PRN PRN Reason: Psychosis Last Admin: 10/22/23 16:44 Dose: 1 mg Hydroxyzine HCl (Hydroxyzine Hcl 25 Mg Tablet) 25 mg PO Q6H PRN PRN Reason: Anxiety Isosorbide Mononitrate (Isosorbide Mononitrate 30 Mg Tab.Er.24h) 30 mg PO DAILY [facility]; Protocol Last Admin: 10/23/23 10:05 Dose: 30 mg Lisinopril (Lisinopril 10 Mg Tablet) 10 mg PO DAILY [facility]; Protocol Last Admin: 10/23/23 10:04 Dose: 10 mg Magnesium Hydroxide (Milk Of Magnesia 30 Ml Oral.Susp) 30 ml PO DAILY PRN PRN Reason: Constipation Last Admin: 10/20/23 21:41 Dose: 30 ml Metoprolol Tartrate (Metoprolol Tartrate 25 Mg Tablet) 25 mg PO BID [facility]; Protocol Last Admin: 10/23/23 10:05 Dose: 25 mg Quetiapine Fumarate (Quetiapine Fumarate 25 Mg Tablet) 25 mg PO BEDTIME [facility] Last Admin: 10/22/23 20:21 Dose: 25 mg Trazodone HCl (Trazodone Hcl 50 Mg Tablet) 50 mg PO BEDTIME MRX1 PRN PRN Reason: Insomnia Vitamin D (Cholecalciferol (Vitamin D3) 25 Mcg Tablet) 25 mcg PO DAILY [facility] Last Admin: 10/23/23 10:04 Dose: 25 mcg Allergies Allergies Allergy/AdvReac Type Severity Reaction Status Date / Time No Known Allergies Allergy Verified 10/19/23 15:28 Assessment & Plan Assessment & Plan (1) Persistent atrial fibrillation: Status: Acute Code(s): I48.19 - Other persistent atrial fibrillation (2) CAD (coronary artery disease): Qualifiers: Associated angina: with unstable angina Coronary Disease-Associated Artery/Lesion type: unspecified vessel or lesion type [place] vs. transplanted heart: [place] heart Qualified Code(s): I25.110 - Atherosclerotic heart disease of [place] coronary artery with unstable angina pectoris Status: Acute Code(s): I25.10 - Atherosclerotic heart disease of [place] coronary artery without angina pectoris (3) HTN (hypertension): Status: Acute Code(s): I10 - Essential (primary) hypertension (4) Hyperlipidemia: Status: Acute Code(s): E78.5 - Hyperlipidemia, unspecified (5) Psychosis: Status: Acute Code(s): F29 - Unspecified psychosis not due to a substance or known physiological condition Plan The patient is an 83-year-old male with a prior history of CAD, HTN, atrial fibrillation and other medical comorbidities with no prior psychiatric illness referred to the emergency room for the onset of psychosis. Also there is no report of a possible cognitive impairment. At the moment of the interview the patient denies new symptoms he is pleasant cooperative and he is willing to follow treatment. Plan 1. Gather collateral information. The patient is willing to give us permission to talk with his and family. 2. Continue with regular medical treatment. 3. Continue medical workout. 4. Reassessment with results. 5. [address] scan without contrast today. 7. Occupational therapist did a [place] he scored 50/30 and the Hasmukh test he scored 3.2. 8. Start Haldol 1 mg p.o. q.h.s. and 0.5 in the morning. 9. Start Namenda 5 mg p.o. daily. 10. Blood work for Thursday Reason for continued inpatient stay Substantial Risk for: inability to function, rapid decompensation and med/psych decompensation Time Spent With Patient Time: Total time managing care of this patient today __20__ minutes.
[2023-10-23 18:00] VITALS: BP 104/60; PULSE 77; RESP 18; TEMP 36.1; O2SAT 99
[2023-10-23] MEDS: QUEtiapine Fumarate 25 MG TABLET PO (20:10)
[2023-10-23] MEDS: HaloperidoL 1 MG TABLET PO (20:11)
[2023-10-24 06:00] VITALS: BP 149/86; PULSE 86; RESP 18; TEMP 36.6; O2SAT 97
[2023-10-24] MEDS: Apixaban 5 MG TABLET PO ×2 (08:50→20:33)
[2023-10-24] MEDS: Metoprolol Tartrate 25 MG TABLET PO ×2 (08:50→20:33)
[2023-10-24] MEDS: Cholecalciferol (Vitamin D3) 25 MCG TABLET PO (08:50)
[2023-10-24] MEDS: amLODIPine Besylate 2.5 MG TABLET PO (08:50)
[2023-10-24] MEDS: Isosorbide Mononitrate 30 MG TAB.ER.24H PO (08:50)
[2023-10-24] MEDS: Memantine HCl 5 MG TABLET PO (08:50)
[2023-10-24] MEDS: HaloperidoL 0.5 MG TABLET PO (08:50)
[2023-10-24] MEDS: lisinopriL 10 MG TABLET PO (08:50)
[2023-10-24] MEDS: Famotidine 20 MG TABLET 40 MG PO (16:53)
--- NOTE | 2023-10-24 17:48 | HO.PSYCHPN ---
Subjective Subjective Date of Service: 10/24/23 Reason For Visit: AMS Interim History: Patient is irritable and upset about being hospitalized. He is worried that he will stay here until the day he dies. 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 He says that he has very sharp eyesight which is why he sees things. His insight remains impaired. He is taking medications. On interview the patient denies new symptoms he wants to get discharged as soon as possible. Review of Systems Review of Systems Constitutional: No Fever, No Chills, No Fatigue, No Malaise ENT/Mouth:No Ear Pain, No sore throat, No Rhinorrhea, No Swallowing Difficulty Cardiovascular: No Chest Pain, No SOB, No Palpitations Respiratory: No Cough, No Dyspnea Gastrointestinal: No Nausea, No Vomiting, No Diarrhea, No Constipation, No Abdominal pain Musculoskeletal: No joint pain, No Myalgias, No Joint Swelling Skin: No Skin Lesions, No rash Neuro: No Weakness Psych: No Anxiety/Panic, No Depression, No SI/HI, +AH/VH, No Social Issues Yes all other systems are reviewed and are negative Constitutional: Reports as per HPI Mental Status Exam Mental Status Exam Patient Appearance: Well Grooomed and Appropriate Patient Orientation: Person Level of Consciousness: Awake Patient Behavior: Guarded Mood Description: Withdrawn Affect Description: Constricted Patient Cognition Impaired: Yes Ability to Follow Directions: Fair Speech Pattern: Clear Diagnostics Vital Signs (24Hr): Vital Signs - 24 hr 10/23/23 18:00 10/24/23 06:00 Temperature 96.9 F 97.8 F Pulse Rate 77 86 Respiratory Rate 18 18 Blood Pressure 104/60 149/86 H Pulse Oximetry 99 97 Oxygen Delivery Method Room Air Room Air BMI result Body Mass Index 20.2 Labs 10/19/23 16:01 10/21/23 08:14 Imaging Radiology Impressions: ITS Impressions Head CT 10/21/23 10:27 IMPRESSION: No acute intracranial hemorrhage or territorial loss of clark-white differentiation. Medications Medications Current Medications Acetaminophen (Acetaminophen 325 Mg Tablet) 650 mg PO Q6H PRN PRN Reason: Headache/Pain Mild Scale (1-3) Al Hydroxide/Mg Hydroxide (Magnesium Hydrox/Alum Hydrox 30 Ml Oral.Susp) 30 ml PO Q6H PRN PRN Reason: Heartburn/Nausea Amlodipine Besylate (Amlodipine Besylate 2.5 Mg Tablet) 2.5 mg PO DAILY [facility]; Protocol Last Admin: 10/24/23 08:50 Dose: 2.5 mg Apixaban (Apixaban 5 Mg Tablet) 5 mg PO BID [facility] Last Admin: 10/24/23 08:50 Dose: 5 mg Famotidine (Famotidine 20 Mg Tablet) 40 mg PO [id number] [facility] Last Admin: 10/24/23 16:53 Dose: 40 mg Haloperidol (Haloperidol 1 Mg Tablet) 1 mg PO Q4H PRN PRN Reason: Psychosis Last Admin: 10/22/23 16:44 Dose: 1 mg Haloperidol (Haloperidol 1 Mg Tablet) 1 mg PO BEDTIME [facility] Last Admin: 10/23/23 20:11 Dose: 1 mg Haloperidol (Haloperidol 0.5 Mg Tablet) 0.5 mg PO DAILY [facility] Last Admin: 10/24/23 08:50 Dose: 0.5 mg Hydroxyzine HCl (Hydroxyzine Hcl 25 Mg Tablet) 25 mg PO Q6H PRN PRN Reason: Anxiety Isosorbide Mononitrate (Isosorbide Mononitrate 30 Mg Tab.Er.24h) 30 mg PO DAILY [facility]; Protocol Last Admin: 10/24/23 08:50 Dose: 30 mg Lisinopril (Lisinopril 10 Mg Tablet) 10 mg PO DAILY [facility]; Protocol Last Admin: 10/24/23 08:50 Dose: 10 mg Magnesium Hydroxide (Milk Of Magnesia 30 Ml Oral.Susp) 30 ml PO DAILY PRN PRN Reason: Constipation Last Admin: 10/20/23 21:41 Dose: 30 ml Memantine (Memantine Hcl 5 Mg Tablet) 5 mg PO DAILY [facility] Last Admin: 10/24/23 08:50 Dose: 5 mg Metoprolol Tartrate (Metoprolol Tartrate 25 Mg Tablet) 25 mg PO BID [facility]; Protocol Last Admin: 10/24/23 08:50 Dose: 25 mg Quetiapine Fumarate (Quetiapine Fumarate 25 Mg Tablet) 25 mg PO BEDTIME [facility] Last Admin: 10/23/23 20:10 Dose: 25 mg Trazodone HCl (Trazodone Hcl 50 Mg Tablet) 50 mg PO BEDTIME [id number] PRN PRN Reason: Insomnia Vitamin D (Cholecalciferol (Vitamin D3) 25 Mcg Tablet) 25 mcg PO DAILY [facility] Last Admin: 10/24/23 08:50 Dose: 25 mcg Allergies Allergies Allergy/AdvReac Type Severity Reaction Status Date / Time No Known Allergies Allergy Verified 10/19/23 15:28 Assessment & Plan Assessment & Plan (1) Persistent atrial fibrillation: Status: Acute Code(s): I48.19 - Other persistent atrial fibrillation (2) CAD (coronary artery disease): Qualifiers: Associated angina: with unstable angina Coronary Disease-Associated Artery/Lesion type: unspecified vessel or lesion type [place] vs. transplanted heart: [place] heart Qualified Code(s): I25.110 - Atherosclerotic heart disease of [place] coronary artery with unstable angina pectoris Status: Acute Code(s): I25.10 - Atherosclerotic heart disease of [place] coronary artery without angina pectoris (3) HTN (hypertension): Status: Acute Code(s): I10 - Essential (primary) hypertension (4) Hyperlipidemia: Status: Acute Code(s): E78.5 - Hyperlipidemia, unspecified (5) Psychosis: Status: Acute Code(s): F29 - Unspecified psychosis not due to a substance or known physiological condition Plan The patient is an 83-year-old male with a prior history of CAD, HTN, atrial fibrillation and other medical comorbidities with no prior psychiatric illness referred to the emergency room for the onset of psychosis. Also there is no report of a possible cognitive impairment. At the moment of the interview the patient denies new symptoms he is pleasant cooperative and he is willing to follow treatment. Plan 1. Gather collateral information. The patient is willing to give us permission to talk with his and family. 2. Continue with regular medical treatment. 3. Continue medical workout. 4. Reassessment with results. 5. [address] scan without contrast today. 7. Occupational therapist did a [place] he scored 50/30 and the Hasmukh test he scored 3.2. 8. Start Haldol 1 mg p.o. q.h.s. and 0.5 in the morning. 9. Start Namenda 5 mg p.o. daily. 10. Blood work for Tuesday 10/24: Continue current treatment plan. Reason for continued inpatient stay Substantial Risk for: inability to function and rapid decompensation Time Spent With Patient Time: Total time managing care of this patient today ____ minutes.
[2023-10-24 18:00] VITALS: BP 124/72; PULSE 92; RESP 16; TEMP 35.6; O2SAT 95
[2023-10-24] MEDS: HaloperidoL 1 MG TABLET PO (20:33)
[2023-10-24] MEDS: traZODone HCL 50 MG TABLET PO (20:33)
[2023-10-24] MEDS: QUEtiapine Fumarate 25 MG TABLET PO (20:34)
[2023-10-25 06:00] VITALS: BP 128/66; PULSE 88; RESP 16; TEMP 36.3; O2SAT 96
[2023-10-25] MEDS: Apixaban 5 MG TABLET PO ×2 (10:51→20:18)
[2023-10-25] MEDS: Isosorbide Mononitrate 30 MG TAB.ER.24H PO (10:51)
[2023-10-25] MEDS: lisinopriL 10 MG TABLET PO (10:51)
[2023-10-25] MEDS: HaloperidoL 0.5 MG TABLET PO (10:52)
[2023-10-25] MEDS: Cholecalciferol (Vitamin D3) 25 MCG TABLET PO (10:52)
[2023-10-25] MEDS: Memantine HCl 5 MG TABLET PO (10:52)
[2023-10-25] MEDS: amLODIPine Besylate 2.5 MG TABLET PO (10:52)
[2023-10-25] MEDS: Metoprolol Tartrate 25 MG TABLET PO ×2 (10:58→20:18)
--- NOTE | 2023-10-25 16:53 | HO.PSYCHPN ---
Subjective Subjective Date of Service: 10/25/23 Reason For Visit: AMS Interim History: Patient is frustrated and upset about being hospitalized. Some daytime sedation noted. Some confusion. Remains with VH. He says that he has very sharp eyesight which is why he sees things. His insight remains impaired. He is taking medications. On interview the patient denies new symptoms he wants to get discharged as soon as possible. Review of Systems Review of Systems Constitutional: No Fever, No Chills, No Fatigue, No Malaise ENT/Mouth:No Ear Pain, No sore throat, No Rhinorrhea, No Swallowing Difficulty Cardiovascular: No Chest Pain, No SOB, No Palpitations Respiratory: No Cough, No Dyspnea Gastrointestinal: No Nausea, No Vomiting, No Diarrhea, No Constipation, No Abdominal pain Musculoskeletal: No joint pain, No Myalgias, No Joint Swelling Skin: No Skin Lesions, No rash Neuro: No Weakness Psych: No Anxiety/Panic, No Depression, No SI/HI, +AH/VH, No Social Issues Yes all other systems are reviewed and are negative Constitutional: Reports as per [facility] Mental Status Exam Mental Status Exam Patient Appearance: Well Grooomed and Appropriate Patient Orientation: Person Level of Consciousness: Awake Patient Behavior: Guarded Mood Description: Withdrawn Affect Description: Constricted Patient Cognition Impaired: Yes Ability to Follow Directions: Fair Speech Pattern: Clear Diagnostics Vital Signs (24Hr): Vital Signs - 24 hr 10/24/23 18:00 10/25/23 06:00 Temperature 96.1 F L 97.4 F Pulse Rate 92 88 Respiratory Rate 16 16 Blood Pressure 124/72 128/66 Pulse Oximetry 95 96 Oxygen Delivery Method Room Air Room Air BMI result Body Mass Index 20.2 Labs 10/19/23 16:01 10/21/23 08:14 Imaging Radiology Impressions: ITS Impressions Head CT 10/21/23 10:27 IMPRESSION: No acute intracranial hemorrhage or territorial loss of clark-white differentiation. Medications Medications Current Medications Acetaminophen (Acetaminophen 325 Mg Tablet) 650 mg PO Q6H PRN PRN Reason: Headache/Pain Mild Scale (1-3) Al Hydroxide/Mg Hydroxide (Magnesium Hydrox/Alum Hydrox 30 Ml Oral.Susp) 30 ml PO Q6H PRN PRN Reason: Heartburn/Nausea Amlodipine Besylate (Amlodipine Besylate 2.5 Mg Tablet) 2.5 mg PO DAILY [facility]; Protocol Last Admin: 10/25/23 10:52 Dose: 2.5 mg Apixaban (Apixaban 5 Mg Tablet) 5 mg PO BID [facility] Last Admin: 10/25/23 10:51 Dose: 5 mg Famotidine (Famotidine 20 Mg Tablet) 40 mg PO [id number] [facility] Last Admin: 10/24/23 16:53 Dose: 40 mg Haloperidol (Haloperidol 1 Mg Tablet) 1 mg PO Q4H PRN PRN Reason: Psychosis Last Admin: 10/22/23 16:44 Dose: 1 mg Haloperidol (Haloperidol 1 Mg Tablet) 1 mg PO BEDTIME [facility] Last Admin: 10/24/23 20:33 Dose: 1 mg Haloperidol (Haloperidol 0.5 Mg Tablet) 0.5 mg PO DAILY [facility] Last Admin: 10/25/23 10:52 Dose: 0.5 mg Hydroxyzine HCl (Hydroxyzine Hcl 25 Mg Tablet) 25 mg PO Q6H PRN PRN Reason: Anxiety Isosorbide Mononitrate (Isosorbide Mononitrate 30 Mg Tab.Er.24h) 30 mg PO DAILY [facility]; Protocol Last Admin: 10/25/23 10:51 Dose: 30 mg Lisinopril (Lisinopril 10 Mg Tablet) 10 mg PO DAILY [facility]; Protocol Last Admin: 10/25/23 10:51 Dose: 10 mg Magnesium Hydroxide (Milk Of Magnesia 30 Ml Oral.Susp) 30 ml PO DAILY PRN PRN Reason: Constipation Last Admin: 10/20/23 21:41 Dose: 30 ml Memantine (Memantine Hcl 5 Mg Tablet) 5 mg PO DAILY [facility] Last Admin: 10/25/23 10:52 Dose: 5 mg Metoprolol Tartrate (Metoprolol Tartrate 25 Mg Tablet) 25 mg PO BID [facility]; Protocol Last Admin: 10/25/23 10:58 Dose: 25 mg Quetiapine Fumarate (Quetiapine Fumarate 25 Mg Tablet) 25 mg PO BEDTIME [facility] Last Admin: 10/24/23 20:34 Dose: 25 mg Trazodone HCl (Trazodone Hcl 50 Mg Tablet) 50 mg PO BEDTIME MRX1 PRN PRN Reason: Insomnia Last Admin: 10/24/23 20:33 Dose: 50 mg Vitamin D (Cholecalciferol (Vitamin D3) 25 Mcg Tablet) 25 mcg PO DAILY [facility] Last Admin: 10/25/23 10:52 Dose: 25 mcg Allergies Allergies Allergy/AdvReac Type Severity Reaction Status Date / Time No Known Allergies Allergy Verified 10/19/23 15:28 Assessment & Plan Assessment & Plan (1) Persistent atrial fibrillation: Status: Acute Code(s): I48.19 - Other persistent atrial fibrillation (2) CAD (coronary artery disease): Qualifiers: Associated angina: with unstable angina Coronary Disease-Associated Artery/Lesion type: unspecified vessel or lesion type [place] vs. transplanted heart: [place] heart Qualified Code(s): I25.110 - Atherosclerotic heart disease of [place] coronary artery with unstable angina pectoris Status: Acute Code(s): I25.10 - Atherosclerotic heart disease of [place] coronary artery without angina pectoris (3) HTN (hypertension): Status: Acute Code(s): I10 - Essential (primary) hypertension (4) Hyperlipidemia: Status: Acute Code(s): E78.5 - Hyperlipidemia, unspecified (5) Psychosis: Status: Acute Code(s): F29 - Unspecified psychosis not due to a substance or known physiological condition Plan The patient is an 83-year-old male with a prior history of CAD, HTN, atrial fibrillation and other medical comorbidities with no prior psychiatric illness referred to the emergency room for the onset of psychosis. Also there is no report of a possible cognitive impairment. At the moment of the interview the patient denies new symptoms he is pleasant cooperative and he is willing to follow treatment. Plan 1. Gather collateral information. The patient is willing to give us permission to talk with his and family. 2. Continue with regular medical treatment. 3. Continue medical workout. 4. Reassessment with results. 5. [address] scan without contrast today. 7. Occupational therapist did a [place] he scored 50/30 and the Hasmukh test he scored 3.2. 8. Start Haldol 1 mg p.o. q.h.s. and 0.5 in the morning. 9. Start Namenda 5 mg p.o. daily. 10. Blood work for Tuesday 10/24: Continue current treatment plan. 10/25: Continue current management and treatment plan. Reason for continued inpatient stay Substantial Risk for: inability to function and rapid decompensation Time Spent With Patient Time: Total time managing care of this patient today ____ minutes.
[2023-10-25 18:00] VITALS: BP 98/65; PULSE 102; RESP 16; TEMP 36.3; O2SAT 93
[2023-10-25] MEDS: HaloperidoL 1 MG TABLET PO (20:18)
[2023-10-25] MEDS: QUEtiapine Fumarate 25 MG TABLET PO (20:19)
[2023-10-26 06:00] VITALS: BP 107/62; PULSE 94; RESP 16; TEMP 36.4; O2SAT 97
[2023-10-26 08:27] LABS: Alanine Aminotransferase 24 U/L (0-40); Albumin Level 3.6 g/dL (3.5-5.0); Alkaline Phosphatase 47 U/L (39-117); Aspartate Amino Transferase 37 U/L (5-37); Bilirubin Direct 0.5 mg/dL (0.0-0.5); Bilirubin Total 1.4 mg/dL (0.0-1.0); Total Protein 6.5 g/dL (6.5-8.0)
[2023-10-26 08:53] LABS: Vitamin B12 424 pg/mL (200-900)
[2023-10-26] MEDS: lisinopriL 10 MG TABLET PO (09:11)
[2023-10-26] MEDS: HaloperidoL 0.5 MG TABLET PO (09:11)
[2023-10-26] MEDS: amLODIPine Besylate 2.5 MG TABLET PO (09:11)
[2023-10-26] MEDS: Metoprolol Tartrate 25 MG TABLET PO ×2 (09:11→20:31)
[2023-10-26] MEDS: Isosorbide Mononitrate 30 MG TAB.ER.24H PO (09:11)
[2023-10-26] MEDS: Cholecalciferol (Vitamin D3) 25 MCG TABLET PO (09:11)
[2023-10-26] MEDS: Memantine HCl 5 MG TABLET PO ×2 (09:12→20:31)
[2023-10-26] MEDS: Apixaban 5 MG TABLET PO ×2 (10:30→20:31)
[2023-10-26] MEDS: Famotidine 20 MG TABLET 40 MG PO (10:32)
--- NOTE | 2023-10-26 14:05 | P.PNPSI_ITS ---
Subjective Subjective Date of Service: 10/26/23 Reason For Visit: AMS Subjective Notes: Conditional Voluntary and 3 Day Interim History: The nursing staff reported the patient has been sleepy at times, outside in the milieu confused but easily redirectable. He wanted to be discharged as soon as possible, he was encouraged to sign a 3 day notice. On assessment, the patient remains pleasant, cooperative but very confused with poor short-term memory. We are increasing Namenda to 5 mg p.o. b.i.d.. We discussed the case with the family on Thursday and they are going to affirmed healthcare proxy so we are going the legal paperwork. Mental Status Exam Mental Status Exam Patient Appearance: Well Grooomed and Appropriate Patient Orientation: Person and Situation Level of Consciousness: Awake Patient Behavior: Appropriate and Suspicious Mood Description: Withdrawn Affect Description: Constricted Patient Cognition Impaired: Yes Ability to Follow Directions: Fair Speech Pattern: Clear Hallucinations: None Delusions: Ideas of Reference Thought Process: Illogical, Distracted and Evasive Thought Content: positive for [place] and positive for Tangential Judgement: Poor Diagnostics Vital Signs (24Hr): Vital Signs - 24 hr 10/25/23 18:00 10/26/23 06:00 Temperature 97.4 F 97.6 F Pulse Rate 102 H 94 Respiratory Rate 16 16 Blood Pressure 98/65 107/62 Pulse Oximetry 93 97 Oxygen Delivery Method Room Air Room Air BMI result Body Mass Index 20.2 Labs 10/19/23 16:01 10/21/23 08:14 Labs: Laboratory Results - last 48 hr 10/26/23 07:52 Total Bilirubin 1.4 H Direct Bilirubin 0.5 AST 37 ALT 24 Alkaline Phosphatase 47 Total Protein 6.5 Albumin 3.6 Vitamin B12 424 Imaging Radiology Impressions: ITS Impressions Head CT 10/21/23 10:27 IMPRESSION: No acute intracranial hemorrhage or territorial loss of clark-white differentiation. Medications Medications Current Medications Acetaminophen (Acetaminophen 325 Mg Tablet) 650 mg PO Q6H PRN PRN Reason: Headache/Pain Mild Scale (1-3) Al Hydroxide/Mg Hydroxide (Magnesium Hydrox/Alum Hydrox 30 Ml Oral.Susp) 30 ml PO Q6H PRN PRN Reason: Heartburn/Nausea Amlodipine Besylate (Amlodipine Besylate 2.5 Mg Tablet) 2.5 mg PO DAILY [facility]; Protocol Last Admin: 10/26/23 09:11 Dose: 2.5 mg Apixaban (Apixaban 5 Mg Tablet) 5 mg PO BID [facility] Last Admin: 10/26/23 10:30 Dose: 5 mg Famotidine (Famotidine 20 Mg Tablet) 40 mg PO [id number]@0900 [facility] Last Admin: 10/26/23 10:32 Dose: 40 mg Haloperidol (Haloperidol 1 Mg Tablet) 1 mg PO Q4H PRN PRN Reason: Psychosis Last Admin: 10/22/23 16:44 Dose: 1 mg Haloperidol (Haloperidol 1 Mg Tablet) 1 mg PO BEDTIME [facility] Last Admin: 10/25/23 20:18 Dose: 1 mg Haloperidol (Haloperidol 0.5 Mg Tablet) 0.5 mg PO DAILY [facility] Last Admin: 10/26/23 09:11 Dose: 0.5 mg Hydroxyzine HCl (Hydroxyzine Hcl 25 Mg Tablet) 25 mg PO Q6H PRN PRN Reason: Anxiety Isosorbide Mononitrate (Isosorbide Mononitrate 30 Mg Tab.Er.24h) 30 mg PO DAILY [facility]; Protocol Last Admin: 10/26/23 09:11 Dose: 30 mg Lisinopril (Lisinopril 10 Mg Tablet) 10 mg PO DAILY [facility]; Protocol Last Admin: 10/26/23 09:11 Dose: 10 mg Magnesium Hydroxide (Milk Of Magnesia 30 Ml Oral.Susp) 30 ml PO DAILY PRN PRN Reason: Constipation Last Admin: 10/20/23 21:41 Dose: 30 ml Memantine (Memantine Hcl 5 Mg Tablet) 5 mg PO BID [facility] Last Admin: 10/26/23 09:12 Dose: 5 mg Metoprolol Tartrate (Metoprolol Tartrate 25 Mg Tablet) 25 mg PO BID [facility]; Protocol Last Admin: 10/26/23 09:11 Dose: 25 mg Quetiapine Fumarate (Quetiapine Fumarate 25 Mg Tablet) 25 mg PO BEDTIME [facility] Last Admin: 10/25/23 20:19 Dose: 25 mg Trazodone HCl (Trazodone Hcl 50 Mg Tablet) 50 mg PO BEDTIME MRX1 PRN PRN Reason: Insomnia Last Admin: 10/24/23 20:33 Dose: 50 mg Vitamin D (Cholecalciferol (Vitamin D3) 25 Mcg Tablet) 25 mcg PO DAILY [facility] Last Admin: 10/26/23 09:11 Dose: 25 mcg Allergies Allergies Allergy/AdvReac Type Severity Reaction Status Date / Time No Known Allergies Allergy Verified 10/19/23 15:28 Assessment & Plan Assessment & Plan (1) Persistent atrial fibrillation: Status: Acute Code(s): I48.19 - Other persistent atrial fibrillation (2) CAD (coronary artery disease): Qualifiers: Associated angina: with unstable angina Coronary Disease-Associated Artery/Lesion type: unspecified vessel or lesion type [place] vs. transplanted heart: [place] heart Qualified Code(s): I25.110 - Atherosclerotic heart disease of [place] coronary artery with unstable angina pectoris Status: Acute Code(s): I25.10 - Atherosclerotic heart disease of [place] coronary artery without angina pectoris (3) HTN (hypertension): Status: Acute Code(s): I10 - Essential (primary) hypertension (4) Hyperlipidemia: Status: Acute Code(s): E78.5 - Hyperlipidemia, unspecified (5) Psychosis: Status: Acute Code(s): F29 - Unspecified psychosis not due to a substance or known physiological condition Plan The patient is an 83-year-old male with a prior history of CAD, HTN, atrial fibrillation and other medical comorbidities with no prior psychiatric illness referred to the emergency room for the onset of psychosis. Also there is no report of a possible cognitive impairment. At the moment of the interview the patient denies new symptoms he is pleasant cooperative and he is willing to follow treatment. Plan 1. Gather collateral information. The patient is willing to give us permission to talk with his and family. 2. Continue with regular medical treatment. 3. Continue medical workout. 4. Reassessment with results. 5. [address] scan without contrast today. 7. Occupational therapist did a [place] he scored 50/30 and the Hasmukh test he scored 3.2. 8. Start Haldol 1 mg p.o. q.h.s. and 0.5 in the morning. 9. Start Namenda 5 mg p.o. daily. On October 26 we increased to 5 mg p.o. b.i.d. 10. Blood work for Thursday and it came back normal. Reason for continued inpatient stay Substantial Risk for: inability to function, rapid decompensation and med/psych decompensation Time Spent With Patient Time: Total time managing care of this patient today __20__ minutes.
--- NOTE | 2023-10-26 14:56 | PC.NURSE ---
three day notice offered to patient and was rejected.
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
[2023-10-26 18:00] VITALS: BP 114/55; PULSE 74; RESP 16; TEMP 35.7; O2SAT 96
[2023-10-26] MEDS: HaloperidoL 1 MG TABLET PO (20:31)
[2023-10-26] MEDS: traZODone HCL 50 MG TABLET PO (20:32)
[2023-10-26] MEDS: hydrOXYzine HCL 25 MG TABLET PO (20:32)
[2023-10-26] MEDS: QUEtiapine Fumarate 25 MG TABLET PO (20:32)
[2023-10-27 08:25] VITALS: BP 100/65; PULSE 74; RESP 16; TEMP 36.4; O2SAT 95
--- NOTE | 2023-10-27 10:48 | P.PNPSI_ITS ---
Subjective Subjective Date of Service: 10/27/23 Reason For Visit: AMS Subjective Notes: Conditional Voluntary Interim History: The nursing staff reported the patient has verbalized anger against his since he is here. He had being paranoid stating that his medications are poisoned. Today I had a conversation with his daughter explained that we need to titrate up the Haldol and avoid side effects. On interview the patient remains paranoid but redirectable. Mental Status Exam Mental Status Exam Patient Appearance: Well Grooomed and Appropriate Patient Orientation: Person and Situation Level of Consciousness: Awake Patient Behavior: Guarded Mood Description: Withdrawn Affect Description: Constricted Patient Cognition Impaired: Yes Ability to Follow Directions: Good Speech Pattern: Clear Hallucinations: None Delusions: Paranoid Ideation Thought Process: Evasive and Slowed Thinking Thought Content: positive for [place] and positive for Loose Associations Judgement: Poor Diagnostics Vital Signs (24Hr): Vital Signs - 24 hr 10/26/23 18:00 10/27/23 08:25 Temperature 96.3 F L 97.6 F Pulse Rate 74 74 Respiratory Rate 16 16 Blood Pressure 114/55 L 100/65 Pulse Oximetry 96 95 Oxygen Delivery Method Room Air Room Air BMI result Body Mass Index 20.2 Labs 10/19/23 16:01 10/21/23 08:14 Labs: Laboratory Results - last 48 hr 10/26/23 07:52 Total Bilirubin 1.4 H Direct Bilirubin 0.5 AST 37 ALT 24 Alkaline Phosphatase 47 Total Protein 6.5 Albumin 3.6 Vitamin B12 424 Imaging Radiology Impressions: ITS Impressions Head CT 10/21/23 10:27 IMPRESSION: No acute intracranial hemorrhage or territorial loss of clark-white differentiation. Medications Medications Current Medications Acetaminophen (Acetaminophen 325 Mg Tablet) 650 mg PO Q6H PRN PRN Reason: Headache/Pain Mild Scale (1-3) Al Hydroxide/Mg Hydroxide (Magnesium Hydrox/Alum Hydrox 30 Ml Oral.Susp) 30 ml PO Q6H PRN PRN Reason: Heartburn/Nausea Amlodipine Besylate (Amlodipine Besylate 2.5 Mg Tablet) 2.5 mg PO DAILY [facility]; Protocol Last Admin: 10/27/23 09:48 Dose: Not Given Apixaban (Apixaban 5 Mg Tablet) 5 mg PO BID [facility] Last Admin: 10/27/23 09:48 Dose: Not Given Famotidine (Famotidine 20 Mg Tablet) 40 mg PO MoWeSa@00 [facility] Last Admin: 10/26/23 10:32 Dose: 40 mg Haloperidol (Haloperidol 1 Mg Tablet) 1 mg PO Q4H PRN PRN Reason: Psychosis Last Admin: 10/22/23 16:44 Dose: 1 mg Haloperidol (Haloperidol 1 Mg Tablet) 1 mg PO BEDTIME [facility] Last Admin: 10/26/23 20:31 Dose: 1 mg Haloperidol (Haloperidol 0.5 Mg Tablet) 0.5 mg PO BID@0830,1330 [facility] Hydroxyzine HCl (Hydroxyzine Hcl 25 Mg Tablet) 25 mg PO Q6H PRN PRN Reason: Anxiety Last Admin: 10/26/23 20:32 Dose: 25 mg Isosorbide Mononitrate (Isosorbide Mononitrate 30 Mg Tab.Er.24h) 30 mg PO DAILY [facility]; Protocol Last Admin: 10/27/23 09:49 Dose: Not Given Lisinopril (Lisinopril 10 Mg Tablet) 10 mg PO DAILY [facility]; Protocol Last Admin: 10/27/23 09:49 Dose: Not Given Magnesium Hydroxide (Milk Of Magnesia 30 Ml Oral.Susp) 30 ml PO DAILY PRN PRN Reason: Constipation Last Admin: 10/20/23 21:41 Dose: 30 ml Memantine (Memantine Hcl 5 Mg Tablet) 5 mg PO BID [facility] Last Admin: 10/27/23 09:50 Dose: Not Given Metoprolol Tartrate (Metoprolol Tartrate 25 Mg Tablet) 25 mg PO BID [facility]; Protocol Last Admin: 10/27/23 09:50 Dose: Not Given Quetiapine Fumarate (Quetiapine Fumarate 25 Mg Tablet) 25 mg PO BEDTIME [facility] Last Admin: 10/26/23 20:32 Dose: 25 mg Trazodone HCl (Trazodone Hcl 50 Mg Tablet) 50 mg PO BEDTIME MRX1 PRN PRN Reason: Insomnia Last Admin: 10/26/23 20:32 Dose: 50 mg Vitamin D (Cholecalciferol (Vitamin D3) 25 Mcg Tablet) 25 mcg PO DAILY [facility] Last Admin: 10/27/23 09:48 Dose: Not Given Allergies Allergies Allergy/AdvReac Type Severity Reaction Status Date / Time No Known Allergies Allergy Verified 10/19/23 15:28 Assessment & Plan Assessment & Plan (1) Persistent atrial fibrillation: Status: Acute Code(s): I48.19 - Other persistent atrial fibrillation (2) CAD (coronary artery disease): Qualifiers: Associated angina: with unstable angina Coronary Disease-Associated Artery/Lesion type: unspecified vessel or lesion type [place] vs. transplanted heart: [place] heart Qualified Code(s): I25.110 - Atherosclerotic heart disease of [place] coronary artery with unstable angina pectoris Status: Acute Code(s): I25.10 - Atherosclerotic heart disease of [place] coronary artery without angina pectoris (3) HTN (hypertension): Status: Acute Code(s): I10 - Essential (primary) hypertension (4) Hyperlipidemia: Status: Acute Code(s): E78.5 - Hyperlipidemia, unspecified (5) Psychosis: Status: Acute Code(s): F29 - Unspecified psychosis not due to a substance or known physiological condition Plan The patient is an 83-year-old male with a prior history of CAD, HTN, atrial fibrillation and other medical comorbidities with no prior psychiatric illness referred to the emergency room for the onset of psychosis. Also there is no report of a possible cognitive impairment. At the moment of the interview the patient denies new symptoms he is pleasant cooperative and he is willing to follow treatment. Plan 1. Gather collateral information. The patient is willing to give us permission to talk with his and family. 2. Continue with regular medical treatment. 3. Continue medical workout. 4. Reassessment with results. 5. [address] scan without contrast today. 7. Occupational therapist did a [place] he scored 50/30 and the Hasmukh test he scored 3.2. 8. Start Haldol 1 mg p.o. q.h.s. and 0.5 in the morning. On October 27 we increased to 0.5 p.o. b.i.d. and 1 mg p.o. q.h.s. total dose of 2 mg a day 9. Start Namenda 5 mg p.o. daily. On October 26 we increased to 5 mg p.o. b.i.d. 10. Blood work for Thursday and it came back normal. Reason for continued inpatient stay Substantial Risk for: inability to function, rapid decompensation and med/psych decompensation Time Spent With Patient Time: Total time managing care of this patient today __20__ minutes.
[2023-10-27] MEDS: Memantine HCl 5 MG TABLET PO (11:25)
[2023-10-27] MEDS: HaloperidoL 0.5 MG TABLET PO ×2 (11:26→11:29)
[2023-10-27] MEDS: Apixaban 5 MG TABLET PO ×2 (11:28→20:36)
[2023-10-27 18:00] VITALS: PULSE 90; RESP 18; TEMP 36.6; O2SAT 97
[2023-10-27] MEDS: Metoprolol Tartrate 25 MG TABLET PO (20:37)
[2023-10-27] MEDS: traZODone HCL 50 MG TABLET PO (20:37)
[2023-10-27] MEDS: HaloperidoL 1 MG TABLET PO (20:37)
[2023-10-27] MEDS: QUEtiapine Fumarate 25 MG TABLET PO (20:37)
[2023-10-28 09:00] VITALS: BP 95/60; RESP 18; TEMP 36.7; O2SAT 95
[2023-10-28] MEDS: Memantine HCl 5 MG TABLET PO ×2 (11:05→21:10)
[2023-10-28] MEDS: Cholecalciferol (Vitamin D3) 25 MCG TABLET PO (11:05)
[2023-10-28] MEDS: Apixaban 5 MG TABLET PO ×2 (11:06→21:10)
[2023-10-28] MEDS: Famotidine 20 MG TABLET 40 MG PO (11:09)
--- NOTE | 2023-10-28 12:41 | HO.PSYCHPN ---
Subjective Subjective Date of Service: 10/28/23 Reason For Visit: AMS Subjective Notes: Conditional Voluntary Interim History: The nursing staff reported the patient refused his medication in the morning yesterday but later took the medications in the evening. He had been hyperverbal, confused at times but easily redirectable. The health and social care teacher reported that the family seeking information of the healthcare proxy and we did already the [place]. On interview the patient denies new symptoms he looks pleasantly confused, easily redirectable. No insight into his condition. Mental Status Exam Mental Status Exam Patient Appearance: Appropriate Patient Orientation: Person Level of Consciousness: Awake Patient Behavior: Guarded Mood Description: Labile Affect Description: Calm Patient Cognition Impaired: Yes Ability to Follow Directions: Fair Speech Pattern: Clear Hallucinations: None Delusions: Paranoid Ideation and Ideas of Reference Thought Process: Distracted and Slowed Thinking Thought Content: positive for [place] and positive for Poverty of Content Judgement: Poor Diagnostics Vital Signs (24Hr): Vital Signs - 24 hr 10/27/23 18:00 Temperature 98 F Pulse Rate 90 Respiratory Rate 18 Pulse Oximetry 97 Oxygen Delivery Method Room Air BMI result Body Mass Index 20.2 Labs 10/19/23 16:01 10/21/23 08:14 Imaging Radiology Impressions: ITS Impressions Head CT 10/21/23 10:27 IMPRESSION: No acute intracranial hemorrhage or territorial loss of clark-white differentiation. Medications Medications Current Medications Acetaminophen (Acetaminophen 325 Mg Tablet) 650 mg PO Q6H PRN PRN Reason: Headache/Pain Mild Scale (1-3) Al Hydroxide/Mg Hydroxide (Magnesium Hydrox/Alum Hydrox 30 Ml Oral.Susp) 30 ml PO Q6H PRN PRN Reason: Heartburn/Nausea Amlodipine Besylate (Amlodipine Besylate 2.5 Mg Tablet) 2.5 mg PO DAILY [facility]; Protocol Last Admin: 10/28/23 11:14 Dose: Not Given Apixaban (Apixaban 5 Mg Tablet) 5 mg PO BID [facility] Last Admin: 10/28/23 11:06 Dose: 5 mg Famotidine (Famotidine 20 Mg Tablet) 40 mg PO MoWeSa@0900 [facility] Last Admin: 10/28/23 11:09 Dose: 40 mg Haloperidol (Haloperidol 1 Mg Tablet) 1 mg PO Q4H PRN PRN Reason: Psychosis Last Admin: 10/22/23 16:44 Dose: 1 mg Haloperidol (Haloperidol 1 Mg Tablet) 1 mg PO BEDTIME [facility] Last Admin: 10/27/23 20:37 Dose: 1 mg Haloperidol (Haloperidol 0.5 Mg Tablet) 0.5 mg PO BID@0830,1330 [facility] Last Admin: 10/27/23 11:26 Dose: 0.5 mg Hydroxyzine HCl (Hydroxyzine Hcl 25 Mg Tablet) 25 mg PO Q6H PRN PRN Reason: Anxiety Last Admin: 10/26/23 20:32 Dose: 25 mg Isosorbide Mononitrate (Isosorbide Mononitrate 30 Mg Tab.Er.24h) 30 mg PO DAILY [facility]; Protocol Last Admin: 10/28/23 11:14 Dose: Not Given Lisinopril (Lisinopril 10 Mg Tablet) 10 mg PO DAILY [facility]; Protocol Last Admin: 10/28/23 11:14 Dose: Not Given Magnesium Hydroxide (Milk Of Magnesia 30 Ml Oral.Susp) 30 ml PO DAILY PRN PRN Reason: Constipation Last Admin: 10/20/23 21:41 Dose: 30 ml Memantine (Memantine Hcl 5 Mg Tablet) 5 mg PO BID [facility] Last Admin: 10/28/23 11:05 Dose: 5 mg Metoprolol Tartrate (Metoprolol Tartrate 25 Mg Tablet) 25 mg PO BID [facility]; Protocol Last Admin: 10/28/23 11:15 Dose: Not Given Quetiapine Fumarate (Quetiapine Fumarate 25 Mg Tablet) 25 mg PO BEDTIME [facility] Last Admin: 10/27/23 20:37 Dose: 25 mg Trazodone HCl (Trazodone Hcl 50 Mg Tablet) 50 mg PO BEDTIME MRX1 PRN PRN Reason: Insomnia Last Admin: 10/27/23 20:37 Dose: 50 mg Vitamin D (Cholecalciferol (Vitamin D3) 25 Mcg Tablet) 25 mcg PO DAILY [facility] Last Admin: 10/28/23 11:05 Dose: 25 mcg Allergies Allergies Allergy/AdvReac Type Severity Reaction Status Date / Time No Known Allergies Allergy Verified 10/19/23 15:28 Assessment & Plan Assessment & Plan (1) Persistent atrial fibrillation: Status: Acute Code(s): I48.19 - Other persistent atrial fibrillation (2) CAD (coronary artery disease): Qualifiers: Associated angina: with unstable angina Coronary Disease-Associated Artery/Lesion type: unspecified vessel or lesion type [place] vs. transplanted heart: [place] heart Qualified Code(s): I25.110 - Atherosclerotic heart disease of [place] coronary artery with unstable angina pectoris Status: Acute Code(s): I25.10 - Atherosclerotic heart disease of [place] coronary artery without angina pectoris (3) HTN (hypertension): Status: Acute Code(s): I10 - Essential (primary) hypertension (4) Hyperlipidemia: Status: Acute Code(s): E78.5 - Hyperlipidemia, unspecified (5) Psychosis: Status: Acute Code(s): F29 - Unspecified psychosis not due to a substance or known physiological condition Plan The patient is an 83-year-old male with a prior history of CAD, HTN, atrial fibrillation and other medical comorbidities with no prior psychiatric illness referred to the emergency room for the onset of psychosis. Also there is no report of a possible cognitive impairment. At the moment of the interview the patient denies new symptoms he is pleasant cooperative and he is willing to follow treatment. Plan 1. Gather collateral information. The patient is willing to give us permission to talk with his and family. 2. Continue with regular medical treatment. 3. Continue medical workout. 4. Reassessment with results. 5. [address] scan without contrast today. 7. Occupational therapist did a [place] he scored 50/30 and the Hasmukh test he scored 3.2. 8. Start Haldol 1 mg p.o. q.h.s. and 0.5 in the morning. On October 27 we increased to 0.5 p.o. b.i.d. and 1 mg p.o. q.h.s. total dose of 2 mg a day 9. Start Namenda 5 mg p.o. daily. On October 26 we increased to 5 mg p.o. b.i.d. 10. Blood work for Thursday and it came back normal. Reason for continued inpatient stay Substantial Risk for: inability to function, rapid decompensation and med/psych decompensation Time Spent With Patient Time: Total time managing care of this patient today __20__ minutes.
--- NOTE | 2023-10-28 13:41 | MHC.CLN ---
NUTRITION ALERTED BY STAFF THAT PATIENT NOT EATING WELL. ADDING MAGIC CUP BID (580 KCALS, 18 G PROTEIN) TO PROMOTE NUTRITIONAL INTAKE. RD TO FOLLOW UP WEEKLY.
[2023-10-28] MEDS: HaloperidoL 0.5 MG TABLET PO (15:51)
[2023-10-28 18:00] VITALS: BP 142/66; PULSE 59; RESP 18; TEMP 36.6; O2SAT 98
[2023-10-28] MEDS: Metoprolol Tartrate 25 MG TABLET PO (21:10)
[2023-10-28] MEDS: HaloperidoL 1 MG TABLET PO (21:10)
[2023-10-28] MEDS: QUEtiapine Fumarate 25 MG TABLET PO (21:10)
[2023-10-28 22:14] VITALS: BP 125/85; PULSE 85
[2023-10-29 06:00] VITALS: BP 117/79; PULSE 75; RESP 16; TEMP 36.7; O2SAT 97
[2023-10-29 07:00] VITALS: BMI 19.2
[2023-10-29 09:40] VITALS: BP 111/55; PULSE 108; RESP 14; TEMP 36.4
--- NOTE | 2023-10-29 10:15 | ECG_ITS ---
Test Reason : IRREG HR Blood Pressure : / mmHG Vent. Rate : 101 BPM Atrial Rate : 000 BPM P-R Int : 000 ms QRS Dur : 094 ms QT Int : 332 ms P-R-T Axes : 000 016 059 degrees QTc Int : 430 ms Atrial fibrillation with rapid ventricular response Abnormal ECG When compared with ECG of 23-OCT-2023 09:54, No significant change was found Referred By: Rigoberto Lea Electronically Signed By:DILIP VAZQUEZ MD
[2023-10-29 10:44] LABS: Glucose, Whole Blood 110 mg/dL (60-115)
[2023-10-29 11:00] VITALS: BP 133/88; PULSE 78; RESP 14; TEMP 36.8; O2SAT 97
--- NOTE | 2023-10-29 11:53 | P.EN_ITS ---
Event Note Date of Service: 10/29/23 Event Note: Patient is an 83-year-old male PMH significant for HLD/CAD, carotid artery stenosis with bilateral stents in place, chronic AFib on Eliquis, and HTN admitted to [facility] for recent onset of visual hallucinations, paranoia, and disorganized behavior. Medical consult for somnolence, weakness, and lethargy. Nursing staff report pt experienced abnormal and prolonged drowsiness and lethargy this morning. Patient went back to bed this morning after brushing teeth and getting dressed, which is not normal for him. When staff attempted to get him up for breakfast patient once unable to stand and support himself, and immediately went back to sleep. Patient's came to see him and he was unable to stay awake during visit, which is again abnormal. Patient's mentation appeared to be around baseline. Patient's extremities apparently felt cold, and an O2 sat was unable to be obtained from pulse ox. Patient was placed on 2 L NC. Of note, patient yesterday received an extra dose of 0.5 mg Haldol for total of 2 mg daily. Upon interview and exam, patient appeared close to baseline. Easily arousable to verbal stimuli. Mentation appeared baseline. Confused at baseline, but answering appropriately. No focal deficits noted. Patient was able to lean forward on his own, had preserved strength bilaterally of upper and lower extremities. Lungs CTA. Vitals reviewed, patient is normotensive with BP of 78, respirations 14, afebrile, and satting at 97% on 2 L NC. EKG reviewed, showing AFib with HR of 101, but no evidence of ST elevations or depressions; no significant changes noted from prior EKGs. Will check CBC, CMP, UA, CXR, and flu and COVID. Low concern for stroke as patient is on Eliquis and no focal deficits noted upon examination. No further workup for stroke indicated at this time. Attending: Dr. Carter Time Spent With Patient Time: Total time managing care of this patient today ____ minutes.
[2023-10-29 12:19] LABS: Appearance Urine Clear; Color Urine Dark Yellow; Glucose Urine UA Negative (Negative); Leukocyte Esterase Urine Negative (Negative); Nitrite Urine Negative (Negative); Specific Gravity - Urine 1.025 (1.005-1.025); Urine Blood Negative (Negative); Urine Ketones Trace mg/dL (Negative); Urine Protein Negative (Neg-Trace)
[2023-10-29 12:26] LABS: COVID-19 Test Negative (Negative); IDNOW Serial# 152EDE1D
[2023-10-29 12:59] LABS: MANUAL DIFF FLAG NO
[2023-10-29 13:02] LABS: Basophils Absolute Auto 0.1 X10*3/uL (0.0-0.2); Basophils Percent Auto 0.7 % (0-2); Eosinophils Absolute Auto 0.1 X10*3/uL (0.0-0.4); Eosinophils Percent Auto 1.2 % (0-4); Hematocrit 55.6 % (42.0-52.0); Hemoglobin 18.9 g/dl (14.0-18.0); Imm Gran Abs Auto 0.02 X10*3/uL (0.00-0.03); Imm Gran Pct Auto 0.2 % (0.0-0.4); Lymphocytes Absolute Auto 1.6 X10*3/uL (1.2-4.9); Lymphocytes Percent Auto 19.5 % (20-40); Mean Corpuscular Hemoglobin 31.7 pg (27.0-33.0); Mean Corpuscular Volume 93.1 fL (80.0-98.0); Mean Platelet Volume 10.1 fL (9.4-12.4); Monocytes Absolute Auto 0.6 X10*3/uL (0.1-1.2); Monocytes Percent Auto 7.8 % (2-11); Neutrophils Absolute Auto 5.8 x10*3/uL (2.0-8.3); Neutrophils Percent Auto 70.6 % (45-73); Platelet Count 241 X10*3/uL (160-400); Red Blood Count 5.97 X10*6/uL (4.60-5.80); Red Cell Distribution Width 13.1 % (11.0-16.0); White Blood Count 8.2 X10*3/uL (4.8-10.8)
[2023-10-29 13:19] LABS: Alanine Aminotransferase 24 U/L (0-40); Alkaline Phosphatase 59 U/L (39-117); Anion Gap 14 (12-20); Aspartate Amino Transferase 27 U/L (5-37); Bilirubin Total 1.3 mg/dL (0.0-1.0); Blood Urea Nitrogen 43 mg/dL (9-16); Calcium 10.3 mg/dL (8.4-10.2); Carbon Dioxide 29 mmol/L (22-29); Chloride 105 mmol/L (96-108); Estimated Glomerular Filt Rate 46; Glucose Random 180 mg/dL (60-115); Potassium 4.5 mmol/L (3.3-5.1); Sodium 143 mmol/L (135-145); Total Protein 7.6 g/dL (6.5-8.0)
--- NOTE | 2023-10-29 14:41 | P.PNPSI_ITS ---
Subjective Subjective Date of Service: 10/29/23 Reason For Visit: AMS Subjective Notes: Conditional Voluntary Interim History: Nursing staff reported that his blood pressure medications were held because he was sleepy in the morning. He slept well last night 6 hours and he was slightly irritable but easily redirectable. After breakfast the patient become unresponsive he responded only to painful stimuli. I order blood work EKG and chest x-ray the came back normal on the only abnormality was creatinine slightly elevated. The hospitalist team was aware. Later on he was awake and he was encouraged to take p.o. liquids. Mental Status Exam Mental Status Exam Patient Appearance: Well Grooomed Patient Orientation: Person Level of Consciousness: Awake Patient Behavior: Guarded and Passive Mood Description: Calm and Withdrawn Affect Description: Constricted Patient Cognition Impaired: Yes Ability to Follow Directions: Good Speech Pattern: Clear Hallucinations: None Delusions: Ideas of Reference Thought Process: Distracted and Slowed Thinking Thought Content: positive for [place] and positive for Poverty of Content Judgement: Poor Diagnostics Vital Signs (24Hr): Vital Signs - 24 hr 10/28/23 18:00 10/28/23 22:14 10/29/23 06:00 Temperature 97.8 F 98.1 F Pulse Rate 59 85 75 Respiratory Rate 18 16 Blood Pressure 142/66 H 125/85 117/79 Pulse Oximetry 98 97 Oxygen Delivery Method Room Air Room Air Oxygen Flow Rate 10/29/23 09:40 10/29/23 11:00 Temperature 97.6 F 98.2 F Pulse Rate 108 H 78 Respiratory Rate 14 14 Blood Pressure 111/55 L 133/88 Pulse Oximetry 97 Oxygen Delivery Method Nasal Cannula Oxygen Flow Rate 2 BMI result Body Mass Index 19.2 Labs 10/29/23 12:59 10/29/23 12:50 Labs: Laboratory Results - last 48 hr 10/29/23 10/29/23 10/29/23 10:38 11:40 12:00 WBC RBC Hgb Hct MCV MCH MCHC RDW Plt Count MPV Immature Gran % (Auto) Neut % (Auto) Lymph % (Auto) [place] % (Auto) Eos % (Auto) Baso % (Auto) Lymph # (Auto) [place] # (Auto) Eos # (Auto) Baso # (Auto) Abs Immat Gran (auto) Absolute Neuts (auto) Absolute Nucleated RBC Nucleated RBC % (auto) Sodium Potassium Chloride Carbon Dioxide Anion Gap BUN Creatinine Estim Creat Clear Calc Estimated GFR POC Glucose 110 Random Glucose Calcium Total Bilirubin AST ALT Alkaline Phosphatase Total Creatine Kinase Total Protein Albumin Urine Color Dark Yellow Urine Appearance Clear Urine pH 5.0 Ur Specific [place] 1.025 Urine Protein Negative Urine Glucose (UA) Negative Urine Ketones Trace Urine Blood Negative Urine Nitrite Negative Ur Leukocyte Esterase Negative COVID-19 (FER) Negative COVID-19 Clin Com See Note 10/29/23 10/29/23 12:50 12:59 WBC 8.2 RBC 5.97 H Hgb 18.9 H Hct 55.6 H MCV 93.1 MCH 31.7 MCHC 34.0 RDW 13.1 Plt Count 241 D MPV 10.1 Immature Gran % (Auto) 0.2 Neut % (Auto) 70.6 Lymph % (Auto) 19.5 L [place]cd[place] % (Auto) 7.8 Eos % (Auto) 1.2 Baso % (Auto) 0.7 Lymph # (Auto) 1.6 [place] # (Auto) 0.6 Eos # (Auto) 0.1 Baso # (Auto) 0.1 Abs Immat Gran (auto) 0.02 Absolute Neuts (auto) 5.8 Absolute Nucleated RBC 0.000 Nucleated RBC % (auto) 0.0 Sodium 143 Potassium 4.5 Chloride 105 Carbon Dioxide 29 Anion Gap 14 BUN 43 H Creatinine 1.45 H Estim Creat Clear Calc 31.0 Estimated GFR 46 POC Glucose Random Glucose 180 H Calcium 10.3 H Total Bilirubin 1.3 H AST 27 ALT 24 Alkaline Phosphatase 59 Total Creatine Kinase 127 Total Protein 7.6 Albumin 4.0 Urine Color Urine Appearance Urine pH Ur Specific [place] Urine Protein Urine Glucose (UA) Urine Ketones Urine Blood Urine Nitrite Ur Leukocyte Esterase COVID-19 (FER) COVID-19 Clin Com Imaging Radiology Impressions: ITS Impressions Head CT 10/21/23 10:27 IMPRESSION: No acute intracranial hemorrhage or territorial loss of clark-white differentiation. Chest X-Ray 10/29/23 11:15 IMPRESSION: Unremarkable examination. Medications Medications Current Medications Acetaminophen (Acetaminophen 325 Mg Tablet) 650 mg PO Q6H PRN PRN Reason: Headache/Pain Mild Scale (1-3) Al Hydroxide/Mg Hydroxide (Magnesium Hydrox/Alum Hydrox 30 Ml Oral.Susp) 30 ml PO Q6H PRN PRN Reason: Heartburn/Nausea Amlodipine Besylate (Amlodipine Besylate 2.5 Mg Tablet) 2.5 mg PO DAILY [facility]; Protocol Last Admin: 10/29/23 12:19 Dose: Not Given Apixaban (Apixaban 5 Mg Tablet) 5 mg PO BID [facility] Last Admin: 10/29/23 12:19 Dose: Not Given Famotidine (Famotidine 20 Mg Tablet) 40 mg PO MoWeSa@0900 [facility] Last Admin: 10/28/23 11:09 Dose: 40 mg Haloperidol (Haloperidol 1 Mg Tablet) 1 mg PO Q4H PRN PRN Reason: Psychosis Last Admin: 10/22/23 16:44 Dose: 1 mg Haloperidol (Haloperidol 1 Mg Tablet) 1 mg PO BEDTIME [facility] Last Admin: 10/28/23 21:10 Dose: 1 mg Haloperidol (Haloperidol 0.5 Mg Tablet) 0.5 mg PO BID@0830,1330 [facility] Last Admin: 10/29/23 12:54 Dose: Not Given Hydroxyzine HCl (Hydroxyzine Hcl 25 Mg Tablet) 25 mg PO Q6H PRN PRN Reason: Anxiety Last Admin: 10/26/23 20:32 Dose: 25 mg Isosorbide Mononitrate (Isosorbide Mononitrate 30 Mg Tab.Er.24h) 30 mg PO DAILY [facility]; Protocol Last Admin: 10/29/23 12:19 Dose: Not Given Lisinopril (Lisinopril 10 Mg Tablet) 10 mg PO DAILY [facility]; Protocol Last Admin: 10/29/23 12:19 Dose: Not Given Magnesium Hydroxide (Milk Of Magnesia 30 Ml Oral.Susp) 30 ml PO DAILY PRN PRN Reason: Constipation Last Admin: 10/20/23 21:41 Dose: 30 ml Memantine (Memantine Hcl 5 Mg Tablet) 5 mg PO BID [facility] Last Admin: 10/29/23 12:19 Dose: Not Given Metoprolol Tartrate (Metoprolol Tartrate 25 Mg Tablet) 25 mg PO BID [facility]; Protocol Last Admin: 10/29/23 12:19 Dose: Not Given Quetiapine Fumarate (Quetiapine Fumarate 25 Mg Tablet) 25 mg PO BEDTIME [facility] Last Admin: 10/28/23 21:10 Dose: 25 mg Trazodone HCl (Trazodone Hcl 50 Mg Tablet) 50 mg PO BEDTIME MRX1 PRN PRN Reason: Insomnia Last Admin: 10/27/23 20:37 Dose: 50 mg Vitamin D (Cholecalciferol (Vitamin D3) 25 Mcg Tablet) 25 mcg PO DAILY [facility] Last Admin: 10/29/23 12:19 Dose: Not Given Allergies Allergies Allergy/AdvReac Type Severity Reaction Status Date / Time No Known Allergies Allergy Verified 10/19/23 15:28 Assessment & Plan Assessment & Plan (1) Persistent atrial fibrillation: Status: Acute Code(s): I48.19 - Other persistent atrial fibrillation (2) CAD (coronary artery disease): Qualifiers: Associated angina: with unstable angina Coronary Disease-Associated Artery/Lesion type: unspecified vessel or lesion type [place] vs. transplanted heart: [place] heart Qualified Code(s): I25.110 - Atherosclerotic heart disease of [place] coronary artery with unstable angina pectoris Status: Acute Code(s): I25.10 - Atherosclerotic heart disease of [place] coronary artery without angina pectoris (3) HTN (hypertension): Status: Acute Code(s): I10 - Essential (primary) hypertension (4) Hyperlipidemia: Status: Acute Code(s): E78.5 - Hyperlipidemia, unspecified (5) Psychosis: Status: Acute Code(s): F29 - Unspecified psychosis not due to a substance or known physiological condition Plan The patient is an 83-year-old male with a prior history of CAD, HTN, atrial fibrillation and other medical comorbidities with no prior psychiatric illness referred to the emergency room for the onset of psychosis. Also there is no report of a possible cognitive impairment. At the moment of the interview the patient denies new symptoms he is pleasant cooperative and he is willing to follow treatment. Plan 1. Gather collateral information. The patient is willing to give us permission to talk with his and family. 2. Continue with regular medical treatment. 3. Continue medical workout. 4. Reassessment with results. 5. [address] scan without contrast today. 7. Occupational therapist did a [place] he scored 50/30 and the Hasmukh test he scored 3.2. 8. Start Haldol 1 mg p.o. q.h.s. and 0.5 in the morning. On October 27 we increased to 0.5 p.o. b.i.d. and 1 mg p.o. q.h.s. total dose of 2 mg a day 9. Start Namenda 5 mg p.o. daily. On October 26 we increased to 5 mg p.o. b.i.d. 10. Blood work for Thursday and it came back normal. 11. We did a full medical workout on October 29 after he was unresponsive came back with creatinine slightly elevated. Reason for continued inpatient stay Substantial Risk for: inability to function, rapid decompensation and med/psych decompensation Time Spent With Patient Time: Total time managing care of this patient today __20__ minutes.
--- NOTE | 2023-10-29 16:41 | PC.NURSE ---
At approximately 0930 TW and an [facility] were attempting to wake patient for visit with his . Patient had been up earlier and changed clothes and did am care and went back to sleep. Patient did not come out for breakfast. Patient also refused am meds. Patient vitals were stable when taken early in the shift. When moving from room to sensory room for visit patient with assist of 2 became extremely fatigued and unable to bear weight. He was seated in sensory room and vitals were immediately taken. BP 111/55,HR 108,R 14.Unable to obtain O2 saturation due to patient hands and feed being too cold. BS 110. Provider notified and was with patient within minutes. EKG, Chest X, Blood work and UA ordered as well as hospitalist consult. Patient assisted back to bed and placed on 2L O2 vis nasal canula. Vitals taken at 1100 BP 133/88, HR 78, R 14. O2 continued to be unable to be obtained. When hospitalist arrived patient was awake, alert and responsive.Patient was able to get out of bed and provide a urine sample. Patient then came out of room and ate lunch interacting with peers appropriately. Following lunch patient had visit from daughter. Patient to receive IV fluids. Family aware of incident. Medications will resume this evening per Dr. Bland.
[2023-10-29] MEDS: 0.9 % Sodium Chloride 1,000 ML 999 ML IV (17:53)
--- NOTE | 2023-10-29 18:54 | PC.NURSE ---
IV fluids finished at 1850. patient tolerated well. #22 G flushed. IV patent.
[2023-10-29 19:40] VITALS: BP 150/67; PULSE 69; RESP 18; TEMP 36.4; O2SAT 100
[2023-10-29] MEDS: Apixaban 5 MG TABLET PO (20:54)
[2023-10-29] MEDS: HaloperidoL 1 MG TABLET PO (20:54)
[2023-10-29] MEDS: Metoprolol Tartrate 25 MG TABLET PO (20:54)
[2023-10-29] MEDS: QUEtiapine Fumarate 25 MG TABLET PO (20:54)
[2023-10-29] MEDS: Memantine HCl 5 MG TABLET PO (20:54)
[2023-10-29] MEDS: 0.9 % Sodium Chloride Flush 3 ML SYRINGE IVFLUSH (20:58)
--- NOTE | 2023-10-30 | ECG_ITS ---
Test Reason : PALPITATIONS Blood Pressure : / mmHG Vent. Rate : 120 BPM Atrial Rate : 000 BPM P-R Int : 000 ms QRS Dur : 100 ms QT Int : 296 ms P-R-T Axes : 000 -21 089 degrees QTc Int : 418 ms Atrial fibrillation with rapid ventricular response Nonspecific T wave abnormality Abnormal ECG When compared with ECG of 29-OCT-2023 10:12, Nonspecific T wave abnormality now evident in Inferior leads Referred By: Susana Mera Electronically Signed By:DILIP VAZQUEZ MD
[2023-10-30 06:00] VITALS: BP 100/58; PULSE 62; RESP 14; TEMP 36.5
--- NOTE | 2023-10-30 08:40 | HO.PSYCHPN ---
Subjective Subjective Date of Service: 10/30/23 Reason For Visit: AMS Subjective Notes: Conditional Voluntary Interim History: Pt slept most of the night. This morning pt HOTN, reported feeling weak. BP checked initially 106/67, later improve SBP in 120's. repeat CMP showed improvement in renal function after he received IV fluids yesterday. Pt encouraged to maintain hydration. otherwise pt reporting he does not want to be here in the hospital and wants to leave soon. He visited with his . Medication Compliance: Yes Review of Systems Review of Systems Constitutional: No Fever, No Chills, No Fatigue, No Malaise ENT/Mouth:No Ear Pain, No sore throat, No Rhinorrhea, No Swallowing Difficulty Cardiovascular: No Chest Pain, No SOB, No Palpitations Respiratory: No Cough, No Dyspnea Gastrointestinal: No Nausea, No Vomiting, No Diarrhea, No Constipation, No Abdominal pain Musculoskeletal: No joint pain, No Myalgias, No Joint Swelling Skin: No Skin Lesions, No rash Neuro: No Weakness Psych: No Anxiety/Panic, No Depression, No SI/HI, +AH/VH, No Social Issues Yes all other systems are reviewed and are negative Constitutional: Reports as per HPI Mental Status Exam Mental Status Exam Patient Appearance: Well Grooomed Patient Orientation: Person Level of Consciousness: Awake Patient Behavior: Guarded and Passive Mood Description: Calm and Withdrawn Affect Description: Constricted Patient Cognition Impaired: Yes Ability to Follow Directions: Good Speech Pattern: Clear Diagnostics Vital Signs (24Hr): Vital Signs - 24 hr 10/29/23 09:40 10/29/23 11:00 10/29/23 19:40 Temperature 97.6 F 98.2 F 97.5 F Pulse Rate 108 H 78 69 Respiratory Rate 14 14 18 Blood Pressure 111/55 L 133/88 150/67 H Pulse Oximetry 97 100 Oxygen Delivery Method Nasal Cannula Room Air Oxygen Flow Rate 2 BMI result Body Mass Index 19.2 Labs 10/30/23 09:48 10/30/23 09:48 Labs: Laboratory Results - last 48 hr 10/29/23 10/29/23 10/29/23 10:38 11:40 12:00 WBC RBC Hgb Hct MCV MCH MCHC RDW Plt Count MPV Immature Gran % (Auto) Neut % (Auto) Lymph % (Auto) [place] % (Auto) Eos % (Auto) Baso % (Auto) Lymph # (Auto) [place] # (Auto) Eos # (Auto) Baso # (Auto) Abs Immat Gran (auto) Absolute Neuts (auto) Absolute Nucleated RBC Nucleated RBC % (auto) Sodium Potassium Chloride Carbon Dioxide Anion Gap BUN Creatinine Estim Creat Clear Calc Estimated GFR POC Glucose 110 Random Glucose Calcium Total Bilirubin AST ALT Alkaline Phosphatase Total Creatine Kinase Total Protein Albumin Urine Color Dark Yellow Urine Appearance Clear Urine pH 5.0 Ur Specific [place] 1.025 Urine Protein Negative Urine Glucose (UA) Negative Urine Ketones Trace Urine Blood Negative Urine Nitrite Negative Ur Leukocyte Esterase Negative COVID-19 (FER) Negative COVID-19 Clin Com See Note 10/29/23 10/29/23 12:50 12:59 WBC 8.2 RBC 5.97 H Hgb 18.9 H Hct 55.6 H MCV 93.1 MCH 31.7 MCHC 34.0 RDW 13.1 Plt Count 241 D MPV 10.1 Immature Gran % (Auto) 0.2 Neut % (Auto) 70.6 Lymph % (Auto) 19.5 L [place] % (Auto) 7.8 Eos % (Auto) 1.2 Baso % (Auto) 0.7 Lymph # (Auto) 1.6 [place] # (Auto) 0.6 Eos # (Auto) 0.1 Baso # (Auto) 0.1 Abs Immat Gran (auto) 0.02 Absolute Neuts (auto) 5.8 Absolute Nucleated RBC 0.000 Nucleated RBC % (auto) 0.0 Sodium 143 Potassium 4.5 Chloride 105 Carbon Dioxide 29 Anion Gap 14 BUN 43 H Creatinine 1.45 H Estim Creat Clear Calc 31.0 Estimated GFR 46 POC Glucose Random Glucose 180 H Calcium 10.3 H Total Bilirubin 1.3 H AST 27 ALT 24 Alkaline Phosphatase 59 Total Creatine Kinase 127 Total Protein 7.6 Albumin 4.0 Urine Color Urine Appearance Urine pH Ur Specific [place] Urine Protein Urine Glucose (UA) Urine Ketones Urine Blood Urine Nitrite Ur Leukocyte Esterase COVID-19 (FER) COVID-19 Clin Com Imaging Radiology Impressions: ITS Impressions Head CT 10/21/23 10:27 IMPRESSION: No acute intracranial hemorrhage or territorial loss of clark-white differentiation. Chest X-Ray 10/29/23 11:15 IMPRESSION: Unremarkable examination. Medications Medications Current Medications Acetaminophen (Acetaminophen 325 Mg Tablet) 650 mg PO Q6H PRN PRN Reason: Headache/Pain Mild Scale (1-3) Al Hydroxide/Mg Hydroxide (Magnesium Hydrox/Alum Hydrox 30 Ml Oral.Susp) 30 ml PO Q6H PRN PRN Reason: Heartburn/Nausea Amlodipine Besylate (Amlodipine Besylate 2.5 Mg Tablet) 2.5 mg PO DAILY [facility]; Protocol Last Admin: 10/29/23 12:19 Dose: Not Given Apixaban (Apixaban 5 Mg Tablet) 5 mg PO BID [facility] Last Admin: 10/29/23 20:54 Dose: 5 mg Famotidine (Famotidine 20 Mg Tablet) 40 mg PO MoWeSa@0900 [facility] Last Admin: 10/28/23 11:09 Dose: 40 mg Haloperidol (Haloperidol 1 Mg Tablet) 1 mg PO Q4H PRN PRN Reason: Psychosis Last Admin: 10/22/23 16:44 Dose: 1 mg Haloperidol (Haloperidol 1 Mg Tablet) 1 mg PO BEDTIME JUAN ANTONIO Last Admin: 10/29/23 20:54 Dose: 1 mg Haloperidol (Haloperidol 0.5 Mg Tablet) 0.5 mg PO BID@0830,1330 [facility] Last Admin: 10/29/23 12:54 Dose: Not Given Hydroxyzine HCl (Hydroxyzine Hcl 25 Mg Tablet) 25 mg PO Q6H PRN PRN Reason: Anxiety Last Admin: 10/26/23 20:32 Dose: 25 mg Isosorbide Mononitrate (Isosorbide Mononitrate 30 Mg Tab.Er.24h) 30 mg PO DAILY [facility]; Protocol Last Admin: 10/29/23 12:19 Dose: Not Given Lisinopril (Lisinopril 10 Mg Tablet) 10 mg PO DAILY [facility]; Protocol Last Admin: 10/29/23 12:19 Dose: Not Given Magnesium Hydroxide (Milk Of Magnesia 30 Ml Oral.Susp) 30 ml PO DAILY PRN PRN Reason: Constipation Last Admin: 10/20/23 21:41 Dose: 30 ml Memantine (Memantine Hcl 5 Mg Tablet) 5 mg PO BID [facility] Last Admin: 10/29/23 20:54 Dose: 5 mg Metoprolol Tartrate (Metoprolol Tartrate 25 Mg Tablet) 25 mg PO BID [facility]; Protocol Last Admin: 10/29/23 20:54 Dose: 25 mg Quetiapine Fumarate (Quetiapine Fumarate 25 Mg Tablet) 25 mg PO BEDTIME [facility] Last Admin: 10/29/23 20:54 Dose: 25 mg Sodium Chloride (0.9 % Sodium Chloride Flush 3 Ml Syringe) 3 ml IVFLUSH QSHIFT [facility] Last Admin: 10/29/23 20:58 Dose: 3 ml Trazodone HCl (Trazodone Hcl 50 Mg Tablet) 50 mg PO BEDTIME MRX1 PRN PRN Reason: Insomnia Last Admin: 10/27/23 20:37 Dose: 50 mg Vitamin D (Cholecalciferol (Vitamin D3) 25 Mcg Tablet) 25 mcg PO DAILY [facility] Last Admin: 10/29/23 12:19 Dose: Not Given Allergies Allergies Allergy/AdvReac Type Severity Reaction Status Date / Time No Known Allergies Allergy Verified 10/19/23 15:28 Assessment & Plan Assessment & Plan (1) Persistent atrial fibrillation: Status: Acute Code(s): I48.19 - Other persistent atrial fibrillation (2) CAD (coronary artery disease): Qualifiers: Associated angina: with unstable angina Coronary Disease-Associated Artery/Lesion type: unspecified vessel or lesion type [place] vs. transplanted heart: [place] heart Qualified Code(s): I25.110 - Atherosclerotic heart disease of [place] coronary artery with unstable angina pectoris Status: Acute Code(s): I25.10 - Atherosclerotic heart disease of [place] coronary artery without angina pectoris (3) HTN (hypertension): Status: Acute Code(s): I10 - Essential (primary) hypertension (4) Hyperlipidemia: Status: Acute Code(s): E78.5 - Hyperlipidemia, unspecified (5) Psychosis: Status: Acute Code(s): F29 - Unspecified psychosis not due to a substance or known physiological condition Plan The patient is an 83-year-old male with a prior history of CAD, HTN, atrial fibrillation and other medical comorbidities with no prior psychiatric illness referred to the emergency room for the onset of psychosis. Also there is no report of a possible cognitive impairment. At the moment of the interview the patient denies new symptoms he is pleasant cooperative and he is willing to follow treatment. Plan 2/2. continue current tx. Reason for continued inpatient stay Substantial Risk for: inability to function Time Spent With Patient Time: Total time managing care of this patient today ____ minutes.
[2023-10-30 09:54] LABS: MANUAL DIFF FLAG NO
[2023-10-30 09:57] LABS: Basophils Absolute Auto 0.1 X10*3/uL (0.0-0.2); Basophils Percent Auto 0.7 % (0-2); Eosinophils Absolute Auto 0.2 X10*3/uL (0.0-0.4); Hemoglobin 17.3 g/dl (14.0-18.0); Imm Gran Abs Auto 0.02 X10*3/uL (0.00-0.03); Imm Gran Pct Auto 0.3 % (0.0-0.4); Lymphocytes Absolute Auto 1.7 X10*3/uL (1.2-4.9); Lymphocytes Percent Auto 23.2 % (20-40); Mean Corpuscular HGB Conc 34.6 g/dl (31.0-36.0); Mean Corpuscular Hemoglobin 32.4 pg (27.0-33.0); Mean Corpuscular Volume 93.6 fL (80.0-98.0); Monocytes Absolute Auto 0.6 X10*3/uL (0.1-1.2); Monocytes Percent Auto 8.1 % (2-11); Neutrophils Absolute Auto 4.9 x10*3/uL (2.0-8.3); Neutrophils Percent Auto 65.7 % (45-73); Platelet Count 195 X10*3/uL (160-400); Red Blood Count 5.34 X10*6/uL (4.60-5.80); Red Cell Distribution Width 13.2 % (11.0-16.0); White Blood Count 7.5 X10*3/uL (4.8-10.8)
[2023-10-30 10:13] LABS: Alanine Aminotransferase 20 U/L (0-40); Albumin Level 3.4 g/dL (3.5-5.0); Alkaline Phosphatase 58 U/L (39-117); Anion Gap 12 (12-20); Aspartate Amino Transferase 22 U/L (5-37); Bilirubin Total 1.3 mg/dL (0.0-1.0); Blood Urea Nitrogen 32 mg/dL (9-16); Calcium 9.4 mg/dL (8.4-10.2); Carbon Dioxide 30 mmol/L (22-29); Chloride 106 mmol/L (96-108); Creatinine Clr Calc Pharmacy 38.1; Estimated Glomerular Filt Rate 59; Glucose Random 156 mg/dL (60-115); Potassium 4.5 mmol/L (3.3-5.1); Sodium 143 mmol/L (135-145); Total Protein 6.4 g/dL (6.5-8.0)
[2023-10-30 10:28] LABS: Prolactin 14.7 ng/mL (2.0-18.0)
[2023-10-30 10:40] VITALS: BP 135/87
[2023-10-30] MEDS: Metoprolol Tartrate 25 MG TABLET PO ×2 (10:52→20:13)
[2023-10-30] MEDS: Apixaban 5 MG TABLET PO ×2 (11:56→20:13)
[2023-10-30] MEDS: 0.9 % Sodium Chloride Flush 3 ML SYRINGE IVFLUSH ×2 (13:26→16:56)
[2023-10-30 13:59] LABS: IDNOW Serial# 6674DD1D; Influenza A Negative (Negative); Influenza B2 Negative (Negative)
[2023-10-30 19:30] VITALS: BP 125/76; PULSE 88; RESP 15; TEMP 35.7; O2SAT 94
[2023-10-30] MEDS: QUEtiapine Fumarate 25 MG TABLET PO (20:13)
[2023-10-30] MEDS: HaloperidoL 1 MG TABLET PO (20:13)
[2023-10-30] MEDS: Memantine HCl 5 MG TABLET PO (20:14)
[2023-10-31 06:00] VITALS: BP 143/74; PULSE 79; O2SAT 97
[2023-10-31 09:11] VITALS: BP 100/58; PULSE 70; RESP 17; O2SAT 97
[2023-10-31] MEDS: 0.9 % Sodium Chloride Flush 3 ML SYRINGE IVFLUSH ×3 (09:21→20:41)
[2023-10-31 09:43] VITALS: BP 112/74; PULSE 86; O2SAT 95
[2023-10-31] MEDS: Apixaban 5 MG TABLET PO ×2 (09:44→20:41)
[2023-10-31] MEDS: Memantine HCl 5 MG TABLET PO ×2 (09:44→20:41)
[2023-10-31] MEDS: Cholecalciferol (Vitamin D3) 25 MCG TABLET PO (09:45)
[2023-10-31] MEDS: HaloperidoL 0.5 MG TABLET PO ×2 (09:45→14:20)
[2023-10-31] MEDS: Isosorbide Mononitrate 30 MG TAB.ER.24H PO (10:17)
[2023-10-31] MEDS: Metoprolol Tartrate 25 MG TABLET PO ×2 (10:17→20:41)
[2023-10-31] MEDS: lisinopriL 10 MG TABLET PO (10:17)
[2023-10-31] MEDS: Famotidine 20 MG TABLET 40 MG PO (10:17)
[2023-10-31] MEDS: amLODIPine Besylate 2.5 MG TABLET PO (10:17)
--- NOTE | 2023-10-31 10:52 | P.PNPSI_ITS ---
Subjective Subjective Date of Service: 10/31/23 Reason For Visit: AMS Interim History: Physically looking much better compared to prior days I thought I was eating and drinking enough, but evidently I was not . Alert. Oriented to place, some diffiucty with time frame. Very engaged. Feels safe. denies feeling depressed. Denies feeling suicidal.Looking forward to going home at some point. Does have some cognitive impairment that is evident- for example when talking about the [employer], games that are scheduled and games and have occurred and also got mixed up with the seasons. Side effects from medications: No Attending Groups: Intermittent Review of Systems Acute medical concerns: No Review of Systems Review of Systems Unremarkable. Mental Status Exam Mental Status Exam Narrative: Bright and engaged. Drinking fluids. For both. Bright and affect. No SI or HI. No psychosis evident. There is some cognitive impairment. Insight and judgment fair Diagnostics Vital Signs (24Hr): Vital Signs - 24 hr 10/30/23 19:30 10/31/23 06:00 10/31/23 09:11 Temperature 96.2 F L Pulse Rate 88 79 70 Respiratory Rate 15 17 Blood Pressure 125/76 143/74 H 100/58 L Pulse Oximetry 94 97 97 Oxygen Delivery Method Room Air Room Air Room Air 10/31/23 09:43 Temperature Pulse Rate 86 Respiratory Rate Blood Pressure 112/74 Pulse Oximetry 95 Oxygen Delivery Method Room Air BMI result Body Mass Index 19.2 Labs 10/30/23 09:48 10/30/23 09:48 Labs: Laboratory Results - last 48 hr 10/29/23 10/29/23 10/29/23 11:40 12:00 12:50 WBC RBC Hgb Hct MCV MCH MCHC RDW Plt Count MPV Immature Gran % (Auto) Neut % (Auto) Lymph % (Auto) [place] % (Auto) Eos % (Auto) Baso % (Auto) Lymph # (Auto) [place] # (Auto) Eos # (Auto) Baso # (Auto) Abs Immat Gran (auto) Absolute Neuts (auto) Absolute Nucleated RBC Nucleated RBC % (auto) Sodium 143 Potassium 4.5 Chloride 105 Carbon Dioxide 29 Anion Gap 14 BUN 43 H Creatinine 1.45 H Estim Creat Clear Calc 31.0 Estimated GFR 46 Random Glucose 180 H Calcium 10.3 H Total Bilirubin 1.3 H AST 27 ALT 24 Alkaline Phosphatase 59 Total Creatine Kinase 127 Total Protein 7.6 Albumin 4.0 Prolactin Urine Color Dark Yellow Urine Appearance Clear Urine pH 5.0 Ur Specific [place] 1.025 Urine Protein Negative Urine Glucose (UA) Negative Urine Ketones Trace Urine Blood Negative Urine Nitrite Negative Ur Leukocyte Esterase Negative COVID-19 (FER) Negative COVID-19 Clin Com See Note Influenza Type A (SHANON) Influenza Type B (SHANON) Influenza A & B Note 10/29/23 10/29/23 10/30/23 12:59 13:16 09:48 WBC 8.2 7.5 RBC 5.97 H 5.34 Hgb 18.9 H 17.3 Hct 55.6 H 50.0 MCV 93.1 93.6 MCH 31.7 32.4 MCHC 34.0 34.6 RDW 13.1 13.2 Plt Count 241 D 195 MPV 10.1 10.0 Immature Gran % (Auto) 0.2 0.3 Neut % (Auto) 70.6 65.7 Lymph % (Auto) 19.5 L 23.2 [place] % (Auto) 7.8 8.1 Eos % (Auto) 1.2 2.0 Baso % (Auto) 0.7 0.7 Lymph # (Auto) 1.6 1.7 [place] # (Auto) 0.6 0.6 Eos # (Auto) 0.1 0.2 Baso # (Auto) 0.1 0.1 Abs Immat Gran (auto) 0.02 0.02 Absolute Neuts (auto) 5.8 4.9 Absolute Nucleated RBC 0.000 0.000 Nucleated RBC % (auto) 0.0 0.0 Sodium 143 Potassium 4.5 Chloride 106 Carbon Dioxide 30 H Anion Gap 12 BUN 32 H Creatinine 1.18 Estim Creat Clear Calc 38.1 Estimated GFR 59 Random Glucose 156 H Calcium 9.4 D Total Bilirubin 1.3 H AST 22 ALT 20 Alkaline Phosphatase 58 Total Creatine Kinase Total Protein 6.4 L Albumin 3.4 L Prolactin 14.7 Urine Color Urine Appearance Urine pH Ur Specific [place] Urine Protein Urine Glucose (UA) Urine Ketones Urine Blood Urine Nitrite Ur Leukocyte Esterase COVID-19 (FER) COVID-19 Clin Com Influenza Type A (SHANON) Influenza Type B (SHANON) Influenza A & B Note 10/30/23 13:00 WBC RBC Hgb Hct MCV MCH MCHC RDW Plt Count MPV Immature Gran % (Auto) Neut % (Auto) Lymph % (Auto) [place] % (Auto) Eos % (Auto) Baso % (Auto) Lymph # (Auto) [place] # (Auto) Eos # (Auto) Baso # (Auto) Abs Immat Gran (auto) Absolute Neuts (auto) Absolute Nucleated RBC Nucleated RBC % (auto) Sodium Potassium Chloride Carbon Dioxide Anion Gap BUN Creatinine Estim Creat Clear Calc Estimated GFR Random Glucose Calcium Total Bilirubin AST ALT Alkaline Phosphatase Total Creatine Kinase Total Protein Albumin Prolactin Urine Color Urine Appearance Urine pH Ur Specific [place] Urine Protein Urine Glucose (UA) Urine Ketones Urine Blood Urine Nitrite Ur Leukocyte Esterase COVID-19 (FER) COVID-19 Clin Com Influenza Type A (SHANON) Negative Influenza Type B (SHANON) Negative Influenza A & B Note See Note Imaging Radiology Impressions: ITS Impressions Head CT 10/21/23 10:27 IMPRESSION: No acute intracranial hemorrhage or territorial loss of clark-white differentiation. Chest X-Ray 10/29/23 11:15 IMPRESSION: Unremarkable examination. Medications Medications Current Medications Acetaminophen (Acetaminophen 325 Mg Tablet) 650 mg PO Q6H PRN PRN Reason: Headache/Pain Mild Scale (1-3) Al Hydroxide/Mg Hydroxide (Magnesium Hydrox/Alum Hydrox 30 Ml Oral.Susp) 30 ml PO Q6H PRN PRN Reason: Heartburn/Nausea Amlodipine Besylate (Amlodipine Besylate 2.5 Mg Tablet) 2.5 mg PO DAILY [facility]; Protocol Last Admin: 10/31/23 10:17 Dose: 2.5 mg Apixaban (Apixaban 5 Mg Tablet) 5 mg PO BID [facility] Last Admin: 10/31/23 09:44 Dose: 5 mg Famotidine (Famotidine 20 Mg Tablet) 40 mg PO MoWeSa@0900 [facility] Last Admin: 10/31/23 10:17 Dose: 40 mg Haloperidol (Haloperidol 1 Mg Tablet) 1 mg PO Q4H PRN PRN Reason: Psychosis Last Admin: 10/22/23 16:44 Dose: 1 mg Haloperidol (Haloperidol 1 Mg Tablet) 1 mg PO BEDTIME [facility] Last Admin: 10/30/23 20:13 Dose: 1 mg Haloperidol (Haloperidol 0.5 Mg Tablet) 0.5 mg PO BID@0830,1330 [facility] Last Admin: 10/31/23 09:45 Dose: 0.5 mg Hydroxyzine HCl (Hydroxyzine Hcl 25 Mg Tablet) 25 mg PO Q6H PRN PRN Reason: Anxiety Last Admin: 10/26/23 20:32 Dose: 25 mg Isosorbide Mononitrate (Isosorbide Mononitrate 30 Mg Tab.Er.24h) 30 mg PO DAILY [facility]; Protocol Last Admin: 10/31/23 10:17 Dose: 30 mg Lisinopril (Lisinopril 10 Mg Tablet) 10 mg PO DAILY [facility]; Protocol Last Admin: 10/31/23 10:17 Dose: 10 mg Magnesium Hydroxide (Milk Of Magnesia 30 Ml Oral.Susp) 30 ml PO DAILY PRN PRN Reason: Constipation Last Admin: 10/20/23 21:41 Dose: 30 ml Memantine (Memantine Hcl 5 Mg Tablet) 5 mg PO BID [facility] Last Admin: 10/31/23 09:44 Dose: 5 mg Metoprolol Tartrate (Metoprolol Tartrate 25 Mg Tablet) 25 mg PO BID [facility]; Protocol Last Admin: 10/31/23 10:17 Dose: 25 mg Quetiapine Fumarate (Quetiapine Fumarate 25 Mg Tablet) 25 mg PO BEDTIME [facility] Last Admin: 10/30/23 20:13 Dose: 25 mg Sodium Chloride (0.9 % Sodium Chloride Flush 3 Ml Syringe) 3 ml IVFLUSH QSHIFT [facility] Last Admin: 10/31/23 09:23 Dose: Not Given Trazodone HCl (Trazodone Hcl 50 Mg Tablet) 50 mg PO BEDTIME MRX1 PRN PRN Reason: Insomnia Last Admin: 10/27/23 20:37 Dose: 50 mg Vitamin D (Cholecalciferol (Vitamin D3) 25 Mcg Tablet) 25 mcg PO DAILY [facility] Last Admin: 10/31/23 09:45 Dose: 25 mcg Allergies Allergies Allergy/AdvReac Type Severity Reaction Status Date / Time No Known Allergies Allergy Verified 10/19/23 15:28 Assessment & Plan Assessment & Plan (1) Persistent atrial fibrillation: Status: Acute Code(s): I48.19 - Other persistent atrial fibrillation (2) CAD (coronary artery disease): Qualifiers: Associated angina: with unstable angina Coronary Disease-Associated Artery/Lesion type: unspecified vessel or lesion type [place] vs. transplanted heart: [place] heart Qualified Code(s): I25.110 - Atherosclerotic heart disease of [place] coronary artery with unstable angina pectoris Status: Acute Code(s): I25.10 - Atherosclerotic heart disease of [place] coronary artery without angina pectoris (3) HTN (hypertension): Status: Acute Code(s): I10 - Essential (primary) hypertension (4) Hyperlipidemia: Status: Acute Code(s): E78.5 - Hyperlipidemia, unspecified (5) Psychosis: Status: Acute Code(s): F29 - Unspecified psychosis not due to a substance or known physiological condition Plan The patient is an 83-year-old male with a prior history of CAD, HTN, atrial fibrillation and other medical comorbidities with no prior psychiatric illness referred to the emergency room for the onset of psychosis. Also there is no report of a possible cognitive impairment. At the moment of the interview the patient denies new symptoms he is pleasant cooperative and he is willing to follow treatment. Plan 2/2. continue current tx. 2/3: no changes. Will remove IV tomorrow if PO intake remains adequate. Rec MOCA etc.. Reason for continued inpatient stay Substantial Risk for: inability to function Time Spent With Patient Time: Total time managing care of this patient today ____ minutes.
--- NOTE | 2023-10-31 18:07 | PC.NURSE ---
Patient had a visit with his daughter this evening 6:00-6:30. When bringing the daughter in, she was asked if she had belongings to place in the locker, to which she agreed and placed her jacket, phone and purse and stated that was all. Once she came on the unit and was in the sensory room visiting her father (with the door slightly closed), she then pulled out a hot dog and began feeding it to her father. Another nurse witnessed this occurring and she politely informed the daughter on the policy regarding food being brought onto the unit. She allowed the patient to finish the hot dog as he was already fdc done. Dinner was then brought to the unit at the end of the visit, when reminding the daughter the visit had to come to an end, daughter continued to bargain for more time, unfortunately the room needed to be used and this was explained to the daughter. On her way out, daughter asked why we were not playing music for the patients, and when this nurse walked her off the unit, she asked TW What's wrong with that other nurse, she's giving me dirty looks . She couldn't state the nurses name but was visibly irritated.
[2023-10-31 20:00] VITALS: BP 110/79; PULSE 64; RESP 18; TEMP 36.6; O2SAT 98
[2023-10-31] MEDS: QUEtiapine Fumarate 25 MG TABLET PO (20:41)
[2023-10-31] MEDS: HaloperidoL 1 MG TABLET PO (20:41)
[2023-11-01] MEDS: hydrOXYzine HCL 25 MG TABLET PO ×2 (00:47→20:30)
[2023-11-01 01:47] VITALS: RESP 18
[2023-11-01] MEDS: 0.9 % Sodium Chloride Flush 3 ML SYRINGE IVFLUSH ×3 (09:36→23:48)
--- NOTE | 2023-11-01 09:49 | P.PNPSI_ITS ---
Subjective Subjective Date of Service: 11/01/23 Reason For Visit: AMS Subjective Notes: Conditional Voluntary Interim History: Had difficult night ;ast night- hallucinting (visual) in context of loud unit/milieu. Slept well with atarax. This morning recalled being confused last night thinking he was at home- did need some reorientation this morning to place. Very engaged. Feels safe. Not depressed. Looking forward to breakfast. Medication Compliance: Yes Side effects from medications: No Attending Groups: Yes Review of Systems Acute medical concerns: No Review of Systems Review of Systems Unremarkable. Mental Status Exam Mental Status Exam Narrative: Bright and engaged. Bright and affect. No SI or HI. No psychosis evident. There is some cognitive impairment. Insight and judgment fair Diagnostics Vital Signs (24Hr): Vital Signs - 24 hr 10/31/23 20:00 11/01/23 01:47 Temperature 97.8 F Pulse Rate 64 Respiratory Rate 18 18 Blood Pressure 110/79 Pulse Oximetry 98 Oxygen Delivery Method Room Air BMI result Body Mass Index 19.2 Labs 10/30/23 09:48 10/30/23 09:48 Labs: Laboratory Results - last 48 hr 10/29/23 10/30/23 10/30/23 13:16 09:48 13:00 WBC 7.5 RBC 5.34 Hgb 17.3 Hct 50.0 MCV 93.6 MCH 32.4 MCHC 34.6 RDW 13.2 Plt Count 195 MPV 10.0 Immature Gran % (Auto) 0.3 Neut % (Auto) 65.7 Lymph % (Auto) 23.2 Trigg % (Auto) 8.1 Eos % (Auto) 2.0 Baso % (Auto) 0.7 Lymph # (Auto) 1.7 Trigg # (Auto) 0.6 Eos # (Auto) 0.2 Baso # (Auto) 0.1 Abs Immat Gran (auto) 0.02 Absolute Neuts (auto) 4.9 Absolute Nucleated RBC 0.000 Nucleated RBC % (auto) 0.0 Sodium 143 Potassium 4.5 Chloride 106 Carbon Dioxide 30 H Anion Gap 12 BUN 32 H Creatinine 1.18 Estim Creat Clear Calc 38.1 Estimated GFR 59 Random Glucose 156 H Calcium 9.4 D Total Bilirubin 1.3 H AST 22 ALT 20 Alkaline Phosphatase 58 Total Protein 6.4 L Albumin 3.4 L Prolactin 14.7 Influenza Type A (SHANON) Negative Influenza Type B (SHANON) Negative Influenza A & B Note See Note Imaging Radiology Impressions: ITS Impressions Head CT 10/21/23 10:27 IMPRESSION: No acute intracranial hemorrhage or territorial loss of clark-white differentiation. Chest X-Ray 10/29/23 11:15 IMPRESSION: Unremarkable examination. Medications Medications Current Medications Acetaminophen (Acetaminophen 325 Mg Tablet) 650 mg PO Q6H PRN PRN Reason: Headache/Pain Mild Scale (1-3) Al Hydroxide/Mg Hydroxide (Magnesium Hydrox/Alum Hydrox 30 Ml Oral.Susp) 30 ml PO Q6H PRN PRN Reason: Heartburn/Nausea Amlodipine Besylate (Amlodipine Besylate 2.5 Mg Tablet) 2.5 mg PO DAILY [facility]; Protocol Last Admin: 10/31/23 10:17 Dose: 2.5 mg Apixaban (Apixaban 5 Mg Tablet) 5 mg PO BID [facility] Last Admin: 10/31/23 20:41 Dose: 5 mg Famotidine (Famotidine 20 Mg Tablet) 40 mg PO MoWeSa@0900 [facility] Last Admin: 10/31/23 10:17 Dose: 40 mg Haloperidol (Haloperidol 1 Mg Tablet) 1 mg PO Q4H PRN PRN Reason: Psychosis Last Admin: 10/22/23 16:44 Dose: 1 mg Haloperidol (Haloperidol 1 Mg Tablet) 1 mg PO BEDTIME [facility] Last Admin: 10/31/23 20:41 Dose: 1 mg Haloperidol (Haloperidol 0.5 Mg Tablet) 0.5 mg PO BID@0830,1330 [facility] Last Admin: 10/31/23 14:20 Dose: 0.5 mg Hydroxyzine HCl (Hydroxyzine Hcl 25 Mg Tablet) 25 mg PO Q6H PRN PRN Reason: Anxiety Last Admin: 11/01/23 00:47 Dose: 25 mg Isosorbide Mononitrate (Isosorbide Mononitrate 30 Mg Tab.Er.24h) 30 mg PO DAILY [facility]; Protocol Last Admin: 10/31/23 10:17 Dose: 30 mg Lisinopril (Lisinopril 10 Mg Tablet) 10 mg PO DAILY [facility]; Protocol Last Admin: 10/31/23 10:17 Dose: 10 mg Magnesium Hydroxide (Milk Of Magnesia 30 Ml Oral.Susp) 30 ml PO DAILY PRN PRN Reason: Constipation Last Admin: 10/20/23 21:41 Dose: 30 ml Memantine (Memantine Hcl 5 Mg Tablet) 5 mg PO BID [facility] Last Admin: 10/31/23 20:41 Dose: 5 mg Metoprolol Tartrate (Metoprolol Tartrate 25 Mg Tablet) 25 mg PO BID [facility]; Protocol Last Admin: 10/31/23 20:41 Dose: 25 mg Quetiapine Fumarate (Quetiapine Fumarate 25 Mg Tablet) 25 mg PO BEDTIME [facility] Last Admin: 10/31/23 20:41 Dose: 25 mg Sodium Chloride (0.9 % Sodium Chloride Flush 3 Ml Syringe) 3 ml IVFLUSH QSHIFT [facility] Last Admin: 11/01/23 09:36 Dose: 3 ml Trazodone HCl (Trazodone Hcl 50 Mg Tablet) 50 mg PO BEDTIME MRX1 PRN PRN Reason: Insomnia Last Admin: 10/27/23 20:37 Dose: 50 mg Vitamin D (Cholecalciferol (Vitamin D3) 25 Mcg Tablet) 25 mcg PO DAILY [facility] Last Admin: 10/31/23 09:45 Dose: 25 mcg Allergies Allergies Allergy/AdvReac Type Severity Reaction Status Date / Time No Known Allergies Allergy Verified 10/19/23 15:28 Assessment & Plan Assessment & Plan (1) Persistent atrial fibrillation: Status: Acute Code(s): I48.19 - Other persistent atrial fibrillation (2) CAD (coronary artery disease): Qualifiers: Associated angina: with unstable angina Coronary Disease-Associated Artery/Lesion type: unspecified vessel or lesion type [place] vs. transplanted heart: [place] heart Qualified Code(s): I25.110 - Atherosclerotic heart disease of [place] coronary artery with unstable angina pectoris Status: Acute Code(s): I25.10 - Atherosclerotic heart disease of [place] coronary artery without angina pectoris (3) HTN (hypertension): Status: Acute Code(s): I10 - Essential (primary) hypertension (4) Hyperlipidemia: Status: Acute Code(s): E78.5 - Hyperlipidemia, unspecified (5) Psychosis: Status: Acute Code(s): F29 - Unspecified psychosis not due to a substance or known physiological condition Plan The patient is an 83-year-old male with a prior history of CAD, HTN, atrial fibrillation and other medical comorbidities with no prior psychiatric illness referred to the emergency room for the onset of psychosis. Also there is no report of a possible cognitive impairment. At the moment of the interview the patient denies new symptoms he is pleasant cooperative and he is willing to follow treatment. Plan /. continue current tx. 10/31: no changes. 11/01: no changes. Has not eaten today- will remove IV tomorrow if PO intake remains adequate. Rec MOCA etc.. Reason for continued inpatient stay Substantial Risk for: inability to function Time Spent With Patient Time: Total time managing care of this patient today ____ minutes.
[2023-11-01 10:49] VITALS: BP 160/92; PULSE 87; RESP 15; TEMP 36.7; O2SAT 96
[2023-11-01] MEDS: Cholecalciferol (Vitamin D3) 25 MCG TABLET PO (10:51)
[2023-11-01] MEDS: lisinopriL 10 MG TABLET PO (10:52)
[2023-11-01] MEDS: Metoprolol Tartrate 25 MG TABLET PO ×2 (10:52→20:30)
[2023-11-01] MEDS: Apixaban 5 MG TABLET PO ×2 (10:52→20:30)
[2023-11-01] MEDS: Isosorbide Mononitrate 30 MG TAB.ER.24H PO (10:52)
[2023-11-01] MEDS: HaloperidoL 0.5 MG TABLET PO (10:52)
[2023-11-01] MEDS: amLODIPine Besylate 2.5 MG TABLET PO (10:52)
[2023-11-01] MEDS: Memantine HCl 5 MG TABLET PO ×2 (10:52→20:30)
--- NOTE | 2023-11-01 16:01 | PC.NURSE ---
Patient refused his afternoon Haldol when he woke up saying, I'm not taking anymore pills today until I talk to my group cio. I'm taking too many pills and I was 100% before I came in here and now I'm 44%.
[2023-11-01 18:00] VITALS: BP 105/67; PULSE 94; TEMP 36.6; O2SAT 96
[2023-11-01] MEDS: QUEtiapine Fumarate 25 MG TABLET PO (20:31)
[2023-11-01] MEDS: HaloperidoL 1 MG TABLET PO (20:31)
[2023-11-02 06:00] VITALS: BP 111/62; PULSE 92; RESP 14; O2SAT 92
--- NOTE | 2023-11-02 08:23 | P.PNPSI_ITS ---
Subjective Subjective Date of Service: 11/02/23 Reason For Visit: AMS Subjective Notes: Conditional Voluntary and 3 Day Healthcare Proxy: Yes Interim History: Pt slept through the night. Pt has been more visible on the unit. No episodes of syncope. VS stable. He is eating better. He tells this bond writer that he can't wait to return home. He later approach this bond writer, whispering they (pointing at staff) are trying to show my pornography, they probably already delete it from the history of their phone, but I don't want to be part of it. Pt continues to present as suspicious, paranoid, no insight into extend of cognitive impairment nor agitation related to paranoid delusions. He is upset with his for not taking him home. Diagnostics Vital Signs (24Hr): Vital Signs - 24 hr 11/01/23 10:49 11/01/23 18:00 Temperature 98.1 F 97.8 F Pulse Rate 87 94 Respiratory Rate 15 Blood Pressure 160/92 H 105/67 Pulse Oximetry 96 96 Oxygen Delivery Method Room Air Room Air BMI result Body Mass Index 19.2 Labs 10/30/23 09:48 10/30/23 09:48 Imaging Radiology Impressions: ITS Impressions Head CT 10/21/23 10:27 IMPRESSION: No acute intracranial hemorrhage or territorial loss of clark-white differentiation. Chest X-Ray 10/29/23 11:15 IMPRESSION: Unremarkable examination. Medications Medications Current Medications Acetaminophen (Acetaminophen 325 Mg Tablet) 650 mg PO Q6H PRN PRN Reason: Headache/Pain Mild Scale (1-3) Al Hydroxide/Mg Hydroxide (Magnesium Hydrox/Alum Hydrox 30 Ml Oral.Susp) 30 ml PO Q6H PRN PRN Reason: Heartburn/Nausea Amlodipine Besylate (Amlodipine Besylate 2.5 Mg Tablet) 2.5 mg PO DAILY [facility]; Protocol Last Admin: 11/01/23 10:52 Dose: 2.5 mg Apixaban (Apixaban 5 Mg Tablet) 5 mg PO BID [facility] Last Admin: 11/01/23 20:30 Dose: 5 mg Famotidine (Famotidine 20 Mg Tablet) 40 mg PO MoWeSa@0900 [facility] Last Admin: 10/31/23 10:17 Dose: 40 mg Haloperidol (Haloperidol 1 Mg Tablet) 1 mg PO Q4H PRN PRN Reason: Psychosis Last Admin: 10/22/23 16:44 Dose: 1 mg Haloperidol (Haloperidol 1 Mg Tablet) 1 mg PO BEDTIME [facility] Last Admin: 11/01/23 20:31 Dose: 1 mg Haloperidol (Haloperidol 0.5 Mg Tablet) 0.5 mg PO BID@0830,1330 [facility] Last Admin: 11/01/23 15:06 Dose: Not Given Hydroxyzine HCl (Hydroxyzine Hcl 25 Mg Tablet) 25 mg PO Q6H PRN PRN Reason: Anxiety Last Admin: 11/01/23 20:30 Dose: 25 mg Isosorbide Mononitrate (Isosorbide Mononitrate 30 Mg Tab.Er.24h) 30 mg PO DAILY [facility]; Protocol Last Admin: 11/01/23 10:52 Dose: 30 mg Lisinopril (Lisinopril 10 Mg Tablet) 10 mg PO DAILY [facility]; Protocol Last Admin: 11/01/23 10:52 Dose: 10 mg Magnesium Hydroxide (Milk Of Magnesia 30 Ml Oral.Susp) 30 ml PO DAILY PRN PRN Reason: Constipation Last Admin: 10/20/23 21:41 Dose: 30 ml Memantine (Memantine Hcl 5 Mg Tablet) 5 mg PO BID [facility] Last Admin: 11/01/23 20:30 Dose: 5 mg Metoprolol Tartrate (Metoprolol Tartrate 25 Mg Tablet) 25 mg PO BID [facility]; Protocol Last Admin: 11/01/23 20:30 Dose: 25 mg Quetiapine Fumarate (Quetiapine Fumarate 25 Mg Tablet) 25 mg PO BEDTIME [facility] Last Admin: 11/01/23 20:31 Dose: 25 mg Sodium Chloride (0.9 % Sodium Chloride Flush 3 Ml Syringe) 3 ml IVFLUSH QSHIFT [facility] Last Admin: 11/01/23 23:48 Dose: 3 ml Trazodone HCl (Trazodone Hcl 50 Mg Tablet) 50 mg PO BEDTIME MRX1 PRN PRN Reason: Insomnia Last Admin: 10/27/23 20:37 Dose: 50 mg Vitamin D (Cholecalciferol (Vitamin D3) 25 Mcg Tablet) 25 mcg PO DAILY [facility] Last Admin: 11/01/23 10:51 Dose: 25 mcg Allergies Allergies Allergy/AdvReac Type Severity Reaction Status Date / Time No Known Allergies Allergy Verified 10/19/23 15:28 Assessment & Plan Assessment & Plan (1) Major neurocognitive disorder due to another medical condition, with psychotic disturbance: Status: Acute Code(s): F02.82 - Dementia in other diseases classified elsewhere, unspecified severity, with psychotic disturbance (2) Persistent atrial fibrillation: Status: Acute Code(s): I48.19 - Other persistent atrial fibrillation (3) CAD (coronary artery disease): Qualifiers: Associated angina: with unstable angina Coronary Disease-Associated Artery/Lesion type: unspecified vessel or lesion type [place] vs. transplanted heart: [place] heart Qualified Code(s): I25.110 - Atherosclerotic heart disease of [place] coronary artery with unstable angina pectoris Status: Acute Code(s): I25.10 - Atherosclerotic heart disease of [place] coronary artery without angina pectoris (4) HTN (hypertension): Status: Acute Code(s): I10 - Essential (primary) hypertension (5) Hyperlipidemia: Status: Acute Code(s): E78.5 - Hyperlipidemia, unspecified Plan The patient is an 83-year-old male with a prior history of CAD, HTN, atrial fibrillation and other medical comorbidities with no prior psychiatric illness referred to the emergency room for the onset of psychosis. Also there is no report of a possible cognitive impairment. At the moment of the interview the patient denies new symptoms he is pleasant cooperative and he is willing to follow treatment. Plan 2/2. continue current tx. 2/3: no changes. 2/4: no changes. Has not eaten today- will remove IV tomorrow if PO intake remains adequate. Rec MOCA etc.. 2/5 continue to present with paranoid delusions, increase haldol to 2mg po BID. oral intake may be better. continue to monitor renal function, hydration status. Reason for continued inpatient stay Substantial Risk for: inability to function Time Spent With Patient Time: Total time managing care of this patient today ____ minutes.
[2023-11-02] MEDS: HaloperidoL 0.5 MG TABLET PO ×2 (10:54→15:11)
[2023-11-02] MEDS: Apixaban 5 MG TABLET PO ×2 (10:54→20:53)
[2023-11-02] MEDS: lisinopriL 10 MG TABLET PO (10:54)
[2023-11-02] MEDS: Metoprolol Tartrate 25 MG TABLET PO ×2 (10:54→20:53)
[2023-11-02] MEDS: Memantine HCl 5 MG TABLET PO ×2 (10:54→20:53)
[2023-11-02] MEDS: Isosorbide Mononitrate 30 MG TAB.ER.24H PO (10:54)
[2023-11-02] MEDS: Cholecalciferol (Vitamin D3) 25 MCG TABLET PO (10:55)
[2023-11-02] MEDS: amLODIPine Besylate 2.5 MG TABLET PO (10:59)
[2023-11-02] MEDS: Famotidine 20 MG TABLET 40 MG PO (15:11)
[2023-11-02 16:01] LABS: Alanine Aminotransferase 20 U/L (0-40); Albumin Level 3.4 g/dL (3.5-5.0); Alkaline Phosphatase 58 U/L (39-117); Anion Gap 13 (12-20); Aspartate Amino Transferase 22 U/L (5-37); Bilirubin Total 1.5 mg/dL (0.0-1.0); Blood Urea Nitrogen 22 mg/dL (9-16); Calcium 9.6 mg/dL (8.4-10.2); Carbon Dioxide 28 mmol/L (22-29); Chloride 105 mmol/L (96-108); Creatinine Clr Calc Pharmacy 39.8; Estimated Glomerular Filt Rate > 60; Glucose Random 125 mg/dL (60-115); Potassium 4.1 mmol/L (3.3-5.1); Sodium 142 mmol/L (135-145); Total Protein 6.3 g/dL (6.5-8.0)
--- NOTE | 2023-11-02 17:43 | PC.NURSE ---
Patient IV access removed per provider. #22 G R wrist. Patient tolerated well. Site covered with dressing.
[2023-11-02 18:00] VITALS: BP 131/90; PULSE 62; RESP 18; TEMP 36.4; O2SAT 97
[2023-11-02] MEDS: hydrOXYzine HCL 25 MG TABLET PO (20:54)
[2023-11-02] MEDS: QUEtiapine Fumarate 25 MG TABLET PO (20:54)
[2023-11-02] MEDS: HaloperidoL 1 MG TABLET 2 MG PO (20:54)
[2023-11-03 07:30] VITALS: BP 108/70; PULSE 80; RESP 17; TEMP 35.8; O2SAT 98
[2023-11-03] MEDS: Cholecalciferol (Vitamin D3) 25 MCG TABLET PO (08:33)
[2023-11-03] MEDS: lisinopriL 10 MG TABLET PO (08:33)
[2023-11-03] MEDS: Apixaban 5 MG TABLET PO ×2 (08:34→20:21)
[2023-11-03] MEDS: Metoprolol Tartrate 25 MG TABLET PO ×2 (08:34→20:21)
[2023-11-03] MEDS: Memantine HCl 5 MG TABLET PO ×2 (08:34→20:22)
[2023-11-03] MEDS: amLODIPine Besylate 2.5 MG TABLET PO (08:35)
[2023-11-03] MEDS: Isosorbide Mononitrate 30 MG TAB.ER.24H PO (08:35)
[2023-11-03] MEDS: HaloperidoL 1 MG TABLET 2 MG PO ×2 (08:35→20:20)
--- NOTE | 2023-11-03 09:17 | HO.PSYCHPN ---
Subjective Subjective Date of Service: 11/03/23 Reason For Visit: AMS Subjective Notes: Conditional Voluntary Interim History: The nursing staff reported the patient was irritable in the morning. Even though he had been compliant with treatment. He looks pleasantly confused at this moment. The social services director reported they had a family meeting yesterday and they want to keep him here until information of the healthcare proxy and Thursday but at this point the patient remains chronically psychotic but redirectable. On interview the patient denies new symptoms, most likely we will have to discharge him tomorrow since there has no clinical indication of improvement with the increase of Haldol and his behavior is manageable. Mental Status Exam Mental Status Exam Patient Appearance: Appropriate Patient Orientation: Person and Situation Level of Consciousness: Awake and Appropriate Patient Behavior: Guarded and Passive Mood Description: Calm Affect Description: Labile Patient Cognition Impaired: Yes Ability to Follow Directions: Good Speech Pattern: Clear Hallucinations: None Delusions: Paranoid Ideation and Ideas of Reference Thought Process: Distracted and Slowed Thinking Thought Content: positive for Schneider and positive for Poverty of Content Judgement: Poor Diagnostics Vital Signs (24Hr): Vital Signs - 24 hr 11/02/23 18:00 11/03/23 07:30 Temperature 97.5 F 96.5 F L Pulse Rate 62 80 Respiratory Rate 18 17 Blood Pressure 131/90 H 108/70 Pulse Oximetry 97 98 Oxygen Delivery Method Room Air Room Air BMI result Body Mass Index 19.2 Labs 10/30/23 09:48 11/02/23 15:38 Labs: Laboratory Results - last 48 hr 11/02/23 15:38 Sodium 142 Potassium 4.1 Chloride 105 Carbon Dioxide 28 Anion Gap 13 BUN 22 H Creatinine 1.13 Estim Creat Clear Calc 39.8 Estimated GFR > 60 Random Glucose 125 H Calcium 9.6 Total Bilirubin 1.5 H AST 22 ALT 20 Alkaline Phosphatase 58 Total Protein 6.3 L Albumin 3.4 L Imaging Radiology Impressions: ITS Impressions Head CT 10/21/23 10:27 IMPRESSION: No acute intracranial hemorrhage or territorial loss of clark-white differentiation. Chest X-Ray 10/29/23 11:15 IMPRESSION: Unremarkable examination. Medications Medications Current Medications Acetaminophen (Acetaminophen 325 Mg Tablet) 650 mg PO Q6H PRN PRN Reason: Headache/Pain Mild Scale (1-3) Al Hydroxide/Mg Hydroxide (Magnesium Hydrox/Alum Hydrox 30 Ml Oral.Susp) 30 ml PO Q6H PRN PRN Reason: Heartburn/Nausea Amlodipine Besylate (Amlodipine Besylate 2.5 Mg Tablet) 2.5 mg PO DAILY [facility]; Protocol Last Admin: 11/03/23 08:35 Dose: 2.5 mg Apixaban (Apixaban 5 Mg Tablet) 5 mg PO BID [facility] Last Admin: 11/03/23 08:34 Dose: 5 mg Famotidine (Famotidine 20 Mg Tablet) 40 mg PO MoWeSa@0900 [facility] Last Admin: 11/02/23 15:11 Dose: 40 mg Haloperidol (Haloperidol 1 Mg Tablet) 1 mg PO Q4H PRN PRN Reason: Psychosis Last Admin: 10/22/23 16:44 Dose: 1 mg Haloperidol (Haloperidol 1 Mg Tablet) 2 mg PO BID [facility] Last Admin: 11/03/23 08:35 Dose: 2 mg Hydroxyzine HCl (Hydroxyzine Hcl 25 Mg Tablet) 25 mg PO Q8H PRN PRN Reason: Anxiety Last Admin: 11/02/23 20:54 Dose: 25 mg Isosorbide Mononitrate (Isosorbide Mononitrate 30 Mg Tab.Er.24h) 30 mg PO DAILY [facility]; Protocol Last Admin: 11/03/23 08:35 Dose: 30 mg Lisinopril (Lisinopril 10 Mg Tablet) 10 mg PO DAILY [facility]; Protocol Last Admin: 11/03/23 08:33 Dose: 10 mg Magnesium Hydroxide (Milk Of Magnesia 30 Ml Oral.Susp) 30 ml PO DAILY PRN PRN Reason: Constipation Last Admin: 10/20/23 21:41 Dose: 30 ml Memantine (Memantine Hcl 5 Mg Tablet) 5 mg PO BID [facility] Last Admin: 11/03/23 08:34 Dose: 5 mg Metoprolol Tartrate (Metoprolol Tartrate 25 Mg Tablet) 25 mg PO BID [facility]; Protocol Last Admin: 11/03/23 08:34 Dose: 25 mg Sodium Chloride (0.9 % Sodium Chloride Flush 3 Ml Syringe) 3 ml IVFLUSH QSHIFT [facility] Last Admin: 11/03/23 08:37 Dose: Not Given Trazodone HCl (Trazodone Hcl 50 Mg Tablet) 50 mg PO BEDTIME MRX1 PRN PRN Reason: Insomnia Last Admin: 10/27/23 20:37 Dose: 50 mg Vitamin D (Cholecalciferol (Vitamin D3) 25 Mcg Tablet) 25 mcg PO DAILY [facility] Last Admin: 11/03/23 08:33 Dose: 25 mcg Allergies Allergies Allergy/AdvReac Type Severity Reaction Status Date / Time No Known Allergies Allergy Verified 10/19/23 15:28 Assessment & Plan Assessment & Plan (1) Major neurocognitive disorder due to another medical condition, with psychotic disturbance: Status: Acute Code(s): F02.82 - Dementia in other diseases classified elsewhere, unspecified severity, with psychotic disturbance (2) Persistent atrial fibrillation: Status: Acute Code(s): I48.19 - Other persistent atrial fibrillation (3) CAD (coronary artery disease): Qualifiers: Associated angina: with unstable angina Coronary Disease-Associated Artery/Lesion type: unspecified vessel or lesion type [place] vs. transplanted heart: [place] heart Qualified Code(s): I25.110 - Atherosclerotic heart disease of [place] coronary artery with unstable angina pectoris Status: Acute Code(s): I25.10 - Atherosclerotic heart disease of [place] coronary artery without angina pectoris (4) HTN (hypertension): Status: Acute Code(s): I10 - Essential (primary) hypertension (5) Hyperlipidemia: Status: Acute Code(s): E78.5 - Hyperlipidemia, unspecified Plan The patient is an 83-year-old male with a prior history of CAD, HTN, atrial fibrillation and other medical comorbidities with no prior psychiatric illness referred to the emergency room for the onset of psychosis. Also there is no report of a possible cognitive impairment. At the moment of the interview the patient denies new symptoms he is pleasant cooperative and he is willing to follow treatment. Plan 1. Continue with Haldol 2 mg p.o. b.i.d. to target psychosis. 2. Continue with other medications. 3. Start working on discharge planning. Reason for continued inpatient stay Substantial Risk for: inability to function, rapid decompensation and med/psych decompensation Time Spent With Patient Time: Total time managing care of this patient today __20__ minutes.
[2023-11-03 19:40] VITALS: BP 111/71; PULSE 84; RESP 16; TEMP 36.2; O2SAT 98
[2023-11-04 08:00] VITALS: BP 112/69; PULSE 58; RESP 16; TEMP 36; O2SAT 98
--- NOTE | 2023-11-04 09:55 | HO.PSYCHPN ---
Subjective Subjective Date of Service: 11/04/23 Reason For Visit: AMS Subjective Notes: Conditional Voluntary Interim History: The nursing staff reported the patient had been engageable with peers and staff he slept well he has been fully compliant with treatment. On interview the patient denies new symptoms and he is excited that he is going to be discharged tomorrow. Mental Status Exam Mental Status Exam Patient Appearance: Well Grooomed and Appropriate Patient Orientation: Person and Situation Level of Consciousness: Awake and Appropriate Patient Behavior: Guarded and Passive Mood Description: Calm Affect Description: Constricted Patient Cognition Impaired: Yes Ability to Follow Directions: Good Speech Pattern: Clear Hallucinations: None Delusions: Paranoid Ideation Thought Process: Distracted and Slowed Thinking Thought Content: positive for [place] and positive for Poverty of Content Judgement: Fair Diagnostics Vital Signs (24Hr): Vital Signs - 24 hr 11/03/23 19:40 Temperature 97.2 F Pulse Rate 84 Respiratory Rate 16 Blood Pressure 111/71 Pulse Oximetry 98 Oxygen Delivery Method Room Air BMI result Body Mass Index 19.2 Labs 10/30/23 09:48 11/02/23 15:38 Labs: Laboratory Results - last 48 hr 11/02/23 15:38 Sodium 142 Potassium 4.1 Chloride 105 Carbon Dioxide 28 Anion Gap 13 BUN 22 H Creatinine 1.13 Estim Creat Clear Calc 39.8 Estimated GFR > 60 Random Glucose 125 H Calcium 9.6 Total Bilirubin 1.5 H AST 22 ALT 20 Alkaline Phosphatase 58 Total Protein 6.3 L Albumin 3.4 L Imaging Radiology Impressions: ITS Impressions Head CT 10/21/23 10:27 IMPRESSION: No acute intracranial hemorrhage or territorial loss of clark-white differentiation. Chest X-Ray 10/29/23 11:15 IMPRESSION: Unremarkable examination. Medications Medications Current Medications Acetaminophen (Acetaminophen 325 Mg Tablet) 650 mg PO Q6H PRN PRN Reason: Headache/Pain Mild Scale (1-3) Al Hydroxide/Mg Hydroxide (Magnesium Hydrox/Alum Hydrox 30 Ml Oral.Susp) 30 ml PO Q6H PRN PRN Reason: Heartburn/Nausea Amlodipine Besylate (Amlodipine Besylate 2.5 Mg Tablet) 2.5 mg PO DAILY [facility]; Protocol Last Admin: 11/03/23 08:35 Dose: 2.5 mg Apixaban (Apixaban 5 Mg Tablet) 5 mg PO BID [facility] Last Admin: 11/03/23 20:21 Dose: 5 mg Famotidine (Famotidine 20 Mg Tablet) 40 mg PO [id number] [facility] Last Admin: 11/02/23 15:11 Dose: 40 mg Haloperidol (Haloperidol 1 Mg Tablet) 1 mg PO Q4H PRN PRN Reason: Psychosis Last Admin: 10/22/23 16:44 Dose: 1 mg Haloperidol (Haloperidol 1 Mg Tablet) 2 mg PO BID [facility] Last Admin: 11/03/23 20:20 Dose: 2 mg Hydroxyzine HCl (Hydroxyzine Hcl 25 Mg Tablet) 25 mg PO Q8H PRN PRN Reason: Anxiety Last Admin: 11/02/23 20:54 Dose: 25 mg Isosorbide Mononitrate (Isosorbide Mononitrate 30 Mg Tab.Er.24h) 30 mg PO DAILY [facility]; Protocol Last Admin: 11/03/23 08:35 Dose: 30 mg Lisinopril (Lisinopril 10 Mg Tablet) 10 mg PO DAILY [facility]; Protocol Last Admin: 11/03/23 08:33 Dose: 10 mg Magnesium Hydroxide (Milk Of Magnesia 30 Ml Oral.Susp) 30 ml PO DAILY PRN PRN Reason: Constipation Last Admin: 10/20/23 21:41 Dose: 30 ml Memantine (Memantine Hcl 5 Mg Tablet) 5 mg PO BID [facility] Last Admin: 11/03/23 20:22 Dose: 5 mg Metoprolol Tartrate (Metoprolol Tartrate 25 Mg Tablet) 25 mg PO BID [facility]; Protocol Last Admin: 11/03/23 20:21 Dose: 25 mg Trazodone HCl (Trazodone Hcl 50 Mg Tablet) 50 mg PO BEDTIME MRX1 PRN PRN Reason: Insomnia Last Admin: 10/27/23 20:37 Dose: 50 mg Vitamin D (Cholecalciferol (Vitamin D3) 25 Mcg Tablet) 25 mcg PO DAILY [facility] Last Admin: 11/03/23 08:33 Dose: 25 mcg Allergies Allergies Allergy/AdvReac Type Severity Reaction Status Date / Time No Known Allergies Allergy Verified 10/19/23 15:28 Assessment & Plan Assessment & Plan (1) Major neurocognitive disorder due to another medical condition, with psychotic disturbance: Status: Acute Code(s): F02.82 - Dementia in other diseases classified elsewhere, unspecified severity, with psychotic disturbance (2) Persistent atrial fibrillation: Status: Acute Code(s): I48.19 - Other persistent atrial fibrillation (3) CAD (coronary artery disease): Qualifiers: Associated angina: with unstable angina Coronary Disease-Associated Artery/Lesion type: unspecified vessel or lesion type [place] vs. transplanted heart: [place] heart Qualified Code(s): I25.110 - Atherosclerotic heart disease of [place] coronary artery with unstable angina pectoris Status: Acute Code(s): I25.10 - Atherosclerotic heart disease of [place] coronary artery without angina pectoris (4) HTN (hypertension): Status: Acute Code(s): I10 - Essential (primary) hypertension (5) Hyperlipidemia: Status: Acute Code(s): E78.5 - Hyperlipidemia, unspecified Plan The patient is an 83-year-old male with a prior history of CAD, HTN, atrial fibrillation and other medical comorbidities with no prior psychiatric illness referred to the emergency room for the onset of psychosis. Also there is no report of a possible cognitive impairment. At the moment of the interview the patient denies new symptoms he is pleasant cooperative and he is willing to follow treatment. Plan 1. Continue with Haldol 2 mg p.o. b.i.d. to target psychosis. 2. Continue with other medications. 3. Start working on discharge planning. He is going to be discharged tomorrow Reason for continued inpatient stay Substantial Risk for: inability to function, rapid decompensation and med/psych decompensation Time Spent With Patient Time: Total time managing care of this patient today __20__ minutes.
--- NOTE | 2023-11-04 14:24 | MHC.CLN ---
F/U INTAKE TODAY 50% BREAKFAST, 100% LUNCH. RECENT HX POOR PO. CONTINUE REGULAR DIET WITH MAGIC CUP BID. RD TO FOLLOW UP WEEKLY.
[2023-11-04 19:58] VITALS: BP 140/81; PULSE 88; RESP 16; TEMP 36.6; O2SAT 96
[2023-11-04] MEDS: Metoprolol Tartrate 25 MG TABLET PO (20:01)
[2023-11-04] MEDS: Memantine HCl 5 MG TABLET PO (20:01)
[2023-11-04] MEDS: Apixaban 5 MG TABLET PO (20:01)
[2023-11-04] MEDS: HaloperidoL 1 MG TABLET 2 MG PO (20:02)
[2023-11-05 08:00] VITALS: BP 129/84; PULSE 56; RESP 16; TEMP 36.1; O2SAT 98
--- NOTE | 2023-11-05 08:14 | P.DS_ITS ---
DS: Providers Provider Date of Service: 11/05/23 Date of admission: 10/20/23 11:26 Date of discharge: 11/05/23 Primary care physician: Kameron Sky MD Consults: 10/29/23 10:30 Consult to Hospitalist Routine Comment: Consulting Provider: Hospitalist Reason For Exam: Acute change of mental status Attending physician on discharge: Rigoberto Lea DS: Diagnosis Discharge Diagnosis (1) Major neurocognitive disorder due to another medical condition, with psychotic disturbance: Status: Acute (2) Persistent atrial fibrillation: Status: Acute (3) CAD (coronary artery disease): Status: Acute (4) HTN (hypertension): Status: Acute (5) Hyperlipidemia: Status: Acute DS: Medications Discharge Medications Home Medications: Home Medications Medication Instructions Recorded Confirmed cholecalciferol (vitamin D3) 25 25 mcg PO DAILY 03/12/21 10/19/23 mcg (1,000 unit) tablet coenzyme Q10 30 mg capsule (Co 30 mg PO DAILY 03/12/21 10/19/23 Q-10) apixaban 5 mg tablet (Eliquis) 5 mg PO BID 03/22/21 10/19/23 lisinopril 10 mg tablet 10 mg PO DAILY 08/28/21 10/19/23 metoprolol tartrate 50 mg tablet 25 mg PO BID 06/26/22 10/19/23 famotidine 40 mg tablet (Pepcid) 40 mg PO MOWESA 10/19/23 10/19/23 quetiapine 25 mg tablet 25 mg PO BEDTIME 10/19/23 10/19/23 Previous Rx's Medication Instructions Recorded amlodipine 2.5 mg tablet 2.5 mg PO DAILY #90 tabs 05/18/23 isosorbide mononitrate 30 mg 30 mg PO DAILY #30 tabs 06/22/23 tablet,extended release 24 hr Mental Status Exam Mental Status Exam Patient Appearance: Well Grooomed and Appropriate Patient Orientation: Person and Situation Level of Consciousness: Awake and Appropriate Patient Behavior: Guarded and Passive Mood Description: Withdrawn Affect Description: Constricted Patient Cognition Impaired: Yes Ability to Follow Directions: Good Speech Pattern: Clear Hallucinations: None Delusions: Paranoid Ideation and Ideas of Reference Thought Process: Distracted and Evasive Thought Content: positive for [place], positive for Poverty of Content and positive for Thought Blocking Judgement: Poor Data Data Completed and Pending Completed studies during hospitalization [Text1]: 10/29/23 10/29/23 10/29/23 10:38 11:40 12:00 WBC RBC Hgb Hct MCV MCH MCHC RDW Plt Count MPV Immature Gran % (Auto) Neut % (Auto) Lymph % (Auto) [place] % (Auto) Eos % (Auto) Baso % (Auto) Lymph # (Auto) [place] # (Auto) Eos # (Auto) Baso # (Auto) Abs Immat Gran (auto) Absolute Neuts (auto) Absolute Nucleated RBC Nucleated RBC % (auto) Sodium Potassium Chloride Carbon Dioxide Anion Gap BUN Creatinine Estim Creat Clear Calc Estimated GFR POC Glucose 110 Random Glucose Calcium Total Bilirubin AST ALT Alkaline Phosphatase Total Creatine Kinase Total Protein Albumin Prolactin Urine Color Dark Yellow Urine Appearance Clear Urine pH 5.0 Ur Specific [place] 1.025 Urine Protein Negative Urine Glucose (UA) Negative Urine Ketones Trace Urine Blood Negative Urine Nitrite Negative Ur Leukocyte Esterase Negative COVID-19 (FER) Negative COVID-19 Clin Com See Note Influenza Type A (SHANON) Influenza Type B (SHANON) Influenza A & B Note 10/29/23 10/29/23 10/29/23 12:50 12:59 13:16 WBC 8.2 RBC 5.97 H Hgb 18.9 H Hct 55.6 H MCV 93.1 MCH 31.7 MCHC 34.0 RDW 13.1 Plt Count 241 D MPV 10.1 Immature Gran % (Auto) 0.2 Neut % (Auto) 70.6 Lymph % (Auto) 19.5 L [place] % (Auto) 7.8 Eos % (Auto) 1.2 Baso % (Auto) 0.7 Lymph # (Auto) 1.6 [place] # (Auto) 0.6 Eos # (Auto) 0.1 Baso # (Auto) 0.1 Abs Immat Gran (auto) 0.02 Absolute Neuts (auto) 5.8 Absolute Nucleated RBC 0.000 Nucleated RBC % (auto) 0.0 Sodium 143 Potassium 4.5 Chloride 105 Carbon Dioxide 29 Anion Gap 14 BUN 43 H Creatinine 1.45 H Estim Creat Clear Calc 31.0 Estimated GFR 46 POC Glucose Random Glucose 180 H Calcium 10.3 H Total Bilirubin 1.3 H AST 27 ALT 24 Alkaline Phosphatase 59 Total Creatine Kinase 127 Total Protein 7.6 Albumin 4.0 Prolactin 14.7 Urine Color Urine Appearance Urine pH Ur Specific [place] Urine Protein Urine Glucose (UA) Urine Ketones Urine Blood Urine Nitrite Ur Leukocyte Esterase COVID-19 (FER) COVID-19 Clin Com Influenza Type A (SHANON) Influenza Type B (SHANON) Influenza A & B Note 10/30/23 10/30/23 11/02/23 09:48 13:00 15:38 WBC 7.5 RBC 5.34 Hgb 17.3 Hct 50.0 MCV 93.6 MCH 32.4 MCHC 34.6 RDW 13.2 Plt Count 195 MPV 10.0 Immature Gran % (Auto) 0.3 Neut % (Auto) 65.7 Lymph % (Auto) 23.2 [place] % (Auto) 8.1 Eos % (Auto) 2.0 Baso % (Auto) 0.7 Lymph # (Auto) 1.7 [place] # (Auto) 0.6 Eos # (Auto) 0.2 Baso # (Auto) 0.1 Abs Immat Gran (auto) 0.02 Absolute Neuts (auto) 4.9 Absolute Nucleated RBC 0.000 Nucleated RBC % (auto) 0.0 Sodium 143 142 Potassium 4.5 4.1 Chloride 106 105 Carbon Dioxide 30 H 28 Anion Gap 12 13 BUN 32 H 22 H Creatinine 1.18 1.13 Estim Creat Clear Calc 38.1 39.8 Estimated GFR 59 > 60 POC Glucose Random Glucose 156 H 125 H Calcium 9.4 D 9.6 Total Bilirubin 1.3 H 1.5 H AST 22 22 ALT 20 20 Alkaline Phosphatase 58 58 Total Creatine Kinase Total Protein 6.4 L 6.3 L Albumin 3.4 L 3.4 L Prolactin Urine Color Urine Appearance Urine pH Ur Specific [place] Urine Protein Urine Glucose (UA) Urine Ketones Urine Blood Urine Nitrite Ur Leukocyte Esterase COVID-19 (FER) COVID-19 Clin Com Influenza Type A (SHANON) Negative Influenza Type B (SHANON) Negative Influenza A & B Note See Note Imaging Diagnostic Imaging Impressions Head CT 10/21/23 10:27 IMPRESSION: No acute intracranial hemorrhage or territorial loss of clark-white differentiation. Chest X-Ray 10/29/23 11:15 IMPRESSION: Unremarkable examination. 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 He does not have prior history of mental illness and he does not have any mental health treatment before. Please see the HPI of the admission note for further details. On admission it was clear that the patient had been psychotic with very unsafe behaviors such as holding a gun in his [place] sure that there were intruders, he nearly put his hand on the garbage disposal because he thought that there was people below that and he had been more aggressive and irritable with his family. We gather collateral information and we had several family meetings and apparently the patient had been fairly stable until last months. We start a medical workout and the CT scan showed microvascular disease compatible with vascular dementia. Also we did a [place] test and he scored 8/30 and his [place] test was very low. We started on amantadine and Haldol in a low dose that we titrated slowly up to 2 mg p.o. b.i.d. to target psychosis with for improvement. Even though the patient did not showed unsafe behaviors in the unit it was clear the patient has still residual paranoia and poor short-term memory. The family will take him back with ancillary services. At this moment there is no safety behaviors safe to be discharged to the community. Time spent discussing smoking cessation with patient: 3 to 10 minutes Status at Discharge Cognitive/behavioral status at discharge: Impaired at baseline, severe dementia Functional status at discharge: independent ambulation Overall status at discharge: patient is back to baseline Time Spent with Patient Time attestation: Total time managing care of this patient today __30__ minutes. 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 Referrals: Michaela Cisneros NP [facility]-psychiatry [Other] - 11/17/23 12:00 pm (Your first in office appointment with Michaela Cisneros NP is scheduled for 11/17/23 at 12PM.) Kameron Sky MD [Primary Care Provider] - 1 Week Discharge Medications: New haloperidol 1 mg Tablet 2 mg PO BID 30 Days Qty: 120 0RF memantine 5 mg Tablet 5 mg PO BID 30 Days Qty: 60 0RF Continued famotidine [Pepcid] 40 mg Tablet 40 mg PO MOWESA 30 Days Qty: 13 0RF isosorbide mononitrate 30 mg tablet extended release 24 hr 30 mg PO DAILY Qty: 30 5RF amlodipine 2.5 mg tablet 2.5 mg PO DAILY Qty: 90 3RF lisinopril 10 mg tablet 10 mg PO DAILY 30 Days Qty: 30 0RF metoprolol tartrate 50 mg tablet 25 mg PO BID 30 Days Qty: 30 0RF coenzyme Q10 [Co Q-10] 30 mg Capsule 30 mg PO DAILY Qty: 30 0RF cholecalciferol (vitamin D3) 25 mcg (1,000 unit) Tablet 25 mcg PO DAILY Qty: 30 0RF Eliquis 5 mg tablet 5 mg PO BID Qty: 60 0RF Discontinued quetiapine 25 mg Tablet 25 mg PO BEDTIME Discharge Orders: Discharge Order (Routine); Ordered 11/05/23 Ordered By: Rigoberto Lea Diet: Advance to usual diet Activity on Discharge: As tolerated Stand Alone Forms: Patient Portal Discharge page Care Plan Goals: Care plan goals achieved in this admission psychosis is under control Health Concerns: Continue treatment with outpatient providers including PCP and specialists. Plan of Treatment: Continue outpatient providers. Assessment: The patient is an elderly male with a past history of CAD HTN and other medical comorbidities who presented here with psychosis and dementia. The patient improved with a low dose of Haldol and we started Namenda in titrated up to 5 mg p.o. b.i.d. with good tolerability. The patient is safe to be discharged to the community.
[2023-11-05] MEDS: Cholecalciferol (Vitamin D3) 25 MCG TABLET PO (08:42)
[2023-11-05] MEDS: HaloperidoL 1 MG TABLET 2 MG PO (08:42)
[2023-11-05] MEDS: Apixaban 5 MG TABLET PO (08:42)
[2023-11-05] MEDS: Memantine HCl 5 MG TABLET PO (08:42)
[2023-11-05] MEDS: amLODIPine Besylate 2.5 MG TABLET PO (08:42)
--- NOTE | 2023-11-05 11:02 | P.PNPSI_ITS ---
Subjective Subjective Date of Service: 11/05/23 Reason For Visit: AMS Subjective Notes: Conditional Voluntary Interim History: Patient denies hallucinations or delusions ready for discharge. Today we are going to discharge to the care of his family. Mental Status Exam Mental Status Exam Patient Appearance: Well Grooomed and Appropriate Patient Orientation: Person and Situation Level of Consciousness: Awake Patient Behavior: Guarded and Passive Mood Description: Calm Affect Description: Constricted Patient Cognition Impaired: Yes Ability to Follow Directions: Good Speech Pattern: Clear Hallucinations: None Delusions: Not Present Thought Process: Distracted and Evasive Thought Content: positive for [place] and positive for Circumstantial Judgement: Fair Diagnostics Vital Signs (24Hr): Vital Signs - 24 hr 11/04/23 19:58 11/05/23 08:00 Temperature 97.8 F 97.0 F Pulse Rate 88 56 Respiratory Rate 16 16 Blood Pressure 140/81 H 129/84 Pulse Oximetry 96 98 Oxygen Delivery Method Room Air Room Air BMI result Body Mass Index 19.2 Labs 10/30/23 09:48 11/02/23 15:38 Imaging Radiology Impressions: ITS Impressions Head CT 10/21/23 10:27 IMPRESSION: No acute intracranial hemorrhage or territorial loss of clark-white differentiation. Chest X-Ray 10/29/23 11:15 IMPRESSION: Unremarkable examination. Medications Medications Current Medications Acetaminophen (Acetaminophen 325 Mg Tablet) 650 mg PO Q6H PRN PRN Reason: Headache/Pain Mild Scale (1-3) Al Hydroxide/Mg Hydroxide (Magnesium Hydrox/Alum Hydrox 30 Ml Oral.Susp) 30 ml PO Q6H PRN PRN Reason: Heartburn/Nausea Amlodipine Besylate (Amlodipine Besylate 2.5 Mg Tablet) 2.[address] [facility]; Protocol Last Admin: 11/05/23 08:42 Dose: 2.5 mg Apixaban (Apixaban 5 Mg Tablet) [address] [facility] Last Admin: 11/05/23 08:42 Dose: 5 mg Famotidine (Famotidine 20 Mg Tablet) 40 mg PO [id number]@0900 [facility] Last Admin: 11/04/23 10:27 Dose: Not Given Haloperidol (Haloperidol 1 Mg Tablet) 1 mg PO Q4H PRN PRN Reason: Psychosis Last Admin: 10/22/23 16:44 Dose: 1 mg Haloperidol (Haloperidol 1 Mg Tablet) [address] [facility] Last Admin: 11/05/23 08:42 Dose: 2 mg Hydroxyzine HCl (Hydroxyzine Hcl 25 Mg Tablet) 25 mg PO Q8H PRN PRN Reason: Anxiety Last Admin: 11/02/23 20:54 Dose: 25 mg Isosorbide Mononitrate (Isosorbide Mononitrate 30 Mg Tab.Er.24h) [address] [facility]; Protocol Last Admin: 11/05/23 08:47 Dose: Not Given Lisinopril (Lisinopril 10 Mg Tablet) [address] [facility]; Protocol Last Admin: 11/05/23 08:47 Dose: Not Given Magnesium Hydroxide (Milk Of Magnesia 30 Ml Oral.Susp) 30 ml PO DAILY PRN PRN Reason: Constipation Last Admin: 10/20/23 21:41 Dose: 30 ml Memantine (Memantine Hcl 5 Mg Tablet) [address] [facility] Last Admin: 11/05/23 08:42 Dose: 5 mg Metoprolol Tartrate (Metoprolol Tartrate 25 Mg Tablet) [address] [facility]; Protocol Last Admin: 11/05/23 08:47 Dose: Not Given Trazodone HCl (Trazodone Hcl 50 Mg Tablet) 50 mg PO BEDTIME MRX1 PRN PRN Reason: Insomnia Last Admin: 10/27/23 20:37 Dose: 50 mg Vitamin D (Cholecalciferol (Vitamin D3) 25 Mcg Tablet) [address] [facility] Last Admin: 11/05/23 08:42 Dose: 25 mcg Allergies Allergies Allergy/AdvReac Type Severity Reaction Status Date / Time No Known Allergies Allergy Verified 10/19/23 15:28 Assessment & Plan Assessment & Plan (1) Major neurocognitive disorder due to another medical condition, with psychotic disturbance: Status: Acute Code(s): F02.82 - Dementia in other diseases classified elsewhere, unspecified severity, with psychotic disturbance (2) Persistent atrial fibrillation: Status: Acute Code(s): I48.19 - Other persistent atrial fibrillation (3) CAD (coronary artery disease): Qualifiers: Associated angina: with unstable angina Coronary Disease-Associated Artery/Lesion type: unspecified vessel or lesion type [place] vs. transplanted heart: [place] heart Qualified Code(s): I25.110 - Atherosclerotic heart disease of [place] coronary artery with unstable angina pectoris Status: Acute Code(s): I25.10 - Atherosclerotic heart disease of [place] coronary artery without angina pectoris (4) HTN (hypertension): Status: Acute Code(s): I10 - Essential (primary) hypertension (5) Hyperlipidemia: Status: Acute Code(s): E78.5 - Hyperlipidemia, unspecified Plan The patient is an 83-year-old male with a prior history of CAD, HTN, atrial fibrillation and other medical comorbidities with no prior psychiatric illness referred to the emergency room for the onset of psychosis. Also there is no report of a possible cognitive impairment. At the moment of the interview the patient denies new symptoms he is pleasant cooperative and he is willing to follow treatment. Plan 1. Discharged today Reason for continued inpatient stay Substantial Risk for: inability to function, rapid decompensation and med/psych decompensation Time Spent With Patient Time: Total time managing care of this patient today __20__ minutes.
== END 2023-11-05 11:19 | disposition home or self-care (01) | DRG 57 ==
LOC: HO.ED 10-20 06:54 → HO.PGERI 10-20 11:30
PROVIDERS: Emergency Medicine; Physician Assistant; Social Worker; Student in an Organized Health Care Education/Training Program; Admitting Provider Psychiatry & Neurology Psychiatry; Emergency Provider Emergency Medicine Emergency Medical Services; PCP Internal Medicine; Visit Provider Psychiatry & Neurology Psychiatry
DX: I69.919 Unspecified symptoms and signs involving cognitive functions following unspecified cerebrovascular disease (principal); I48.19 Other persistent atrial fibrillation; F01.52 Vascular dementia, unspecified severity, with psychotic disturbance; I25.118 Atherosclerotic heart disease of native coronary artery with other forms of angina pectoris; Z95.5 Presence of coronary angioplasty implant and graft; I10 Essential (primary) hypertension; E78.5 Hyperlipidemia, unspecified; Z20.822 Contact with and (suspected) exposure to COVID-19; Z79.01 Long term (current) use of anticoagulants; Z79.899 Other long term (current) drug therapy
CPT/HCPCS: 36415; 70450; 71045; 80053; 80061; 80076; 80307; 81003; 82550; 82607; 82947; 83735; 84146; 84484; 85025; 87502; 87635; 93005; 99285

== ENCOUNTER → 2023-10-19 15:42 | Outpatient (BNV) | payer MEDICARE, SELFPAY ==
[2022-05-27 10:38] VITALS: BP 118/78; BMI 24.3
== END ==
PROVIDERS: Admitting Provider Psychiatry & Neurology Psychiatry; Emergency Provider Emergency Medicine Emergency Medical Services; PCP Internal Medicine; Visit Provider Internal Medicine Cardiovascular Disease
DX: I45.81 Long QT syndrome (principal)
CPT/HCPCS: 93010

== ENCOUNTER 2023-10-20 11:26 | Outpatient (BNV) | payer MEDICARE, SELFPAY ==
[2022-05-27 10:38] VITALS: BP 118/78; BMI 24.3
== END 2023-10-23 09:54 ==
PROVIDERS: Admitting Provider Psychiatry & Neurology Psychiatry; Emergency Provider Emergency Medicine Emergency Medical Services; PCP Internal Medicine; Visit Provider Internal Medicine Cardiovascular Disease
DX: R07.9 Chest pain, unspecified (principal)
CPT/HCPCS: 93010

== ENCOUNTER 2023-10-20 11:26 | Outpatient (BNV) | payer MEDICARE, SELFPAY ==
[2022-05-27 10:38] VITALS: BP 118/78; BMI 24.3
== END 2023-10-22 12:02 ==
PROVIDERS: Admitting Provider Psychiatry & Neurology Psychiatry; Emergency Provider Emergency Medicine Emergency Medical Services; PCP Internal Medicine; Visit Provider Internal Medicine Cardiovascular Disease
DX: R07.9 Chest pain, unspecified (principal)
CPT/HCPCS: 93010

== ENCOUNTER 2023-10-20 11:26 | Outpatient (BNV) | payer MEDICARE, SELFPAY ==
[2022-05-27 10:38] VITALS: BP 118/78; BMI 24.3
== END 2023-10-29 10:15 ==
PROVIDERS: Admitting Provider Psychiatry & Neurology Psychiatry; Emergency Provider Emergency Medicine Emergency Medical Services; PCP Internal Medicine; Visit Provider Internal Medicine Cardiovascular Disease
DX: I48.19 Other persistent atrial fibrillation (principal); R94.31 Abnormal electrocardiogram [ECG] [EKG]
CPT/HCPCS: 93010

== ENCOUNTER 2023-10-20 11:26 | Outpatient (BNV) | payer MEDICARE, SELFPAY ==
[2022-05-27 10:38] VITALS: BP 118/78; BMI 24.3
== END 2023-10-30 10:38 ==
PROVIDERS: Admitting Provider Psychiatry & Neurology Psychiatry; Emergency Provider Emergency Medicine Emergency Medical Services; PCP Internal Medicine; Visit Provider Internal Medicine Cardiovascular Disease
DX: R00.2 Palpitations (principal)
CPT/HCPCS: 93010

== ENCOUNTER → 2023-10-20 11:26 | Outpatient (BNV) | payer MEDICARE, SELFPAY ==
[2022-05-27 10:38] VITALS: BP 118/78; BMI 24.3
== END ==
PROVIDERS: Admitting Provider Psychiatry & Neurology Psychiatry; Emergency Provider Emergency Medicine Emergency Medical Services; PCP Internal Medicine; Visit Provider Psychiatry & Neurology Psychiatry
DX: F03.92 Unspecified dementia, unspecified severity, with psychotic disturbance (principal); I48.19 Other persistent atrial fibrillation; I25.110 Atherosclerotic heart disease of native coronary artery with unstable angina pectoris; I10 Essential (primary) hypertension; E78.5 Hyperlipidemia, unspecified
CPT/HCPCS: 90792; 99231; 99232; 99238; 99499

== ENCOUNTER 2023-12-25 08:47 | Outpatient (REF) | payer MEDICARE, SELFPAY ==
[2022-05-27 10:38] VITALS: BP 118/78; BMI 24.3
[2023-12-25 11:05] LABS: MANUAL DIFF FLAG NO
[2023-12-25 11:12] LABS: Basophils Absolute Auto 0.1 X10*3/uL (0.0-0.2); Basophils Percent Auto 0.8 % (0-2); Eosinophils Absolute Auto 0.1 X10*3/uL (0.0-0.4); Eosinophils Percent Auto 1.4 % (0-4); Hematocrit 44.7 % (42.0-52.0); Hemoglobin 15.6 g/dl (14.0-18.0); Imm Gran Abs Auto 0.03 X10*3/uL (0.00-0.03); Imm Gran Pct Auto 0.4 % (0.0-0.4); Lymphocytes Absolute Auto 1.6 X10*3/uL (1.2-4.9); Lymphocytes Percent Auto 22.1 % (20-40); Mean Corpuscular HGB Conc 34.9 g/dl (31.0-36.0); Mean Corpuscular Hemoglobin 32.6 pg (27.0-33.0); Mean Corpuscular Volume 93.3 fL (80.0-98.0); Mean Platelet Volume 10.1 fL (9.4-12.4); Monocytes Absolute Auto 0.6 X10*3/uL (0.1-1.2); Monocytes Percent Auto 8.6 % (2-11); Neutrophils Absolute Auto 4.7 x10*3/uL (2.0-8.3); Neutrophils Percent Auto 66.7 % (45-73); Platelet Count 204 X10*3/uL (160-400); Red Blood Count 4.79 X10*6/uL (4.60-5.80); Red Cell Distribution Width 12.4 % (11.0-16.0); White Blood Count 7.1 X10*3/uL (4.8-10.8)
[2023-12-25 11:18] LABS: Estimated Average Glucose 131 mg/dL; Hemoglobin A1c % 6.2 % (<6.0)
[2023-12-25 11:36] LABS: Alanine Aminotransferase 14 U/L (0-40); Albumin Level 3.7 g/dL (3.5-5.0); Alkaline Phosphatase 52 U/L (39-117); Anion Gap 9 (12-20); Aspartate Amino Transferase 19 U/L (5-37); Bilirubin Total 1.4 mg/dL (0.0-1.0); Blood Urea Nitrogen 17 mg/dL (9-16); Calcium 9.6 mg/dL (8.4-10.2); Carbon Dioxide 31 mmol/L (22-29); Chloride 104 mmol/L (96-108); Cholesterol 156 mg/dL (<200); Estimated Glomerular Filt Rate > 60; Glucose Random 126 mg/dL (60-115); HDL Cholesterol 55 mg/dL (>40); LDL Cholesterol Calculated 80 mg/dL (<100); Potassium 4.4 mmol/L (3.3-5.1); Sodium 140 mmol/L (135-145); Total Protein 6.7 g/dL (6.5-8.0); Triglycerides 107 mg/dL (<150)
[2023-12-25 11:44] LABS: TSH reflex Free T4 1.08 uIU/mL (0.32-4.0); Vitamin D 25-OH Total 38.5 ng/mL (>30)
[2023-12-25 11:47] LABS: Vitamin B12 263 pg/mL (200-900)
== END 2023-12-25 08:48 | disposition home or self-care (01) ==
LOC: HO.10HDL 08:47
PROVIDERS: Visit Provider Internal Medicine
DX: I10 Essential (primary) hypertension (principal); E78.00 Pure hypercholesterolemia, unspecified; R73.01 Impaired fasting glucose; E55.9 Vitamin D deficiency, unspecified; E53.8 Deficiency of other specified B group vitamins
CPT/HCPCS: 36415; 80053; 80061; 82306; 82607; 83036; 84443; 85025

== ENCOUNTER 2023-12-31 13:43 | Outpatient (AMB) | payer MEDICARE, SELFPAY ==
[2022-05-27 10:38] VITALS: BP 118/78; BMI 24.3
--- NOTE | 2023-12-31 13:52 | MHC.OFFVIS ---
Intake Vital Signs 12/31/23 13:53 Height 5 ft 9 in Weight 138 lb 14.259 oz BMI 20.5 BP 120/74 Blood Pressure Location Lt brachial Position Sitting Pulse 82 Intake Visit Reasons: 2 mth fu Intake Note: 2 month follow-up hearts doing ok Sander Hand Required: No Garage Door Service Technician: Garage Door Service Technician Present Accompanied by: Spouse Allergies No Known Allergies Allergy (Verified 10/19/23 15:28) Medication List - Last Reconciled 12/31/23 by Hiro Wilson MD amlodipine 2.5 mg PO DAILY apixaban (Eliquis) 5 mg PO BID cholecalciferol (vitamin D3) 25 mcg PO DAILY coenzyme Q10 (Co Q-10) 30 mg PO DAILY famotidine (Pepcid) 40 mg PO [place] 30 days haloperidol 2 mg (2 x 1 mg) PO BID 30 days isosorbide mononitrate ER 30 mg PO DAILY lisinopril 10 mg PO DAILY 30 days metoprolol tartrate 25 mg (1/2 x 50 mg) PO BID 30 days sertraline 75 mg PO DAILY HPI HPI Comments History of Present Illness Details Claus comes for follow-up, accompanied by his . He was recently admitted with psychosocial decompensation. Since then as per the he had stopped eating as lost weight. He is back home now on current medications as per the his behavioral status has improved. He is eating better but not drink enough water. Denies any cardiac symptoms. Denies any symptoms of shortness of breath, angina, orthopnea, PND, prolonged palpitation irregular heartbeat. Takes all his medications as prescribed. [facility] Medical History Paroxysmal atrial fibrillation Atrial fibrillation status post cardioversion History of cardioversion Exertional angina Ischemic cardiomyopathy NSTEMI (non-ST elevated myocardial infarction) CAD (coronary artery disease) HTN (hypertension) Hyperlipidemia Surgical History Stented coronary artery Hx of cardiac cath Hx of prostatectomy History of hip replacement Family History Father Diabetes Mother No problems noted. Social History Household Members: Spouse Housing: House Do you presently have visiting nurse or other home services: No Unable to assess alcohol history related to: Unknown Alcohol intake: current Alcohol intake frequency: holidays/special occasions only Alcohol type: beer Patient Tobacco Use Status: Never used Tobacco e-Cigarette/Vaping Use: Never Used Second Hand Smoke Exposure: No Advance Directives Date on File: 03/12/21 service: No Current occupational status: retired Sexual orientation: Straight/Heterosexual Review of Systems Const Denies chills, Denies fatigue, Denies fever(s), Denies frequent falls, Denies weakness, Denies weight gain and Denies weight loss ENT Denies dizziness Card Denies chest pain, Denies leg edema, Denies lightheadedness, Denies palpitations, Denies dyspnea, Denies dyspnea on exertion, Denies orthopnea and Denies other (loss of consciousness) Resp Denies cough, Denies dyspnea and Denies dyspnea on exertion GI Denies hematochezia and Denies change in stool character Musc Denies abnormal gait, Denies muscle weakness, Denies numbness, Denies radiating pain into limb and Denies tingling Neuro Denies abnormal gait, Denies dizziness, Denies frequent falls, Denies numbness, Denies tingling and Denies weakness Endo Denies fatigue and Denies palpitations Physical Exam Vital Signs: Last Vital Signs Pulse 82 12/31/23 13:53 BP 120/74 12/31/23 13:53 BMI result Body Mass Index 20.5 Const General: cooperative, comfortable, no acute distress, alert and awake Nutritional Appearance: underweight and other (Frail elderly man) Orientation/consciousness: patient oriented x3 Limitations: no limitations Neck Neck: Yes trachea midline, Yes supple and Yes no JVD Resp Effort & Inspection: normal respiratory effort Auscultation: clear to auscultation bilaterally Cardio Jugular venous distension: no JVD Palpation: normal PMI Rate: regular rate Rhythm: abnormal rhythm irregularly irregular Heart sounds: S1 normal heart sound present and S2 normal heart sound present GI Auscultation: normal bowel sounds Skin General skin exam: no rashes or lesions noted Neuro General: patient oriented x3 and no focal motor deficits Extrem General: Yes no clubbing, cyanosis or edema Psych Appearance: grossly normal Assessment & Plan Assessment & Plan (1) CAD (coronary artery disease): Comment: inferior wall ND, status post stent Code(s): I25.10 - Atherosclerotic heart disease of [place] coronary artery without angina pectoris Qualifiers: Associated angina: with unstable angina Coronary Disease-Associated Artery/Lesion type: unspecified vessel or lesion type [place] vs. transplanted heart: [place] heart Qualified Code(s): I25.110 - Atherosclerotic heart disease of [place] coronary artery with unstable angina pectoris Plan: Coronary artery disease, stable with no symptoms of angina on current medical therapy. Continue current amlodipine, isosorbide metoprolol therapy. He is developed significant behavioral issues and has vascular dementia at this point time which is going to probably Trump all his medical issues at this point time. Currently on full oral anticoagulation with apixaban and would therefore avoid antiplatelet agent. Currently not on statin therapy and this is appropriate at this point in time. Advised to continue maintain activity level as tolerated. (2) Persistent atrial fibrillation: Code(s): I48.19 - Other persistent atrial fibrillation Plan: Persistent atrial fibrillation, has failed rhythm control approach could not tolerate antiarrhythmic drug therapy. Currently without any signs or symptoms of heart failure. Continue rate control approach. Continue full oral anticoagulation Eliquis. Continue monitor weight at home. Once weight drops below 130 will need to switch his Eliquis dose to 2.5 mg b.i.d.. Follow up in the clinic in 6 months time, sooner p.r.n.. Thank you for allowing me to partake in his care Medications: Changed From amlodipine 2.5 mg PO DAILY 90 tabs 3RF To amlodipine 2.5 mg PO DAILY Coding Level of Care Code Est Pt Level 4 (44459) Diagnoses CAD (coronary artery disease) I25.110 Associated angina: with unstable angina Coronary Disease-Associated Artery/Lesion type: unspecified vessel or lesion type [place] vs. transplanted heart: [place] heart Persistent atrial fibrillation I48.19
[2023-12-31 13:53] VITALS: BP 120/74; PULSE 82; BMI 20.5
== END 2023-12-31 14:19 | disposition home or self-care (01) ==
PROVIDERS: PCP Internal Medicine; Visit Provider Internal Medicine Cardiovascular Disease
DX: I25.110 Atherosclerotic heart disease of native coronary artery with unstable angina pectoris (principal); I48.19 Other persistent atrial fibrillation
CPT/HCPCS: 99214

== ENCOUNTER → 2023-12-31 13:43 | Outpatient (BNVA) | payer MEDICARE, SELFPAY ==
[2022-05-27 10:38] VITALS: BP 118/78; BMI 24.3
== END ==
PROVIDERS: PCP Internal Medicine; Visit Provider Internal Medicine Cardiovascular Disease
DX: I25.110 Atherosclerotic heart disease of native coronary artery with unstable angina pectoris (principal); I48.19 Other persistent atrial fibrillation
CPT/HCPCS: 99212

== ENCOUNTER 2024-04-17 08:56 | Emergency (ER) | payer MEDICARE, SELFPAY ==
[2022-05-27 10:38] VITALS: BP 118/78; BMI 24.3
--- NOTE | ~2024-04-17 | XR_ITS ---
EXAMINATION: XR HIP, RIGHT CLINICAL INFORMATION: Pain, fall. COMPARISON: Radiograph right hip 04/17/2020. TECHNIQUE: Two views of the right hip. FINDINGS: No acute fracture or dislocation. Severe degenerative osteoarthritis of the right hip with [id number] contact and sclerosis of the superolateral femoral head. Symmetric SI joints. Pubic symphysis and pelvic ring are maintained. Numerous pelvic calcifications, likely phleboliths. Scattered atherosclerotic disease. XR/XR hip RT w PEL1V IMPRESSION: 1. No acute fracture or dislocation. 2. 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 Further characterization with an MRI of the right hip could be obtained as clinically warranted.
--- NOTE | ~2024-04-17 | XR_ITS ---
EXAMINATION: XR ANKLE, LEFT XR FOOT, LEFT CLINICAL INFORMATION: Pain and swelling following a fall. COMPARISON: None available. TECHNIQUE: AP, oblique, and lateral views of the left ankle and left foot. FINDINGS: Faint, somewhat linear lucency through the distal fibular metaphysis which could represent an oblique, nondisplaced fracture. Correlate for focal tenderness. The ankle mortise is maintained. No joint space narrowing or marginal osteophytes. No talar osteochondral lesion. No abnormal soft tissue calcification. Mild circumferential soft tissue swelling. No tarsal fracture. Corticated ossifications plantar to the 2nd proximal phalangeal base, consistent with a remote injury. Mild joint space narrowing with tiny marginal osteophytes at the dorsal talonavicular joint. Tiny plantar calcaneal spur. XR/XR foot LT min 3V IMPRESSION: 1. Faint, somewhat linear lucency through the distal fibular metaphysis which could represent an oblique, nondisplaced fracture. Correlate for focal tenderness. Mild circumferential soft tissue swelling. 2. Mild degenerative arthritis at the dorsal talonavicular joint. 3. Tiny plantar calcaneal spur.
--- NOTE | ~2024-04-17 | XR_ITS ---
EXAMINATION: XR ANKLE, LEFT XR FOOT, LEFT CLINICAL INFORMATION: Pain and swelling following a fall. COMPARISON: None available. TECHNIQUE: AP, oblique, and lateral views of the left ankle and left foot. FINDINGS: Faint, somewhat linear lucency through the distal fibular metaphysis which could represent an oblique, nondisplaced fracture. Correlate for focal tenderness. The ankle mortise is maintained. No joint space narrowing or marginal osteophytes. No talar osteochondral lesion. No abnormal soft tissue calcification. Mild circumferential soft tissue swelling. No tarsal fracture. Corticated ossifications plantar to the 2nd proximal phalangeal base, consistent with a remote injury. Mild joint space narrowing with tiny marginal osteophytes at the dorsal talonavicular joint. Tiny plantar calcaneal spur. XR/XR ankle LT min 3V IMPRESSION: 1. Faint, somewhat linear lucency through the distal fibular metaphysis which could represent an oblique, nondisplaced fracture. Correlate for focal tenderness. Mild circumferential soft tissue swelling. 2. Mild degenerative arthritis at the dorsal talonavicular joint. 3. Tiny plantar calcaneal spur.
--- NOTE | ~2024-04-17 | XR_ITS ---
EXAMINATION: XR LUMBOSACRAL SPINE CLINICAL INFORMATION: Pain after fall COMPARISON: 01/31/2018 TECHNIQUE: Three views of the lumbosacral spine. FINDINGS: Mild dextroscoliosis of the lower thoracic and lumbar spine. Multilevel disc degenerative change with osteophyte formation. Degenerative disc disease and lumbar spine is worst at L2-L3. Compared to 01/31/2018, there is worsening loss of disc height at L3-L4 and L4-L5. Chronic mild degenerative retrolisthesis at L2-L3, L3-L4 at L5-S1. Severe facet arthropathy at L4-5 and L5-S1 and there is chronic 0.6 cm of grade 1 anterolisthesis of L4 on L5. The lumbar vertebral body heights are maintained. No acute fractures. Sacrum and sacroiliac joints are intact. Severe degenerative loss of joint space, subarticular sclerosis and subarticular cystic change at the right hip. XR/XR lumbar spine 2-3V IMPRESSION: * No evidence of fractures. No acute abnormalities in the degenerated lumbar spine. * Chronic multilevel degenerative disc disease and multilevel vertebral subluxations, including 0.6 cm of chronic grade 1 anterolisthesis at L4-L5.
--- NOTE | ~2024-04-17 | XR_ITS ---
EXAMINATION: XR KNEE, RIGHT CLINICAL INFORMATION: Pain, fall. COMPARISON: None available. TECHNIQUE: Four views of the right knee. FINDINGS: No acute fracture or dislocation. Moderate tricompartmental degenerative osteoarthritis. Faint chondrocalcinosis. No significant joint effusion. Scattered vascular calcifications. XR/XR knee RT 3V IMPRESSION: 1. No acute fracture or dislocation. 2. Moderate tricompartmental degenerative osteoarthritis. 3. Faint chondrocalcinosis.
[2024-04-17 09:22] VITALS: BP 150/120; PULSE 62; O2SAT 98; BMI 13.9
[2024-04-17 09:29] VITALS: BP 158/113; PULSE 86; PULSE 88; RESP 17; TEMP 36.7; O2SAT 95
[2024-04-17 09:39] VITALS: BP 158/113; PULSE 88; RESP 17; TEMP 36.7; O2SAT 95
--- NOTE | 2024-04-17 09:47 | ED_ITS ---
HPI - Fall General Chief Complaint: Fall Stated Complaint: L Foot Swelling R Leg Pain Time Seen by Provider: 04/17/24 09:06 Source: patient, family and EMS Mode of arrival: EMS Limitations: no limitations History of Present Illness ED Provider: Fawn Richmond PA-C HPI Narrative: 83 yo male with history of vascular dementia, history of HTN, HLD, CAD, AFib on Eliquis, history of psychosis requiring inpatient geriatric psychiatric care who presents to the ER from home with his family for evaluation of left foot pain, swelling and bruising after a fall 10 days ago along with new reports of shooting right leg pains. History was obtained with the assistance of the patient's daughter and who were at the bedside. Ten days ago patient was trimming some bushes when he fell off a porch. He injured his left foot, fell onto all fours. He did not hit his head or lose consciousness. Has been ambulating with a walker since then. He has had worsening bruising and swelling of the left foot. Daughter reports since last night he was c/o shooting pain his right hip down his leg. They had a very hard time getting him up the stairs last night in his home to the bedroom. His daughter from [place] arrived yesterday. She noted that there was significant bruising and swelling of the left foot with a small scratch and some redness. He has not gotten evaluated after the fall 10 days ago. He denies any preceding chest pain, dizziness, lightheadedness prior to his fall. Denies history of frequent fall He was very uncomfortable again this morning so 9 was called for further evaluation. MD complaint: fall Onset (ago): day(s) () Fall from: standing Fall witnessed: yes, by family Place fall occurred: home Loss of consciousness: none Prolonged down time: no Context: tripped/slipped Location of injury - extremities: left: ankle and foot Severity: moderate Associated symptoms (after fall): other (right leg pain, back pain) Related Data Home Medications ?Medication ?Instructions ?Recorded ?Confirmed sertraline 50 mg tablet 100 mg PO DAILY 12/31/23 04/17/24 coenzyme Q10 100 mg capsule 100 mg PO DAILY 04/17/24 04/17/24 (CoQ-10) cyanocobalamin (vitamin B-12) 1,000 mcg PO DAILY 04/17/24 04/17/24 1,000 mcg tablet famotidine 20 mg tablet 20 mg PO DAILY 04/17/24 04/17/24 haloperidol 1 mg tablet 1 mg PO QAM 04/17/24 04/17/24 haloperidol 1 mg tablet 2 mg PO BEDTIME 04/17/24 04/17/24 lisinopril 2.5 mg tablet 2.5 mg PO DAILY 04/17/24 04/17/24 Previous Rx's ?Medication ?Instructions ?Recorded apixaban 5 mg tablet (Eliquis) 5 mg PO BID #60 tabs 11/05/23 cholecalciferol (vitamin D3) 25 25 mcg PO DAILY #30 tabs 11/05/23 mcg (1,000 unit) tablet metoprolol tartrate 50 mg tablet 25 mg (1/2 x 50 mg) PO BID 30 days 11/05/23 #30 tabs isosorbide mononitrate 30 mg 30 mg PO DAILY #30 tabs 01/06/24 tablet,extended release 24 hr Allergies Allergy/AdvReac Type Severity Reaction Status Date / Time No Known Allergies Allergy Verified 04/17/24 09:27 Review of Systems 2 Review of Systems: Yes all other systems are reviewed and are negative FOR[facility]LY [facility] Past Medical History Medical History Paroxysmal atrial fibrillation Atrial fibrillation status post cardioversion History of cardioversion Exertional angina Ischemic cardiomyopathy NSTEMI (non-ST elevated myocardial infarction) CAD (coronary artery disease) HTN (hypertension) Hyperlipidemia Surgical History Stented coronary artery Hx of cardiac cath Hx of prostatectomy History of hip replacement Family History Family History Father Diabetes Mother No problems noted. Social History Social History Household Members: Spouse Housing: House Do you presently have visiting nurse or other home services: No Unable to assess alcohol history related to: Unknown Alcohol intake: current Alcohol intake frequency: holidays/special occasions only Alcohol type: beer Patient Tobacco Use Status: Never used Tobacco Smoked in Last 30 Days: No e-Cigarette/Vaping Use: Never Used Second Hand Smoke Exposure: No Use of substances other than those prescribed or required for medical reasons: No Advance Directives: Yes Advance Directives on File: Yes Advance Directives Date on File: 11/06/23 Do you have a plan to hurt others: No Plan service: No Current occupational status: retired Sexual orientation: Straight/Heterosexual Physical Exam 2 Vital Signs: Vital Signs: Last Vital Signs Temp 98.0 F 04/17/24 10:43 Pulse 75 04/17/24 10:43 Resp 15 04/17/24 10:43 BP 158/107 H 04/17/24 10:43 Pulse Ox 97 04/17/24 10:43 O2 Del Method Room Air 04/17/24 10:43 BMI result Body Mass Index 13.9 Appearance: Alert, frail elderly man resting comfortably in the stretcher. Oriented X2. No acute distress. Head: normocephalic, atraumatic. Eyes: Pupils equal, round and reactive to light. ENT: Pharynx normal. No tonsillar swelling or exudate. Neck: Normal inspection. Neck supple. CVS: Normal heart rate and rhythm. Pulses normal. Respiratory: No respiratory distress. Breath sounds normal. Abdomen: Soft and nontender. +BS x4 Skin: Skin warm and dry. Normal skin color. Normal skin turgor. No rashes. Extremities: Left ankle and foot with moderate generalized swelling, old ecchymosis of the ankle and foot with purple discoloration of the toes. No point tenderness with the metatarsals. Superficial abrasion with some erythema of the ankle. No point tenderness. No pain with dorsiflexion or plantar flexion. No obvious deformity. Foot is warm and well perfused with 2+ DP and PT pulse. Mild tenderness of the right hip with full passive range of motion. Full passive range of motion of the right knee as well. Right knee is nontender No edema in the right lower extremity Neuro/psych: Oriented X 2. Or historian which is his baseline Strength is equal and symmetrical throughout. CN II-XII intact. Normal speech and cognition. Course Reevaluation(s) Reevaluation #1: Physician observation started at 12:44. Patient placed in physician observation because patient is awaiting physical therapy evaluation and case management consultation. At the time observation was started patient's vital signs were stable. Patient is alert, oriented, poor historian. Neuro exam is non-focal. CV: RRR and lungs are clear. Will continue to monitor. Time: 13:38 Medications Administered Generic Name Dose Route Start Last Admin Trade Name David PRN Reason Stop Dose Admin Acetaminophen 975 mg 04/17/24 12:45 04/17/24 12:56 Acetaminophen 325 Mg Tablet PO 975 mg Q8H JUAN ANTONIO Administration Amoxicillin/Clavulanate Potassium 500 mg 04/17/24 12:45 04/17/24 12:56 Amoxicillin/Potassium Clav 500 Mg Tablet PO 500 mg BID JUAN ANTONIO Administration Medical Decision Making Medical Decision Making MDM Narrative: 83-year-old male with history of vascular dementia, AFib on Eliquis who presents to the ER for evaluation of right leg pain and left ankle and foot swelling, bruising after he fell off of his porch 10 days ago while trying to trim hedges. No head strike or LOC at the time. Patient has been ambulating at home with his walker. The last 2 days he has complained of pain in the right lower extremity from the hip down to the knee, shooting in nature and worse with certain positions. Family reports he has been more kyphotic and bent over, difficulty standing up straight due to pain in his lower back. He has been having a harder time walking up the stairs and there was concern for safety at home so he is brought to the ER for further evaluation. Left lower leg, ankle, and foot are ecchymotic with slight swelling. There is an area that is concerning for possible early, mild cellulitis. No evidence of deeper infection or septic joint. X-ray of the left ankle and foot were obtained, there was a question of a possible nondisplaced fracture of the distal fibular metaphysis. Unable to appreciate this on independent review. Orthopedics was consulted who are in agreement. Will hold off on placing in a walking boot or splint at this time. Family concerned for safety mobility at home. They are wishing for physical therapy evaluation and hopes to get physical therapy and additional services at home. Other medical workup is unremarkable. Labs are stable. You had a is negative for infection. Other x-rays were reviewed, no acute fractures but he has chronic degenerative changes and arthritis, specifically in the right hip. He has an orthopedist at [facility] and has deferred surgery due to other comorbidities and quality of life. Patient placed in physician observation pending PT evaluation and case management consultation. 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 He was placed in Bon wrap. He will follow up with Orthopedics in the clinic in 2 weeks. He is pending physical therapy evaluation Lab Data MDM Lab Attestation statement: I reviewed the patient's lab results. No leukocytosis, normal renal function, no significant metabolic derangement, urinalysis negative for infection 04/17/24 10:15 04/17/24 10:15 Labs: Lab Results 04/17/24 04/17/24 Range/Units 10:15 10:44 WBC 9.2 (4.8-10.8) X10*3/uL RBC 4.39 L (4.60-5.80) X10*6/uL Hgb 14.3 (14.0-18.0) g/dl Hct 41.1 L (42.0-52.0) % MCV 93.6 (80.0-98.0) fL MCH 32.6 (27.0-33.0) pg MCHC 34.8 (31.0-36.0) g/dl RDW 12.3 (11.0-16.0) % Plt Count 185 (160-400) X10*3/uL MPV 9.6 (9.4-12.4) fL Immature Gran % (Auto) 0.3 (0.0-0.4) % Neut % (Auto) 76.1 H (45-73) % Lymph % (Auto) 13.8 L (20-40) % [place] % (Auto) 8.3 (2-11) % Eos % (Auto) 0.8 (0-4) % Baso % (Auto) 0.7 (0-2) % Lymph # (Auto) 1.3 (1.2-4.9) X10*3/uL [place] # (Auto) 0.8 (0.1-1.2) X10*3/uL Eos # (Auto) 0.1 (0.0-0.4) X10*3/uL Baso # (Auto) 0.1 (0.0-0.2) X10*3/uL Abs Immat Gran (auto) 0.03 (0.00-0.03) X10*3/uL Absolute Neuts (auto) 7.0 (2.0-8.3) x10*3/uL Absolute Nucleated RBC 0.000 (0.0-0.012) X10*3/uL Nucleated RBC % (auto) 0.0 (0.0-0.2) /100WBC Sodium 138 (135-145) mmol/L Potassium 4.1 (3.3-5.1) mmol/L Chloride 100 (96-108) mmol/L Carbon Dioxide 30 H (22-29) mmol/L Anion Gap 12 (12-20) BUN 19 H (9-16) mg/dL Creatinine 0.91 (0.5-1.4) mg/dL Estim Creat Clear Calc 33.7 Estimated GFR > 60 Random Glucose 135 H (60-115) mg/dL Calcium 9.9 (8.4-10.2) mg/dL Urine Color Yellow Urine Appearance Clear Urine pH 7.0 (5.0-9.0) Ur Specific [place] 1.020 (1.005-1.025) Urine Protein Negative (Neg-Trace) mg/dL Urine Glucose (UA) Negative (Negative) mg/dL Urine Ketones Negative (Negative) mg/dL Urine Blood Negative (Negative) Urine Nitrite Negative (Negative) Ur Leukocyte Esterase Negative (Negative) Independent Interpretation I performed an independent interpretation of an: Plain X-Ray Interpretation: X-ray of the left ankle was reviewed, no acute fracture appreciated Radiology Impression Discussion of test interpretation with radiology: I have reviewed the radiologist's reading. Radiologist Impression: XR/XR lumbar spine 2-3V IMPRESSION: * No evidence of fractures. No acute abnormalities in the degenerated lumbar spine. * Chronic multilevel degenerative disc disease and multilevel vertebral subluxations, including 0.6 cm of chronic grade 1 anterolisthesis at L4-L5. XR/XR knee RT 3V IMPRESSION: 1. No acute fracture or dislocation. 2. Moderate tricompartmental degenerative osteoarthritis. 3. Faint chondrocalcinosis. XR/XR hip RT w PEL1V IMPRESSION: 1. No acute fracture or dislocation. 2. 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 Further characterization with an MRI of the right hip could be obtained as clinically warranted. XR/XR foot LT min 3V IMPRESSION: 1. Faint, somewhat linear lucency through the distal fibular metaphysis which could represent an oblique, nondisplaced fracture. Correlate for focal tenderness. Mild circumferential soft tissue swelling. 2. Mild degenerative arthritis at the dorsal talonavicular joint. 3. Tiny plantar calcaneal spur Independent Historian Clinical information obtained from an independent historian. History obtained from or confirmed by: Spouse, EMS and Other (Adult daughter at the bedside) External Record Review External record reviewed: Office record, Outpatient record, Prior outpatient labs and Prior outpatient radiology Tests considered The following testing was considered but not selected: CT scan of the head and neck were considered however the date of injury was 10 days ago, low clinical suspicion for any intracranial abnormality Prescription Management I considered prescription management with: Pain Medication and Antibiotic Chronic Conditions Patient?s care impacted by: Hypertension and Other (Vascular dementia, atrial fibrillation on Eliquis) Social Determinants Patient?s care significantly limited by Social Determinants of Health including: Problems related to primary support group (Patient requiring additional care at home, overall declining) Critical Care Time Critical Care Time Critical Care Time: No Discharge Plan Discharge Clinical Impression: Cellulitis of foot, left Contusion of foot, left Qualifiers: Encounter type: initial encounter Qualified Code(s): S90.32XA - Contusion of left foot, initial encounter Osteoarthritis of right hip Qualifiers: Osteoarthritis type: unspecified Qualified Code(s): M16.11 - Unilateral primary osteoarthritis, right hip Patient Disposition: Still a Patient Prescriptions: No Action isosorbide mononitrate 30 mg tablet extended release 24 hr 30 mg PO DAILY Qty: 30 11RF metoprolol tartrate 50 mg tablet 25 mg PO BID 30 Days Qty: 30 0RF cholecalciferol (vitamin D3) 25 mcg (1,000 unit) Tablet 25 mcg PO DAILY Qty: 30 0RF Eliquis 5 mg tablet 5 mg PO BID Qty: 60 0RF cyanocobalamin (vitamin B-12) 1,000 mcg Tablet 1,000 mcg PO DAILY haloperidol 1 mg tablet 1 mg PO QAM haloperidol 1 mg tablet 2 mg PO BEDTIME famotidine 20 mg tablet 20 mg PO DAILY lisinopril 2.5 mg tablet 2.5 mg PO DAILY coenzyme Q10 [CoQ-10] 100 mg Capsule 100 mg PO DAILY sertraline 50 mg tablet 100 mg PO DAILY Print Language: Persian
--- NOTE | 2024-04-17 09:48 | PC.NURSE ---
per EMS patient from home, family states had a witnessed mechanical fall 10 days ago and suffered an injury to his left leg, left leg appears discolored and swollen, however family called today in regards to a sharp debilitating pain in his right hip that starts at his foot and shoots up his whole leg. CMS intact in bilateral lower extremities, palpable DP and PT pulses bilaterallly. patient states he is not having pain in his left leg, but endorsing tingling and sharp pain when he moves in his right hip to his leg. patient uses a walker at baseline at home, family states the pain in his right leg started a few days ago, patient recently diagnosed with vascular dementia, poor historian, family able to provide details of fall, zaria also has hx of arthritis in his hips and sciatic pain in the past per his daughter. patient presents confused but at his basline per family, provided with urinal and educated on need for urine sample. and daughter remain at bedside at this time.
[2024-04-17 10:21] LABS: MANUAL DIFF FLAG NO
[2024-04-17 10:22] LABS: Basophils Absolute Auto 0.1 X10*3/uL (0.0-0.2); Basophils Percent Auto 0.7 % (0-2); Eosinophils Absolute Auto 0.1 X10*3/uL (0.0-0.4); Eosinophils Percent Auto 0.8 % (0-4); Hematocrit 41.1 % (42.0-52.0); Hemoglobin 14.3 g/dl (14.0-18.0); Imm Gran Abs Auto 0.03 X10*3/uL (0.00-0.03); Imm Gran Pct Auto 0.3 % (0.0-0.4); Lymphocytes Absolute Auto 1.3 X10*3/uL (1.2-4.9); Lymphocytes Percent Auto 13.8 % (20-40); Mean Corpuscular HGB Conc 34.8 g/dl (31.0-36.0); Mean Corpuscular Hemoglobin 32.6 pg (27.0-33.0); Mean Corpuscular Volume 93.6 fL (80.0-98.0); Mean Platelet Volume 9.6 fL (9.4-12.4); Monocytes Absolute Auto 0.8 X10*3/uL (0.1-1.2); Monocytes Percent Auto 8.3 % (2-11); Neutrophils Percent Auto 76.1 % (45-73); Platelet Count 185 X10*3/uL (160-400); Red Blood Count 4.39 X10*6/uL (4.60-5.80); Red Cell Distribution Width 12.3 % (11.0-16.0); White Blood Count 9.2 X10*3/uL (4.8-10.8)
[2024-04-17 10:36] LABS: Anion Gap 12 (12-20); Blood Urea Nitrogen 19 mg/dL (9-16); Calcium 9.9 mg/dL (8.4-10.2); Carbon Dioxide 30 mmol/L (22-29); Chloride 100 mmol/L (96-108); Creatinine Clr Calc Pharmacy 33.7; Estimated Glomerular Filt Rate > 60; Glucose Random 135 mg/dL (60-115); Potassium 4.1 mmol/L (3.3-5.1); Sodium 138 mmol/L (135-145)
[2024-04-17 10:43] VITALS: BP 158/107; PULSE 75; RESP 15; TEMP 36.7; O2SAT 97
--- NOTE | 2024-04-17 10:48 | PC.NURSE ---
urine sample collected and sent to lab, patient remains on engine monitor, not offering any complaints at this time, family remains at bedside
[2024-04-17 10:50] LABS: Appearance Urine Clear; Color Urine Yellow; Glucose Urine UA Negative (Negative); Leukocyte Esterase Urine Negative (Negative); Nitrite Urine Negative (Negative); Urine Blood Negative (Negative); Urine Ketones Negative (Negative); Urine Protein Negative (Neg-Trace)
--- NOTE | 2024-04-17 12:05 | PC.NURSE ---
ortho at bedside
--- NOTE | 2024-04-17 12:29 | PC.NURSE ---
stacie wrap and ice applied to affected foot, foot elevated with towel roll, case management at bedside speaking to family at this time
[2024-04-17] MEDS: Amoxicillin/Potassium Clav 500 MG TABLET PO ×2 (12:56→20:51)
[2024-04-17] MEDS: Acetaminophen 325 MG TABLET 975 MG PO ×2 (12:56→20:49)
--- NOTE | 2024-04-17 13:01 | MHC.CM.ED ---
Received consult for assessment of d/c needs: pt presents to ED from home c/o pain and difficulty walking after a fall days prior. Met with pt, spouse and dtr: pt resides with spouse who is the primary customer care consultant. He uses a walker, has grab bars, a shower chair but has no services. Pt has dementia w/STM loss features. Pt does not have medical necessity for admission - family is requesting PT eval for ? STR needs: aware that this would occur on 04/18. Receptive to broad payor based referrals - family also interested in VNA should he be able to return to home: referrals made: will await PT eval. HCP on file and verified
--- NOTE | 2024-04-17 13:12 | P.CONOP_ITS ---
History of Present Illness HPI Consult date: 04/17/24 Chief complaint: L Foot Swelling R Leg Pain S/P FALL 04/06/24 Narrative: Patient is an 83-year-old male with past medical history significant for dementia who is currently in the emergency department for evaluation for a fall, date of injury 04/04/2024. Since that time, the patient reports that he has been experiencing significant pain in his right hip, as well as [id number] discomfort in his left ankle and foot. The patient's family reports that he was sitting on steps at side, and they found him on his hands and knees at the bottom of the steps, presumably after falling. Since that time, the patient has reported significant discomfort in his right hip, with discomfort also being noted in his left foot and ankle. Patient has been ambulating with a walker since date of injury, but his family reports that he is having more difficulty doing so than baseline. Today, the patient reports that most of his pain is located in his right hip, with mild discomfort being noted in the left foot and ankle. X-rays taken in the ED today reported in area of lucency over the left distal fibula, so Orthopedics was consulted for evaluation of this area. [facility] Past Medical History Medical History Paroxysmal atrial fibrillation Atrial fibrillation status post cardioversion History of cardioversion Exertional angina Ischemic cardiomyopathy NSTEMI (non-ST elevated myocardial infarction) CAD (coronary artery disease) HTN (hypertension) Hyperlipidemia Family History Family History Father Diabetes Mother No problems noted. Surgical History Surgical History Stented coronary artery Hx of cardiac cath Hx of prostatectomy History of hip replacement Social History Social History Household Members: Spouse Housing: House Do you presently have visiting nurse or other home services: No Unable to assess alcohol history related to: Unknown Alcohol intake: current Alcohol intake frequency: holidays/special occasions only Alcohol type: beer Patient Tobacco Use Status: Never used Tobacco Smoked in Last 30 Days: No e-Cigarette/Vaping Use: Never Used Second Hand Smoke Exposure: No Use of substances other than those prescribed or required for medical reasons: No Advance Directives: Yes Advance Directives on File: Yes Advance Directives Date on File: 11/06/23 Do you have a plan to hurt others: No Plan service: No Current occupational status: retired Sexual orientation: Straight/Heterosexual Meds Allergies Allergy/AdvReac Type Severity Reaction Status Date / Time No Known Allergies Allergy Verified 04/17/24 09:27 Active Medications: Current Medications Acetaminophen (Acetaminophen 325 Mg Tablet) 975 mg PO Q8H [facility] Last Admin: 04/17/24 12:56 Dose: 975 mg Amoxicillin/Clavulanate Potassium (Amoxicillin/Potassium Clav 500 Mg Tablet) 500 mg PO BID [facility] Last Admin: 04/17/24 12:56 Dose: 500 mg Home Medications ?Medication ?Instructions ?Recorded ?Confirmed ?Last Taken ?Type amlodipine 2.5 mg tablet 2.5 mg PO DAILY 12/31/23 04/17/24 04/17/24 08:00 History sertraline 50 mg tablet 75 mg PO DAILY 12/31/23 12/31/23 Unknown History Physical Exam 2 Vital Signs: Vital Signs: Last Vital Signs Temp 98.0 F 04/17/24 10:43 Pulse 75 04/17/24 10:43 Resp 15 04/17/24 10:43 BP 158/107 H 04/17/24 10:43 Pulse Ox 97 04/17/24 10:43 O2 Del Method Room Air 04/17/24 10:43 BMI result Body Mass Index 13.9 Extrem: Other: On inspection, there is ecchymosis noted on the dorsal aspects of the 2nd to 5th digits on the left toe Mild edema noted about the left lateral ankle There is a noted area of edema and erythema on the lateral aspect of the distal left lower extremity surrounding a small abrasion that the patient reports was a result of his injury On palpation, the patient reports ?a sensation but no pain to palpation of the left lateral malleolus Patient reports mild tenderness to palpation of the erythematous and edematous area just proximal to the lateral malleolus No other tenderness to palpation at this time Sensation intact Capillary refill brisk Results Labs 04/17/24 10:15 04/17/24 10:15 Labs: Abnormal lab results 04/17/24 Range/Units 10:15 RBC 4.39 L (4.60-5.80) X10*6/uL Hct 41.1 L (42.0-52.0) % Neut % (Auto) 76.1 H (45-73) % Lymph % (Auto) 13.8 L (20-40) % Carbon Dioxide 30 H (22-29) mmol/L BUN 19 H (9-16) mg/dL Random Glucose 135 H (60-115) mg/dL H & H 04/17/24 Range/Units 10:15 Hgb 14.3 (14.0-18.0) g/dl Hct 41.1 L (42.0-52.0) % All other labs normal. Diagnostic results Hip x-ray: image reviewed (X-rays obtained in the ED today and independently reviewed by , Truman Carlin PA-C, demonstrate moderate to severe arthritis of the right hip, but no fracture or acute bony abnormality. ) Ankle/Foot x-ray: report reviewed and image reviewed (X-rays obtained in the ED today and independently reviewed by Truman ballard PA-C, demonstrate no fracture or acute bony abnormality. ) Assessment and Plan (1) Contusion of foot, left: Qualifiers: Encounter type: initial encounter Qualified Code(s): S90.32XA - Contusion of left foot, initial encounter Status: Acute Plan 1. Left ankle contusion X-rays demonstrate no fracture or acute bony abnormality at this time Patient reports no pain to palpation of the medial or lateral malleolus, or over the ankle Index of suspicion for a fracture at this time is very low Patient placed in an Bon wrap for compression by nursing during my examination Patient is advised on rest, ice, compression, elevation for alleviation of pain Weight-bearing as tolerated Continue all other recommendations per the ED Patient follow-up in 1-2 weeks in Orthopedics office after discharge, sooner if any acute concerns Procedures Date of Service Date of Service: 04/17/24
--- NOTE | 2024-04-17 13:34 | PC.NURSE ---
patient placed on hospital stretcher for comfort, bed alarm on for safety, daughter jada remains at bedside at this time
--- NOTE | 2024-04-17 14:57 | PC.NURSE ---
patient becoming intermittently agitated, attempting to get out of bed, states im going to make a call and get out of here , patient able to be redirected, daughter states sometimes at night he becomes more confuses. provider made aware, VERONIQUE mcmahon ordered incase patient becomes unable to be redirected. patient ripped off [place] catheter, commode placed in room, patient placed on commode without incident by /edt, states patient was able to void but did not have a bowel movement. patient placed back on bed, bed alarm reactivated for safety, daughter remains at bedside at this time. patient now resting comfortably on stretcher
--- NOTE | 2024-04-17 15:31 | PHA.MEDREC ---
Pharmacy Consult ? Medication Reconciliation Pharmacy has completed the medication reconciliation. Spoke with Manjula over the phone and she read off of patients medications list. It matches with claim history. She reports he finished his 7 day course of doxycycline. She states amlodipine was discontinued in December.
--- NOTE | 2024-04-17 15:55 | PC.NURSE ---
patient daughter requesting to try to get patient up to go for a walk, patient still occasionally attempting to get out of bed, per provider pt to get out of bed as tolerated. attempted to walk patient, patient unable to completely get out of bed without excessive pain. asking to be placed back on stretcher and repositioned, pt and daughter agreeable to trying to rest for now and possibly attempt later. patient placed and adjusted back on stretcher, bed alarm re activated. all safety maintained
--- NOTE | 2024-04-17 17:00 | PC.NURSE ---
patient frequently attempting to get out of bed, incontinent of urine at this time, attempts at reeducating and redirecting patient unsuccessful, patient to be medicated with PRN medication for agitation, pericare provided , linens changed and lights dimmed for comfort. daughter remains at bedside
[2024-04-17] MEDS: HaloperidoL 1 MG TABLET PO (17:08)
--- NOTE | 2024-04-17 18:08 | PC.NURSE ---
patient resting comfortably on stretcher at this time, respirations even and unlabored, no attempts to get out of bed at this time, all safety maintained.
--- NOTE | 2024-04-17 18:32 | PC.NURSE ---
patient provided with dinner tray
[2024-04-17 20:43] VITALS: BP 178/113; PULSE 83; RESP 16; TEMP 36.8; O2SAT 96
[2024-04-17] MEDS: Metoprolol Tartrate 25 MG TABLET PO (20:49)
[2024-04-17] MEDS: HaloperidoL 1 MG TABLET 2 MG PO (20:50)
[2024-04-17] MEDS: Apixaban 5 MG TABLET PO (20:51)
[2024-04-18] VITALS (9 sets, daily range): BP systolic 141–178; BP diastolic 102–123; PULSE 78–102; RESP 12–17; TEMP 36.6–36.9; O2SAT 93–96
[2024-04-18] MEDS: Ondansetron ODT 4 MG TAB.RAPDIS TRANSLINGU (06:18)
--- NOTE | 2024-04-18 08:43 | PM.PNORT ---
Subjective Subjective Date of Service: 04/18/24 Interval history: Patient is an 83-year-old male who is currently in the emergency department after a fall on 04/05/2024. Patient has been experiencing right hip and left ankle pain since date of fall. Patient currently awaiting physical therapy and case management evaluations. Today, the patient is confused, and is actively hallucinating during examination, but is able to be redirected back to interview and exam. No other acute complaints or concerns at this time. Patient is evaluated with his daughter in the room. Physical Exam Vital Signs: Vital Signs: Last Vital Signs Temp 98.4 F 04/18/24 06:09 Pulse 83 04/18/24 06:09 Resp 16 04/18/24 06:09 BP 176/123 H 04/18/24 06:09 Pulse Ox 96 04/18/24 06:09 O2 Del Method Room Air 04/18/24 06:09 BMI result Body Mass Index 13.9 Extrem: Other: On inspection, there is ecchymosis noted on the dorsal aspects of the 2nd to 5th digits on the left toe Mild edema noted about the left lateral ankle There is a noted area of edema and erythema on the lateral aspect of the distal left lower extremity surrounding a small abrasion that the patient reports was a result of his injury, improved from evaluation yesterday On palpation, the patient reports no pain to palpation of the left lateral malleolus Patient reports mild tenderness to palpation of the erythematous and edematous area just proximal to the lateral malleolus No other tenderness to palpation at this time Sensation intact Capillary refill brisk Procedures Date of Service Date of Service: 04/18/24 Progress Note: A&P Assessment and plan (1) Contusion of left ankle: Status: Acute Plan 1. Contusion of left ankle Patient appears to be doing significantly better today than he was yesterday Patient had been weight-bearing on this injury since date of injury up until 2 days ago After discussion with Dr. Sanchez, the patient and his family are made aware that the recommendation is that he wears a boot, but can weight bear as tolerated, has any potential fracture in the lateral malleolus of the left ankle appears to be old. Patient working with PT and case management for potential placement in a rehab facility, and both are aware of this. Patient will follow-up in 1-2 weeks following discharge from the hospital, sooner with any acute concerns Time Spent With Patient Time: Total time managing care of this patient today ____ minutes.
[2024-04-18] MEDS: Isosorbide Mononitrate 30 MG TAB.ER.24H PO (09:37)
[2024-04-18] MEDS: Famotidine 20 MG TABLET 10 MG PO (09:38)
[2024-04-18] MEDS: Amoxicillin/Potassium Clav 500 MG TABLET PO ×2 (09:38→20:30)
[2024-04-18] MEDS: Sertraline HCL 100 MG TABLET PO (09:38)
[2024-04-18] MEDS: Metoprolol Tartrate 25 MG TABLET PO ×2 (09:40→20:27)
[2024-04-18] MEDS: HaloperidoL 1 MG TABLET 2 MG PO ×2 (09:40→20:28)
[2024-04-18] MEDS: Apixaban 5 MG TABLET PO ×2 (09:40→20:28)
[2024-04-18] MEDS: Cholecalciferol (Vitamin D3) 25 MCG TABLET PO (09:41)
[2024-04-18] MEDS: lisinopriL 2.5 MG TABLET PO (09:41)
--- NOTE | 2024-04-18 09:43 | PM.EVENT ---
Event Note Date of Service: 04/18/24 Event Note: Patient's case and images discuss with Dr. Sanchez this morning After discussion, it was decided that the patient did in fact have a fracture of the left lateral malleolus, however this fracture is likely old A joint treatment plan was formed: Patient should wear a boot and can weight bear as tolerated Patient will follow-up in 1-2 weeks in our office for assessment, sooner with any acute concerns Time Spent With Patient Time: Total time managing care of this patient today ____ minutes.
[2024-04-18 11:15] LABS: COVID-19 Test Negative (Negative); IDNOW Serial# 152EDE1D
--- NOTE | 2024-04-18 12:30 | MHC.CM.ED ---
Addendum entered by Arlene Garcia 04/18/24 13:20: Received notification from Camila that they would like to accept the bed at [facility] but still want to speak to the liasion. Liaison made aware. Original Note: Patient remains IN ER. Physical therapy eval completed. Short term rehab is recommended. Referral broadcasted in [facility] to all facilities within 15 miles that are contracted with [facility]. [facility]. Met with , Annia and daughter, Camila in regards to discharge planning. Annia requesting to speak to liaisons of facilities. Liaisons asked to call Annia. Annia will have 1st choice after speaking with liaisons. Continue to monitor for d/c needs.
[2024-04-18] MEDS: Acetaminophen 325 MG TABLET 975 MG PO ×2 (12:33→20:30)
--- NOTE | 2024-04-18 13:08 | PC.NURSE ---
Gave report to Sheridan in overflow, patient to go to overflow once bed is cleaned.
--- NOTE | 2024-04-18 14:17 | PC.NURSE ---
Pt moved to Overflow 4 from Main ED assumed care of pt at this time. Alert oriented to self, hx dementia with increased confusion. Respirations even unlabored, BP remains elevated provider aware. Denies pain at this time. Pt and daughter at bedside. Plan for STR, offer from Christine Mcdonald pending insurance auth.
--- NOTE | 2024-04-18 15:02 | PC.NURSE ---
Speech therapy to bedside for consult.
--- NOTE | 2024-04-18 15:29 | PC.NURSE ---
Diet updated per speech therapy- pt is chopped with thin liquids, pills crushed in puree, 1:1 feed.
--- NOTE | 2024-04-18 15:43 | MHC.SL.SWA ---
Speech Pathologist Impression: Risk of Aspiration Oralpharyngeal Dysphagia Risk of Aspiration Due to: Neurological Condition Reduced Cognition Dysphasia Diet Status: DOWNGRADE from regular solids to CHOPPED (NDD3) Liquid Consistency and Strategies for Safe Swallow: Liquid Intake Recommendation: Thin Liquid Intake Strategies: Small Sips Solid Food Consistency: Dietary Recommendations: Chopped/Advanced (NDD3) Additional Modifications to Solid Foods: Recommend START on a CHOPPED/ADVANCED (NDD3) diet and THIN liquids, pills CRUSHED in PUREE. Foods to be softened and moistened in sauces/gravies. Give small bites, cue as needed for patient to chew well, alternate bites with sips of liquid, ensure oral cavity is cleared before giving more bites. Patient requires total 1:1 assistance feeding and strict aspiration precautions. Oral Medication Intake: Crushed with Puree Please contact the pharmacy regarding appropriate crushable or liquid drug formulations that are available whenever modified delivery is recommended. Compensatory Strategies and Precautions to be Taken for Safe Swallow: Sitting Upright (90 deg) Small Bites and Sips Alternate Liquids/Solids Rate of Ingestion Change Oral Check Avoid Specific Foods Supervision While Eating and Drinking for Safe Swallow: Total Assistance (1:1) Foods to Avoid: Hard, tough to chew solids Swallowing Recommended Treatments: Compens. Strategy Educat. Recommendation for Speech: Inpatient Speech Therapy Comment: MANAGER [employer]EW[employer] will continue to follow to monitor tolerance of modified diet and re-assess for potential upgrade if/when appropriate. Frequency/Duration: M-F PRN Date Range for Service Req: Timeline to reassess: Culinary Instructor Clinican/Clinical Fellow: No Supervisory Statement: I have reviewed and agree with the student/clinical fellow's documentation: N/A Speech Language Pathologist: Elysia Schofield M.A., CCC-MANAGER [employer]
--- NOTE | 2024-04-18 17:00 | PC.NURSE ---
Pt resting eyes closed, respirations even unlabored, NAD, insurance auth pending for [facility]cdonald.
--- NOTE | 2024-04-18 19:10 | PC.NURSE ---
received report from Shandra TRIPP, assume care of pt at this time, cont plan of care
--- NOTE | 2024-04-18 19:37 | MHC.EDTECH ---
Offered food from dinner multiple times, Pt refused multiple times.
--- NOTE | 2024-04-18 20:35 | PC.NURSE ---
spouse at bedside, pt took all of his meds, crush in apple sause, with sips of water, behind his bite. Spouse is trying to get patient to eat
--- NOTE | 2024-04-18 23:29 | PC.NURSE ---
report given ot oncoming nurse at 2300, all questions answered
[2024-04-19] VITALS (7 sets, daily range): BP systolic 140–187; BP diastolic 93–122; PULSE 85–100; RESP 14–20; TEMP 36.8–37.1; O2SAT 93–97
[2024-04-19] MEDS: lisinopriL 2.5 MG TABLET PO (09:40)
[2024-04-19] MEDS: HaloperidoL 1 MG TABLET 2 MG PO (09:40)
[2024-04-19] MEDS: Sertraline HCL 100 MG TABLET PO (09:43)
[2024-04-19] MEDS: Apixaban 5 MG TABLET PO (09:43)
[2024-04-19] MEDS: Isosorbide Mononitrate 30 MG TAB.ER.24H PO (09:45)
[2024-04-19] MEDS: Cholecalciferol (Vitamin D3) 25 MCG TABLET PO (09:48)
[2024-04-19] MEDS: Metoprolol Tartrate 25 MG TABLET PO (09:48)
--- NOTE | 2024-04-19 09:54 | MHC.CM.ED ---
Addendum entered by Arlene Garcia 04/19/24 10:15: Insurance auth obtained by Christine Mcdonald. [facility] BLS booked for 12pm. Patient, Annia, daughter Camila, Jose TRIPP and Marixa ZAFAR aware. Original Note: Patient remains in ER overflow. Waiting for Christine Mcdonald to obtain insurance auth. [facility] PASRR level 2 obtained. Patient's , Annia and daughter, Camila had questions regarding follow up for patient's left hip and ankle. T/W reached out to cindy Laughlin. Truman recommending outpatient follow up in 1-2 weeks. Appointment made with [facility] for 05/03 at 11am. Family will need to get records from [facility] transferred to office. Continue to monitor for d/c needs.
[2024-04-19] MEDS: Amoxicillin/Potassium Clav 500 MG TABLET PO (10:22)
--- NOTE | 2024-04-19 10:56 | PC.NURSE ---
assumed care of pt at 0700, pt resting quietly in bed w eyes closed, family at bedside. family assisted in 1:1 feed and shaved pt's face w an electric razor. pt medicated per NOV - pills taken crushed if possible w applesauce and vanilla pudding d/t pt dislike of bitter taste of mediation. pt given bed bath, clean destiney and brief applied along w barrier cream. prior brief damp w small amount of urine. skin intact, aged ecchymosis to left ankle - pt reporting pain w ROM. plan for transport to [facility] around noon, family at bedside and aware of plan of care.
--- NOTE | 2024-04-19 12:01 | PC.NURSE ---
RN-RN report given to Christine Mcdonald. [facility] at bedside for transport - daughter to transport w pt.
== END 2024-04-19 12:07 ==
PROVIDERS: Physician Assistant; Emergency Provider Emergency Medicine; PCP Internal Medicine
DX: S90.32XA Contusion of left foot, initial encounter (principal); F01.50 Vascular dementia, unspecified severity, without behavioral disturbance, psychotic disturbance, mood disturbance, and anxiety; R26.2 Difficulty in walking, not elsewhere classified; R11.2 Nausea with vomiting, unspecified; L03.116 Cellulitis of left lower limb; R60.0 Localized edema; M16.11 Unilateral primary osteoarthritis, right hip; M25.561 Pain in right knee; M25.551 Pain in right hip; I48.91 Unspecified atrial fibrillation; M79.671 Pain in right foot; M54.50 Low back pain, unspecified; Z79.01 Long term (current) use of anticoagulants; Z11.52 Encounter for screening for COVID-19; Z79.899 Other long term (current) drug therapy
CPT/HCPCS: 36415; 72100; 73502; 73562; 73610; 73630; 80048; 81003; 85025; 87635; 97162; 99285

== ENCOUNTER → 2024-04-17 09:59 | Outpatient (BNV) | payer MEDICARE, SELFPAY ==
[2022-05-27 10:38] VITALS: BP 118/78; BMI 24.3
== END ==
PROVIDERS: Emergency Provider Emergency Medicine; PCP Internal Medicine
DX: S90.32XA Contusion of left foot, initial encounter (principal)
CPT/HCPCS: 99283; 99499